=== PATIENT | male | born 1965 | race Two or more races ===

== ENCOUNTER 2019-05-16 11:43 | Inpatient (IN) | payer BC ==
[~2019-05-16] VITALS: Ht 170.2 cm; Wt 81.2 kg
[2019-05-16 11:58] VITALS: BP 146/90
[2019-05-16] MEDS ORDERED: ZOFRAN ODT8 MG ORAL (12:04)
[2019-05-16] MEDS ORDERED: CIPROFLOXACIN750 MG ORAL (12:04)
[2019-05-16] MEDS ORDERED: METRONIDAZOLE500 MG ORAL (12:04)
[2019-05-16] MEDS ORDERED: FAMOTIDINE20 MG ORAL (12:04)
--- NOTE | 2019-05-16 12:05 | NUR ---
ED Nurse Note: Patient walked into ED from home c/o abdominal pain since 05/08/19, patient reports he is currently taking flagyl 500mg cipro 500mg BID. patient's PMD was concerned about bowel obstruction, and sent patient here for further evaluation. patient is on a hospital gown,a/o x4 ambulatory steady gait, breathing unlabored and even.
[2019-05-16] MEDS ORDERED: Omnipaque-300 100ml vial INJ PRN (12:15)
[2019-05-16] MEDS: Morphine Sulfate 4mg/ml Inj (IV USE ONLY) IVP ONE ×2 (12:30→13:02)
--- NOTE | 2019-05-16 12:50 | NUR ---
ED Nurse Note: patient started to drink oral contrast. tolerated.
--- NOTE | 2019-05-16 12:50 | Emergency Room Report ---
History of Present Illness General Chief Complaint: Abdominal Pain Source: Patient Present Illness HPI 54 YO male presents to the ED c/o 01/17 in severity x 9 days. Seen by his PMD 3 days ago and placed onto Flagyl and Cipro. Pt. reports no improvement in his symptoms. He states he is also taking an antiacid which was rx'd to him by another ED which also evaluated him for his symptoms. He denies having any other medical history or medications. He reports US was done at previous ED and was unremarkable. Just began having vomiting today. Denies blood or feces in the vomit. Describes yellow/white bile appearance of vomitus. reports Last loose stool was 5 minutes ago. Pt. reports he is able to pass gas. Denies blood in the stool. He denies recent travel or ill contacts with similar symptoms. Allergies: Coded Allergies: No Known Allergies (Unverified , 05/16/19) Patient History Past Medical History: see triage record Past Surgical History: none Pertinent Family History: none Reviewed Nursing Documentation: PMH: Agreed; PSxH: Agreed Nursing Documentation-PMH Past Medical History: No Stated History Review of Systems All Other Systems: negative except mentioned in HPI Physical Exam Vital Signs Date Time Temp Pulse Resp B/P (MAP) Pulse Ox O2 Delivery O2 Flow Rate FiO2 05/16/19 11:58 99.0 87 19 146/90 (108) 96 Room Air Sp02 EP Interpretation: reviewed, normal General Appearance: alert, GCS 15, non-toxic, mild distress Head: normocephalic, atraumatic Eyes: bilateral eye normal inspection, bilateral eye PERRL ENT: hearing grossly normal, normal voice Neck: full range of motion Respiratory: lungs clear, normal breath sounds, no respiratory distress, no wheezing, speaking full sentences Cardiovascular #1: regular rate, rhythm, no edema Gastrointestinal: normal bowel sounds, soft, distended, tenderness - diffuse. lower quadrants> upper. no specific localization of tenderness to any particular spot. Rectal: deferred Genitourinary: normal inspection, no CVA tenderness Musculoskeletal: normal range of motion, gait/station normal, non-tender Neurologic: alert, motor strength/tone normal, oriented x3, sensory intact, responsive, speech normal Psychiatric: judgement/insight normal Skin: normal color Medical Decision Making PA Attestation Dr. Damon is my supervising physician whom pt. management has been discussed with. Diagnostic Impression: Primary Impression: Acute pancreatitis Qualified Codes: K85.90 - Acute pancreatitis without necrosis or infection, unspecified Additional Impressions: Abdominal pain Qualified Codes: R10.84 - Generalized abdominal pain Elevated bilirubin ER Course 54 YO male presents to the ED c/o 01/17 in severity x 9 days. Seen by his PMD 3 days ago and placed onto Flagyl and Cipro. Pt. reports no improvement in his symptoms. He states he is also taking an antiacid which was rx'd to him by another ED which also evaluated him for his symptoms. He denies having any other medical history or medications. He reports US was done at previous ED and was unremarkable. Just began having vomiting today. Denies blood or feces in the vomit. Describes yellow/white bile appearance of vomitus. reports Last loose stool was 5 minutes ago. Pt. reports he is able to pass gas. Denies blood in the stool. He denies recent travel or ill contacts with similar symptoms. Ddx considered but are not limited to Diverticulitis, acute appy, diarrhea,UC, PUD, GE, pancreatitis, gallstone Vital signs: are WNL, pt. is afebrile H&PE are most consistent with ORDERS: -CBC: WBC 11.9 - CMP: elevated bilirubin of 1.8 -Lipase:WNL -UA: Most indicative of contamination: presence of equal amounts of bacteria and squamous cells, no elevation in inflammatory markers, nitrite negative. ED INTERVENTIONS: -- 4mg morphine ( pt. declined) - Toradol 15mg IV -500cc NS IV Bolus -1 Liter NS IV bolus -PT. NPO DISPOSITION: at this time pt. will be admitted to the [facility] by Dr. Underwood for acute pancreatitis. Dr. Underwood agreed to admit the pt. under the [facility] and to continue pt. care management. Labs Test 05/16/19 12:18 White Blood Count 11.9 K/UL (4.8-10.8) Red Blood Count 5.04 M/UL (4.70-6.10) Hemoglobin 15.5 G/DL (14.2-18.0) Hematocrit 45.8 % (42.0-52.0) Mean Corpuscular Volume 91 FL (80-99) Mean Corpuscular Hemoglobin 30.7 PG (27.0-31.0) Mean Corpuscular Hemoglobin Concent 33.8 G/DL (32.0-36.0) Red Cell Distribution Width 12.7 % (11.6-14.8) Platelet Count 136 K/UL (150-450) Mean Platelet Volume 6.1 FL (6.5-10.1) Neutrophils (%) (Auto) 82.8 % (45.0-75.0) Lymphocytes (%) (Auto) 8.1 % (20.0-45.0) Monocytes (%) (Auto) 7.6 % (1.0-10.0) Eosinophils (%) (Auto) 0.1 % (0.0-3.0) Basophils (%) (Auto) 1.4 % (0.0-2.0) Urine Color Yellow Urine Appearance Clear Urine pH 6 (4.5-8.0) Urine Specific [place] 1.020 (1.005-1.035) Urine Protein 2+ (NEGATIVE) Urine Glucose (UA) Negative (NEGATIVE) Urine Ketones 4+ (NEGATIVE) Urine Blood 1+ (NEGATIVE) Urine Nitrite Negative (NEGATIVE) Urine Bilirubin Negative (NEGATIVE) Urine Urobilinogen Normal MG/DL (0.0-1.0) Urine Leukocyte Esterase 1+ (NEGATIVE) Urine RBC 2-4 /HPF (0 - 0) Urine WBC 0-2 /HPF (0 - 0) Urine Squamous Epithelial Cells Occasional /LPF Urine Bacteria Occasional /HPF (NONE) Urine Mucus Few /LPF (NONE/OCC) Sodium Level 139 MMOL/L (136-145) Potassium Level 4.0 MMOL/L (3.5-5.1) Chloride Level 101 MMOL/L (98-107) Carbon Dioxide Level 30 MMOL/L (21-32) Anion Gap 8 mmol/L (5-15) Blood Urea Nitrogen 10 mg/dL (7-18) Creatinine 1.0 MG/DL (0.55-1.30) Estimat Glomerular Filtration Rate > 60 mL/min (>60) Glucose Level 114 MG/DL (74-106) Calcium Level 8.8 MG/DL (8.5-10.1) Total Bilirubin 1.8 MG/DL (0.2-1.0) Direct Bilirubin 0.4 MG/DL (0.0-0.3) Aspartate Amino Transf (AST/SGOT) 27 U/L (15-37) Alanine Aminotransferase (ALT/SGPT) 41 U/L (12-78) Alkaline Phosphatase 81 U/L (46-116) Total Protein 8.0 G/DL (6.4-8.2) Albumin 3.8 G/DL (3.4-5.0) Globulin 4.2 g/dL Albumin/Globulin Ratio 0.9 (1.0-2.7) Amylase Level 44 U/L (25-115) Lipase 143 U/L (73-393) CT/MRI/US Diagnostic Results CT/MRI/US Diagnostic Results : Imaging Test Ordered: CT Abdomen and Pelvis W. Contrast Impression " Impression: Findings compatible with uncomplicated acute pancreatitis Unusual intermediate attenuation of the portal splenic veins and superior mesenteric vein. Attenuation is lower than expected normal enhancement but somewhat higher than would be expected in thrombosis. Possibly representing flow artifact, although the presence of periportal collaterals does suggest thrombosis. Recommend duplex sonography to confirm Degenerative lumbosacral spondylosis Prostatomegaly ".---- Per official radiology report- Please see report for specific details. Last Vital Signs Date Time Temp Pulse Resp B/P (MAP) Pulse Ox O2 Delivery O2 Flow Rate FiO2 05/16/19 11:58 99.0 87 19 146/90 (108) 96 Room Air Disposition: ADMITTED INPATIENT Condition: Serious Larissa Pena May 16, 2019 12:50
[2019-05-16 12:58] LABS: BASOPHILS % (AUTO) 1.4 % (0.0-2.0); EOSINOPHILS % (AUTO) 0.1 % (0.0-3.0); HEMATOCRIT 45.8 % (42.0-52.0); HEMOGLOBIN 15.5 G/DL (14.2-18.0); LYMPHOCYTES % (AUTO) 8.1 % (20.0-45.0); MEAN CORPUSCULAR VOLUME 91 FL (80-99); MONOCYTES % (AUTO) 7.6 % (1.0-10.0); NEUTROPHILS % (AUTO) 82.8 % (45.0-75.0); PLATELET COUNT 136 K/UL (150-450); RED BLOOD COUNT 5.04 M/UL (4.70-6.10); RED CELL DISTRIBUTION WIDTH 12.7 % (11.6-14.8); WHITE BLOOD COUNT 11.9 K/UL (4.8-10.8)
[2019-05-16 12:59] LABS: APPEARANCE,URINE CLEAR; BILIRUBIN, URINE NEGATIVE (NEGATIVE); GLUCOSE, URINE (UA) NEGATIVE (NEGATIVE); KETONES,URINE 4+ (NEGATIVE); LEUKOCYTE ESTERASE ,URINE 1+ (NEGATIVE); NITRITE,URINE NEGATIVE (NEGATIVE); PH,URINE 6 (4.5-8.0); PROTEIN,URINE 2+ (NEGATIVE); UROBILINOGEN,URINE NORMAL MG/DL (0.0-1.0)
[2019-05-16 13:03] LABS: ANION GAP 8 mmol/L (5-15); BLOOD UREA NITROGEN 10 mg/dL (7-18); CALCIUM 8.8 MG/DL (8.5-10.1); CARBON DIOXIDE 30 MMOL/L (21-32); CHLORIDE 101 MMOL/L (98-107); SODIUM 139 MMOL/L (136-145)
[2019-05-16 13:05] LABS: COLOR,URINE YELLOW
--- NOTE | 2019-05-16 13:07 | Emergency Room Report ---
History of Present Illness General Chief Complaint: Abdominal Pain Source: Patient Present Illness Allergies: Coded Allergies: No Known Allergies (Unverified , 05/16/19) Patient History Past Medical History: see triage record Past Surgical History: none Pertinent Family History: none Reviewed Nursing Documentation: PMH: Agreed; PSxH: Agreed Nursing Documentation-PMH Past Medical History: No Stated History Physical Exam Vital Signs Date Time Temp Pulse Resp B/P (MAP) Pulse Ox O2 Delivery O2 Flow Rate FiO2 05/16/19 11:58 99.0 87 19 146/90 (108) 96 Room Air Medical Decision Making Last Vital Signs Date Time Temp Pulse Resp B/P (MAP) Pulse Ox O2 Delivery O2 Flow Rate FiO2 05/16/19 11:58 99.0 87 19 146/90 (108) 96 Room Air Larissa Pena May 16, 2019 13:07
[2019-05-16 13:18] LABS: ALANINE AMINOTRANSFERASE 41 U/L (12-78); ALBUMIN 3.8 G/DL (3.4-5.0); ALBUMIN/GLOBULIN RATIO 0.9 (1.0-2.7); ALKALINE PHOSPHATASE 81 U/L (46-116); ASPARTATE AMINO TRANSFERASE 27 U/L (15-37); BILIRUBIN,TOTAL 1.8 MG/DL (0.2-1.0)
[2019-05-16] MEDS ORDERED: Ketorolac 30mg Inj IV ONE (13:30)
[2019-05-16 13:58] LABS: BILIRUBIN,DIRECT 0.4 MG/DL (0.0-0.3)
--- NOTE | 2019-05-16 14:44 | NUR ---
ED Nurse Note: patient taken to CT scan.
--- NOTE | 2019-05-16 16:18 | Diagnostic Imaging Report ---
Clinical Indication: Abdominal pain Technique: No oral contrast utilized, per emergency room physician request IV administration nonionic contrast. Venous phase spiral acquisition obtained through the abdomen and pelvis. Multiplanar reconstructions were generated. Total dose length product 1075 mGycm. CTDIvol(s) 19 mGy. Dose reduction achieved using automated exposure control Comparison: none Findings: There is infiltration of the peripancreatic fat and slight indistinctness of the pancreatic margins, particularly in the region of the head and uncinate process. No discrete fluid collections are demonstrated. The pancreas enhances normally. Intrahepatic portal vein radicals and the hepatic veins enhance normally. However, the main portal vein, splenic vein, superior mesenteric vein demonstrate low-attenuation than would be expected with normal enhancement, although a higher in attenuation than would be expected if thrombosed. Also, collateral veins are seen surrounding the main portal vein suggestive of cavernous transformation The liver demonstrates diffuse mild hypoattenuation, consistent with fatty change. No focal abnormalities. The gallbladder is unremarkable. The spleen, adrenals, kidneys are unremarkable. No pelvic mass or adenopathy. The prostate is enlarged. The GI tract is well opacified. The distal esophagus, stomach, duodenum are unremarkable. There is no evidence of diverticulosis or diverticulitis. The appendix is normal. No small bowel distention or small bowel wall thickening. No free or loculated intraperitoneal gas or fluid. The included lung bases are clear. The bones are unremarkable except for degenerative changes of the lumbosacral junction.. Impression: Findings compatible with uncomplicated acute pancreatitis Unusual intermediate attenuation of the portal splenic veins and superior mesenteric vein. Attenuation is lower than expected normal enhancement but somewhat higher than would be expected in thrombosis. Possibly representing flow artifact, although the presence of periportal collaterals does suggest thrombosis. Recommend duplex sonography to confirm Degenerative lumbosacral spondylosis Prostatomegaly The CT scanner at [facility] is accredited by the [employer] and the scans are performed using protocols designed to limit radiation exposure to as low as reasonably achievable to attain images of sufficient resolution adequate for diagnostic evaluation.
--- NOTE | 2019-05-16 16:57 | NUR ---
ED Nurse Note: patient is resting comfortably in bed, in no acute distress
[2019-05-16 17:20] VITALS: BP 128/72
--- NOTE | 2019-05-16 18:15 | NUR ---
NURSE NOTES: Report received from Lois ED RN. Patient [place] [facility] [place] to recommendation from PCP due to abdominal pain. Ruled out bowel obstruction, but found to have pancreatitis. Admitted inpatient due to new found pancreatitis. Patient brought to via wheel chair. Belongings received. Reviewed with patient and ED patient director of healthcare systems. All belongings on bedside night stand with patient. Patient declined locking up anything with security. Patient able to ambulate to bed. No complaints of chest pain or shortness of breath. Patient awake and alert x 4. No complaints of pain at this time, patient states that pain medication given in ED relieved him from his abdominal pain. Skin in tact, no open areas, no skin issues to be noted. 20 ulices IV noted in left ac. IV patent, flushes, and intact. Oriented patient to unit. Educated patient to call for any needs or concerns. Patient was able to verbalize that he will make his needs known. Currently NPO. Patient has no needs to be met at this time. Will pass along to next shift to finish patient admission. will continue to follow plan of care in the meantime.
--- NOTE | 2019-05-16 18:15 | NUR ---
ED Nurse Note: patient is transferred to with [employer] [employer] with all of his belongings.
[2019-05-16 18:31] VITALS: BP 147/79
--- NOTE | 2019-05-16 19:16 | NUR ---
HAND-OFF: Report given to Cherrie SAHU.Patienta wake and alert x 4. Patient in stable condition. Communicated to Cherrie SAHU that admission still needs to be completed.
[2019-05-16] MEDS ORDERED: Mylanta II UD 30ml ORAL PRN (20:15)
[2019-05-16] MEDS: Heparin 5000 units/ml inj SUBQ SCH (21:00)
[2019-05-16] MEDS: LR 1000ml 1,000 ML IV SCH (21:45)
[2019-05-16] MEDS: Piperacillin/Tazobactam 3.375 GM in NS 110 ML IVPB SCH (21:45)
--- NOTE | 2019-05-16 23:05 | NUR ---
NURSE NOTES: Received pt from Jerome SAHU. pt is awake, alert and verbally able to needs known. Breathing on room air no acute distress noted. no c/o pain, n/v at this time. Administered medication as ordered and pt tolerated well. Instructed pt about NPO status and pt verbalized understanding. Bed in low and locked position. Call light within reach. will continue to monitor the pt.
[2019-05-17] VITALS: BP 137/80
[2019-05-17] MEDS: Hydromorphone 0.5mg/0.5ml inj IVP PRN ×2 (01:35→05:29)
[2019-05-17 04:42] VITALS: BP 134/63
[2019-05-17] MEDS: LR 1000ml 1,000 ML IV SCH ×4 (05:32→22:30)
[2019-05-17] MEDS: Piperacillin/Tazobactam 3.375 GM in NS 110 ML IVPB SCH (05:33)
[2019-05-17 06:33] LABS: HEMATOCRIT 43.9 % (42.0-52.0); LYMPHOCYTES % (AUTO) 20.3 % (20.0-45.0); MEAN CORPUSCULAR VOLUME 93 FL (80-99); MONOCYTES % (AUTO) 10.8 % (1.0-10.0); NEUTROPHILS % (AUTO) 66.9 % (45.0-75.0); PLATELET COUNT 137 K/UL (150-450); RED BLOOD COUNT 4.74 M/UL (4.70-6.10)
[2019-05-17 06:56] LABS: ALANINE AMINOTRANSFERASE 34 U/L (12-78); ALBUMIN 3.3 G/DL (3.4-5.0); ALBUMIN/GLOBULIN RATIO 0.8 (1.0-2.7); ALKALINE PHOSPHATASE 76 U/L (46-116); ANION GAP 10 mmol/L (5-15); ASPARTATE AMINO TRANSFERASE 25 U/L (15-37); BILIRUBIN,TOTAL 1.8 MG/DL (0.2-1.0); BLOOD UREA NITROGEN 13 mg/dL (7-18); CALCIUM 8.4 MG/DL (8.5-10.1); CARBON DIOXIDE 28 MMOL/L (21-32); CHLORIDE 104 MMOL/L (98-107); CREATININE 1.2 MG/DL (0.55-1.30); POTASSIUM 3.5 MMOL/L (3.5-5.1); SODIUM 142 MMOL/L (136-145)
[2019-05-17] MEDS ORDERED: Morphine Sulfate 4mg/ml Inj (IV USE ONLY) IVP SCH (07:00)
[2019-05-17 07:02] LABS: BILIRUBIN,DIRECT 0.4 MG/DL (0.0-0.3)
--- NOTE | 2019-05-17 07:30 | NUR ---
HAND-OFF: Report given to LUIS ALBERTO Abreu.
--- NOTE | 2019-05-17 07:50 | NUR ---
NURSE NOTES: received report from LUIS ALBERTO Will. patient in bed. alert. oriented. verbally responsive. no respiratory distress noted. c/o pain on ABD. given morphine by LUIS ALBERTO Will. will monitor pain level. IV on LAC 20g running LR@125/hr and zosyn. the bed in the lowest position and locked. call light within reach. will continue to provide plan of care.
[2019-05-17 08:00] VITALS: BP 155/102
--- NOTE | 2019-05-17 08:20 | History and Physical ---
History of Present Illness General Date patient seen: May 17, 2019 Reason for Hospitalization: Abdominal Pain Present Illness HPI This is a 54-year-old male, very pleasant, with no known medical problems who presented to the emergency department with 10 out of 10 abdominal pain that initially started on May 08 and progressively got worse pain is mainly in the epigastric region radiating to the back and has progressively gotten worse and is diffuse. Patient complains of some loose stools and few episodes of nonbloody emesis. He had an extensive work-up by his primary care doctor which was unrevealing for the most part, including stool studies, but was notable for mild leukocytosis with WBC count of 10, hepatitis B core IgG antibodies positive , hepatitis B surface antibody >1000, hepatitis A antibody reactive, CRP, 38, CK level in the 237 (mildly elevated), ALT 45, platelet count 125. Pain persisted and got worse and patient was sent to the emergency room by his primary care physician. He denies any chest pain, palpitations, dizziness, lightheadedness, shortness of breath, lower extremity edema, fever, chills. Patient denies excessive alcohol use however he tells me he was drinking more than usual during the holiday season. He denies any ctxd-pxy-safhmra medications, recent travel or any known insect bites. ED course: On arrival vitals: BP 146/90, pulse 87, temperature 99 Fahrenheit, oxygen saturation 97% on room air Lipase within normal limits CT abdomen pelvis was suggestive of acute pancreatitis and he was admitted for further management. 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 Family history: History of pancreatic cancer grandfather Allergies: Coded Allergies: No Known Allergies (Unverified , 05/16/19) Medication History Scheduled Ciprofloxacin Hcl (Ciprofloxacin Hcl*), 500 MG ORAL DAILY, (Reported) Famotidine* (Pepcid 20mg tablet*), 20 MG ORAL TWICE A DAY, (Reported) Metronidazole* (Flagyl*), 500 MG ORAL THREE TIMES A DAY, (Reported) Scheduled PRN Ondansetron Odt* (Zofran Odt*), 4 MG ORAL Q6H PRN for Nausea & Vomiting, ( Reported) Patient History Healthcare decision maker Resuscitation status Full Code Advanced Directive on File Review of Systems Constitutional: Denies: no symptoms, see HPI, chills, sweats, fever, malaise, weakness, other Eye: Denies: no symptoms, see HPI, eye pain, blurred vision, tearing, double vision, nose pain, nose congestion, acuity changes, discharge, other ENT: Denies: no symptoms, see HPI, ear pain, ear discharge, nose pain, nose congestion, throat pain, throat swelling, mouth pain, hearing loss, nasal discharge, other Respiratory: Denies: no symptoms, see HPI, cough, orthopnea, shortness of breath, stridor, wheezing, REYNOLDS, sputum, other Cardiovascular: Denies: no symptoms, see HPI, chest pain, edema, palpitations, syncope, PND, other Gastrointestinal: Reports: abdominal pain, diarrhea, nausea, vomiting Genitourinary: Denies: no symptoms, see HPI, discharge, dysuria, frequency, hematuria, pain, retention, incontinence, urgency, vag bleed/dc, other Musculoskeletal: Denies: no symptoms, see HPI, back pain, gout, joint pain, joint swelling, muscle pain, muscle stiffness, other Skin: Denies: no symptoms, see HPI, rash, change in color, change in hair/nails , dryness, lesions, other Psychiatric: Denies: no symptoms, see HPI, prior hx, anxiety, depressed feelings, emotional problems, SI, HI, hallucinations, other Neurological: Denies: no symptoms, see HPI, headache, numbness, paresthesia, seizure, tingling, tremors, focal weakness, syncope, dizziness, other Endocrine: Denies: no symptoms, see HPI, excessive sweating, flushing, intolerance to temperature, increased thirst, increased urine, unexplained weight loss, other Hematologic/Lymphatic: Denies: no symptoms, see HPI, anemia, blood clots, easy bleeding, easy bruising, swollen glands, diathesis, other Physical Exam General Appearance: alert, severe distress - due to pain Lines, tubes and drains: peripheral HEENT: normocephalic, atraumatic, anicteric, mucous membranes moist, PERRL, EOMI Neck: non-tender, supple Respiratory/Chest: chest wall non-tender, lungs clear, normal breath sounds, no respiratory distress, no accessory muscle use Cardiovascular/Chest: normal peripheral pulses, normal rate, regular rhythm, no gallop/murmur, no JVD Abdomen: soft, tender - epigastric mainly, also diffuse. No guarding, no rebound Extremities: normal range of motion, no edema, no cyanosis Skin Exam: normal pigmentation, warm/dry Neurologic: no motor/sensory deficits, alert, oriented x 3, responsive Musculoskeletal: normal muscle bulk Last 24 Hour Vital Signs Date Time Temp Pulse Resp B/P (MAP) Pulse Ox O2 Delivery O2 Flow Rate FiO2 05/17/19 08:00 100.0 83 17 155/102 (119) 99 05/17/19 04:42 98.1 60 18 134/63 (86) 97 05/17/19 00:00 98.0 63 18 137/80 (99) 97 05/16/19 21:00 Room Air 05/16/19 20:48 Room Air 05/16/19 18:31 99.1 79 18 147/79 (101) 98 05/16/19 18:15 99.0 82 19 128/72 96 Room Air 05/16/19 17:20 99.0 82 19 128/72 96 Room Air 05/16/19 14:07 99.0 05/16/19 13:08 87 19 Room Air 05/16/19 11:58 99.0 87 19 146/90 (108) 96 Room Air 05/16/19 11:58 99.0 87 19 146/90 96 Room Air Intake and Output 05/16/19 05/17/19 19:00 07:00 Intake Total 985.0 ml Balance 985.0 ml Intake IV Total 985.0 ml # Voids 1 Laboratory Tests Test 05/16/19 12:18 05/17/19 05:21 White Blood Count 11.9 K/UL (4.8-10.8) H 11.0 K/UL (4.8-10.8) H Red Blood Count 5.04 M/UL (4.70-6.10) 4.74 M/UL (4.70-6.10) Hemoglobin 15.5 G/DL (14.2-18.0) 15.0 G/DL (14.2-18.0) Hematocrit 45.8 % (42.0-52.0) 43.9 % (42.0-52.0) Mean Corpuscular Volume 91 FL (80-99) 93 FL (80-99) Mean Corpuscular Hemoglobin 30.7 PG (27.0-31.0) 31.6 PG (27.0-31.0) H Mean Corpuscular Hemoglobin Concent 33.8 G/DL (32.0-36.0) 34.1 G/DL (32.0-36.0) Red Cell Distribution Width 12.7 % (11.6-14.8) 13.0 % (11.6-14.8) Platelet Count 136 K/UL (150-450) L 137 K/UL (150-450) L Mean Platelet Volume 6.1 FL (6.5-10.1) L 6.4 FL (6.5-10.1) L Neutrophils (%) (Auto) 82.8 % (45.0-75.0) H 66.9 % (45.0-75.0) Lymphocytes (%) (Auto) 8.1 % (20.0-45.0) L 20.3 % (20.0-45.0) Monocytes (%) (Auto) 7.6 % (1.0-10.0) 10.8 % (1.0-10.0) H Eosinophils (%) (Auto) 0.1 % (0.0-3.0) 1.0 % (0.0-3.0) Basophils (%) (Auto) 1.4 % (0.0-2.0) 1.0 % (0.0-2.0) Urine Color Yellow Urine Appearance Clear Urine pH 6 (4.5-8.0) Urine Specific [place] 1.020 (1.005-1.035) Urine Protein 2+ (NEGATIVE) H Urine Glucose (UA) Negative (NEGATIVE) Urine Ketones 4+ (NEGATIVE) H Urine Blood 1+ (NEGATIVE) H Urine Nitrite Negative (NEGATIVE) Urine Bilirubin Negative (NEGATIVE) Urine Urobilinogen Normal MG/DL (0.0-1.0) Urine Leukocyte Esterase 1+ (NEGATIVE) H Urine RBC 2-4 /HPF (0 - 0) H Urine WBC 0-2 /HPF (0 - 0) Urine Squamous Epithelial Cells Occasional /LPF Urine Bacteria Occasional /HPF (NONE) Urine Mucus Few /LPF (NONE/OCC) H Sodium Level 139 MMOL/L (136-145) 142 MMOL/L (136-145) Potassium Level 4.0 MMOL/L (3.5-5.1) 3.5 MMOL/L (3.5-5.1) Chloride Level 101 MMOL/L (98-107) 104 MMOL/L (98-107) Carbon Dioxide Level 30 MMOL/L (21-32) 28 MMOL/L (21-32) Anion Gap 8 mmol/L (5-15) 10 mmol/L (5-15) Blood Urea Nitrogen 10 mg/dL (7-18) 13 mg/dL (7-18) Creatinine 1.0 MG/DL (0.55-1.30) 1.2 MG/DL (0.55-1.30) Estimat Glomerular Filtration Rate > 60 mL/min (>60) > 60 mL/min (>60) Glucose Level 114 MG/DL (74-106) H 94 MG/DL (74-106) Calcium Level 8.8 MG/DL (8.5-10.1) 8.4 MG/DL (8.5-10.1) L Total Bilirubin 1.8 MG/DL (0.2-1.0) H 1.8 MG/DL (0.2-1.0) H Direct Bilirubin 0.4 MG/DL (0.0-0.3) H 0.4 MG/DL (0.0-0.3) H Aspartate Amino Transf (AST/SGOT) 27 U/L (15-37) 25 U/L (15-37) Alanine Aminotransferase (ALT/SGPT) 41 U/L (12-78) 34 U/L (12-78) Alkaline Phosphatase 81 U/L (46-116) 76 U/L (46-116) Total Protein 8.0 G/DL (6.4-8.2) 7.4 G/DL (6.4-8.2) Albumin 3.8 G/DL (3.4-5.0) 3.3 G/DL (3.4-5.0) L Globulin 4.2 g/dL 4.1 g/dL Albumin/Globulin Ratio 0.9 (1.0-2.7) L 0.8 (1.0-2.7) L Amylase Level 44 U/L (25-115) Lipase 143 U/L (73-393) Height (Feet): 5 Height (Inches): 7.00 Weight (Pounds): 170 Medications Current Medications Medications (Trade) Dose Ordered Sig/Tonie Route PRN Reason Start Time Stop Time Status Last Admin Dose Admin Acetaminophen (Tylenol) 650 mg Q4H PRN ORAL fever 05/16/19 20:19 06/15/19 20:18 Al Hydroxide/Mg Hydroxide (Mylanta II) 30 ml Q6H PRN ORAL dyspepsia 05/16/19 20:15 06/15/19 20:14 Barium Sulfate (Readi-Cat 2) 450 ml NOW PRN ORAL Radiology Procedure 05/16/19 12:15 05/18/19 12:07 Dextrose (Dextrose 50%) 25 ml Q30M PRN IV Hypoglycemia 05/16/19 20:15 06/15/19 20:14 Dextrose (Dextrose 50%) 50 ml Q30M PRN IV Hypoglycemia 05/16/19 20:15 06/15/19 20:14 Diphenhydramine HCl (Benadryl) 25 mg Q6H PRN ORAL Itching/Pruritis 05/16/19 20:15 06/15/19 20:14 Heparin Sodium (Porcine) (Heparin 5000 units/ml) 5,000 units EVERY 12 HOURS SUBQ 05/16/19 21:00 06/15/19 20:59 Hydromorphone HCl (Dilaudid) 0.5 mg Q4H PRN IVP For Pain 05/16/19 20:19 05/23/19 20:18 05/17/19 05:29 Iohexol (OMNIPAQUE-300 100ml) 100 ml NOW PRN INJ Radiology Procedure 05/16/19 12:15 05/18/19 12:07 Lactated Ringer's 1,000 ml @ 125 mls/hr Q8H IV 05/16/19 22:00 06/15/19 21:59 05/17/19 05:32 Ondansetron HCl (Zofran) 4 mg Q6H PRN IVP Nausea & Vomiting 05/16/19 20:15 06/15/19 20:14 Piperacillin Sod/ Tazobactam Sod 3.375 gm/Sodium Chloride 110 ml @ 27.5 mls/hr EVERY 8 HOURS IVPB 05/16/19 22:00 05/21/19 21:59 05/17/19 05:[address] abdomen pelvis with IV contrast: There is infiltration of the peripancreatic fat and slight indistinctness of the pancreatic margins, particularly in the region of the head and uncinate process. No discrete fluid collections are demonstrated. The pancreas enhances normally. Intrahepatic portal vein radicals and the hepatic veins enhance normally. However, the main portal vein, splenic vein, superior mesenteric vein demonstrate low-attenuation than would be expected with normal enhancement, although a higher in attenuation than would be expected if thrombosed. Also, collateral veins are seen surrounding the main portal vein suggestive of cavernous transformation The liver demonstrates diffuse mild hypoattenuation, consistent with fatty change. No focal abnormalities. The gallbladder is unremarkable. The spleen, adrenals, kidneys are unremarkable. No pelvic mass or adenopathy. The prostate is enlarged. The GI tract is well opacified. The distal esophagus, stomach, duodenum are unremarkable. There is no evidence of diverticulosis or diverticulitis. The appendix is normal. No small bowel distention or small bowel wall thickening. No free or loculated intraperitoneal gas or fluid. The included lung bases are clear. The bones are unremarkable except for degenerative changes of the lumbosacral junction.. Impression: Findings compatible with uncomplicated acute pancreatitis Abdominal ultrasound: The liver is heterogeneous showing a coarsened echotexture and is overall increase in echogenicity consistent with fatty infiltration.. Doppler interrogation of the main portal vein shows patency with hepatopedal, monophasic flow. There is no biliary ductal dilatation identified. Gallbladder is unremarkable. CBD is 3.8 mm in diameter. There demonstrated part of the pancreas, aorta and IVC show no definite abnormalities. Both kidneys appear unremarkable. There is no hydronephrosis. IMPRESSION: Fatty liver. No evidence of biliary ductal dilatation. Assessment/Plan Problem List: (1) Acute pancreatitis ICD Codes: K85.90 - Acute pancreatitis without necrosis or infection, unspecified SNOMED: 204176372 Qualifiers: Qualified Codes: K85.90 - Acute pancreatitis without necrosis or infection, unspecified (2) Fatty liver ICD Codes: K76.0 - Fatty (change of) liver, not elsewhere classified SNOMED: 316943159 (3) Elevated bilirubin ICD Codes: R17 - Unspecified jaundice SNOMED: 07565805 Status: stable Assessment/Plan: This is a 54-year-old male who presented with severe abdominal pain. His amylase and lipase are within normal limits however his CT abdomen pelvis demonstrated acute uncomplicated pancreatitis. He denies heavy alcohol use however admits that he was drinking more than usual during the holiday season. His LFTs are only remarkable for an elevated bilirubin of 1.8 with normal transaminases. His lactic acid is within normal limits at 1.7 which would go against bowel ischemia. His abdominal ultrasound shows fatty liver. Unremarkable gallbladder and there is no biliary ductal dilatation. Doppler interrogation of the main portal vein shows patency with hepatopetal monophasic flow. 1. Acute pancreatitis. Possibly alcohol induced 2. Fatty infiltration of the liver 3. Elevated bilirubin 1.8 4. Mild leukocytosis, likely reactive 5. Previous exposure to hepatitis B Plan Admit to [facility] N.p.o. IV hydration with IV NS at continuous 150 mL/h Pain control with IV morphine 2mg every 4 hours for mild pain, IV Dilaudid 1 mg every 4 hours for moderate pain and 2 mg every 4 hours for severe pain GI consult Dr. Gonzalez, Surgical consult Dr. Lyon Rule out acute coronary syndrome, troponin, CPK, EKG Check lipid panel, hemoglobin A1c Monitor LFTs Monitor white count GI and DVT prophylaxis: Heparin subcutaneous I spent 70 minutes on this encounter. Greater than 50% spent on counseling and care coordination. I spent an additional 35 minutes in reviewing the outside records, labs, imaging and discussing with primary care provider and consultants. Case discussed at length with all consultants and patient's primary care provider . Time of note may not reflect time of encounter. Amor Hopper M.D. May 17, 2019 08:20
[2019-05-17] MEDS: Heparin 5000 units/ml inj SUBQ SCH ×2 (09:00→21:00)
[2019-05-17] MEDS ORDERED: HYDROmorphone 2 MG in NS 55 ML IVPB PRN (09:00)
[2019-05-17] MEDS ORDERED: HYDROmorphone 1mg/ml Carpuject IVP SCH (09:00)
--- NOTE | 2019-05-17 10:45 | NUR ---
CASE MANAGEMENT:REVIEW 54 YR OLD MALE PRESENTED TO ER FROM HOME CC;ABDOMINAL PAIN SI;ACUTE PANCREATITIS. ELEVATED BILIRUBIN. 99.0 82 19 128/72 96% ON RA WBC 11.9 T [address]I 1.[address] = ACUTE PANCREATITIS IS;IV MORPHINE X1 IV TORADOL X1 IV PEPCID X1 IV ZOFRAN X1 IVF NS BOLUS X1 ADMITTED TO MED SURG MED SURG STATUS DCP;TO HOME
--- NOTE | 2019-05-17 10:51 | NUR ---
*-* INSURANCE *-* ALL AVAILABLE CLINICALS HAVE BEEN FAXED TO: [facility] REF#[id number] NO [facility]#[phone] FAX#[phone] REVIEWS/CLINICALS
--- NOTE | 2019-05-17 11:56 | General Progress Note ---
Assessment/Plan Problem List: (1) Abdominal pain ICD Codes: R10.9 - Unspecified abdominal pain SNOMED: 53992925 Qualifiers: Qualified Codes: R10.84 - Generalized abdominal pain (2) Acute pancreatitis ICD Codes: K85.90 - Acute pancreatitis without necrosis or infection, unspecified SNOMED: 317229718 Qualifiers: Qualified Codes: K85.90 - Acute pancreatitis without necrosis or infection, unspecified (3) Elevated bilirubin ICD Codes: R17 - Unspecified jaundice SNOMED: 10700689 Assessment/Plan: IVF NPO H/O ETOH usage abd us CT reviewed thiamine/folate/MVI Subjective ROS Limited/Unobtainable: Yes Allergies: Coded Allergies: No Known Allergies (Unverified , 05/16/19) Objective Last 24 Hour Vital Signs Date Time Temp Pulse Resp B/P (MAP) Pulse Ox O2 Delivery O2 Flow Rate FiO2 05/17/19 09:00 Room Air 05/17/19 08:00 100.0 83 17 155/102 (119) 99 05/17/19 04:42 98.1 60 18 134/63 (86) 97 05/17/19 00:00 98.0 63 18 137/80 (99) 97 05/16/19 21:00 Room Air 05/16/19 20:48 Room Air 05/16/19 18:31 99.1 79 18 147/79 (101) 98 05/16/19 18:15 99.0 82 19 128/72 96 Room Air 05/16/19 17:20 99.0 82 19 128/72 96 Room Air 05/16/19 14:07 99.0 05/16/19 13:08 87 19 Room Air 05/16/19 11:58 99.0 87 19 146/90 (108) 96 Room Air 05/16/19 11:58 99.0 87 19 146/90 96 Room Air Intake and Output 05/16/19 05/17/19 19:00 07:00 Intake Total 985.0 ml Balance 985.0 ml Intake IV Total 985.0 ml # Voids 1 Laboratory Tests 05/16/19 12:18: White Blood Count 11.9H, Red Blood Count 5.04, Hemoglobin 15.5, Hematocrit 45.8 , Mean Corpuscular Volume 91, Mean Corpuscular Hemoglobin 30.7, Mean Corpuscular Hemoglobin Concent 33.8, Red Cell Distribution Width 12.7, Platelet Count 136L, Mean Platelet Volume 6.1L, Neutrophils (%) (Auto) 82.8H, Lymphocytes (%) (Auto) 8.1L, Monocytes (%) (Auto) 7.6, Eosinophils (%) (Auto) 0.1, Basophils (%) (Auto) 1.4, Urine Color Yellow, Urine Appearance Clear, Urine pH 6, Urine Specific [place] 1.020, Urine Protein 2+H, Urine Glucose (UA) Negative, Urine Ketones 4+H, Urine Blood 1+H, Urine Nitrite Negative, Urine Bilirubin Negative, Urine Urobilinogen Normal, Urine Leukocyte Esterase 1+H, Urine RBC 2-4H, Urine WBC 0-2, Urine Squamous Epithelial Cells Occasional, Urine Bacteria Occasional, Urine Mucus FewH, Sodium Level 139, Potassium Level 4.0, Chloride Level 101, Carbon Dioxide Level 30, Anion Gap 8, Blood Urea Nitrogen 10, Creatinine 1.0, Estimat Glomerular Filtration Rate > 60, Glucose Level 114H, Calcium Level 8.8, Total Bilirubin 1.8H, Direct Bilirubin 0.4H, Aspartate Amino Transf (AST/SGOT) 27, Alanine Aminotransferase (ALT/SGPT) 41, Alkaline Phosphatase 81, Total Protein 8.0, Albumin 3.8, Globulin 4.2, Albumin/ Globulin Ratio 0.9L, Amylase Level 44, Lipase 143 05/17/19 05:21: White Blood Count 11.0H, Red Blood Count 4.74, Hemoglobin 15.0, Hematocrit 43.9 , Mean Corpuscular Volume 93, Mean Corpuscular Hemoglobin 31.6H, Mean Corpuscular Hemoglobin Concent 34.1, Red Cell Distribution Width 13.0, Platelet Count 137L, Mean Platelet Volume 6.4L, Neutrophils (%) (Auto) 66.9, Lymphocytes (%) (Auto) 20.3, Monocytes (%) (Auto) 10.8H, Eosinophils (%) (Auto) 1.0, Basophils (%) (Auto) 1.0, Sodium Level 142, Potassium Level 3.5, Chloride Level 104, Carbon Dioxide Level 28, Anion Gap 10, Blood Urea Nitrogen 13, Creatinine 1.2, Estimat Glomerular Filtration Rate > 60, Glucose Level 94, Calcium Level 8.4L, Total Bilirubin 1.8H, Direct Bilirubin 0.4H, Aspartate Amino Transf (AST/ SGOT) 25, Alanine Aminotransferase (ALT/SGPT) 34, Alkaline Phosphatase 76, Total Protein 7.4, Albumin 3.3L, Globulin 4.1, Albumin/Globulin Ratio 0.8L, Hepatitis A IgM Antibody [Pending], Hepatitis B Surface Antigen [Pending], Hepatitis B Core IgM Antibody [Pending], Hepatitis C Antibody [Pending] 05/17/19 09:45: Lactic Acid Level 1.70 Height (Feet): 5 Height (Inches): 7.00 Weight (Pounds): 170 General Appearance: alert EENT: normal ENT inspection Neck: supple Cardiovascular: normal rate Respiratory/Chest: lungs clear Abdomen: hypoactive bowel sounds, tender Extremities: non-tender Christopher Gonzalez MD May 17, 2019 11:56
[2019-05-17 12:00] VITALS: BP 134/72
--- NOTE | 2019-05-17 12:45 | NUR ---
NURSE NOTES: ordered Duplex Art Abd/PEl. US tech Kinsey said that US doesn't do Duplex Art procedure anymore. notified Dr. dalton and cancelled procedure.
[2019-05-17] MEDS ORDERED: Morphine Sulfate 2mg/ml Inj(IV/IM USE ONLY) IVP PRN (13:00)
[2019-05-17] MEDS ORDERED: HYDROmorphone 1mg/ml Carpuject IVP PRN (13:00)
--- NOTE | 2019-05-17 15:17 | Consultation ---
History of Present Illness General Date patient seen: May 17, 2019 Reason for Hospitalization: Abdominal Pain Present Illness HPI This is a 54-year-old very pleasant male with no significant past medical history who presents to the emergency department at [facility] complaining of worsening abdominal pain. Patient states that pain began initially around May 08, 2019 and has persisted since intermittently getting worse. Has been followed by his primary care physician on outpatient setting with extensive work-up but no definitive etiology found yet. Patient states pain was recently worsening came to emergency room for evaluation. Intermittent nausea and emesis nonbloody. Passing flatus and normal bowel movements. States had been drinking prior but has not been currently. On admission noted to have slight leukocytosis and elevated T bili. CT scan as below. Surgery called to evaluate and assist with care. Patient seen, patient evaluated, chart reviewed. States pain cramping generalized abdominal pain. Currently 6 out of 10 since given pain medication but 10 out of 10 without. radiation to the back Allergies: Coded Allergies: No Known Allergies (Unverified , 05/16/19) Medication History Scheduled Ciprofloxacin Hcl (Ciprofloxacin Hcl*), 500 MG ORAL DAILY, (Reported) Famotidine* (Pepcid 20mg tablet*), 20 MG ORAL TWICE A DAY, (Reported) Metronidazole* (Flagyl*), 500 MG ORAL THREE TIMES A DAY, (Reported) Scheduled PRN Ondansetron Odt* (Zofran Odt*), 4 MG ORAL Q6H PRN for Nausea & Vomiting, ( Reported) Patient History History Provided By: Patient Healthcare decision maker Resuscitation status Full Code Advanced Directive on File Past Medical/Surgical History Past Medical/Surgical History: (1) Elevated bilirubin (2) Abdominal pain (3) Acute pancreatitis Review of Systems Review of Symptoms General ROS: no weight loss or fever Psychological ROS: no depression or mood changes, no memory loss Ophthalmic ROS: no visual changes or eye irritation ENT ROS: no nasal congestion, hearing loss, dizziness Allergy and Immunology ROS: no allergic symptoms or urticaria Hematological and Lymphatic ROS: no swollen glands, unusual bleeding or bruising Endocrine ROS: no polyuria, polydipsia, weight changes, temperature intolerance Respiratory ROS: no cough, shortness of breath, or wheezing Cardiovascular ROS: no chest pain or dyspnea on exertion Gastrointestinal ROS: abdominal pain, bright red blood in stool. Musculoskeletal ROS: no myalgias or arthralgias Neurological ROS: no TIA or stroke symptoms Dermatological ROS: no new or changing skin lesions, rashes or pruritis Physical Exam Physical Exam General appearance: alert, cooperative, no distress, appears stated age Head: Normocephalic, without obvious abnormality, atraumatic Eyes: conjunctivae/corneas clear. PERRL, EOM's intact. Fundi benign Throat: Lips, mucosa, and tongue normal. Teeth and gums normal Neck: supple, symmetrical, trachea midline, no adenopathy, thyroid: not enlarged, symmetric, no tenderness/mass/nodules, no carotid bruit and no JVD Lungs: clear to auscultation bilaterally Heart: regular rate and rhythm, S1, S2 normal, no murmur, click, rub or gallop Abdomen: soft, mild discomfort/tender. Bowel sounds normal. No masses, no organomegaly Extremities: extremities normal, atraumatic, no cyanosis or edema Pulses: 2+ and symmetric Skin: Skin color, texture, turgor normal. No rashes or lesions Neurologic: Grossly normal Last 24 Hour Vital Signs Date Time Temp Pulse Resp B/P (MAP) Pulse Ox O2 Delivery O2 Flow Rate FiO2 05/17/19 12:00 98.1 82 16 134/72 (92) 99 05/17/19 09:00 Room Air 05/17/19 08:00 100.0 83 17 155/102 (119) 99 05/17/19 04:42 98.1 60 18 134/63 (86) 97 05/17/19 00:00 98.0 63 18 137/80 (99) 97 05/16/19 21:00 Room Air 05/16/19 20:48 Room Air 05/16/19 18:31 99.1 79 18 147/79 (101) 98 05/16/19 18:15 99.0 82 19 128/72 96 Room Air 05/16/19 17:20 99.0 82 19 128/72 96 Room Air Intake and Output 05/16/19 05/17/19 19:00 07:00 Intake Total 985.0 ml Balance 985.0 ml Intake IV Total 985.0 ml # Voids 1 Laboratory Tests Test 05/17/19 05:21 05/17/19 09:45 White Blood Count 11.0 K/UL (4.8-10.8) H Red Blood Count 4.74 M/UL (4.70-6.10) Hemoglobin 15.0 G/DL (14.2-18.0) Hematocrit 43.9 % (42.0-52.0) Mean Corpuscular Volume 93 FL (80-99) Mean Corpuscular Hemoglobin 31.6 PG (27.0-31.0) H Mean Corpuscular Hemoglobin Concent 34.1 G/DL (32.0-36.0) Red Cell Distribution Width 13.0 % (11.6-14.8) Platelet Count 137 K/UL (150-450) L Mean Platelet Volume 6.4 FL (6.5-10.1) L Neutrophils (%) (Auto) 66.9 % (45.0-75.0) Lymphocytes (%) (Auto) 20.3 % (20.0-45.0) Monocytes (%) (Auto) 10.8 % (1.0-10.0) H Eosinophils (%) (Auto) 1.0 % (0.0-3.0) Basophils (%) (Auto) 1.0 % (0.0-2.0) Sodium Level 142 MMOL/L (136-145) Potassium Level 3.5 MMOL/L (3.5-5.1) Chloride Level 104 MMOL/L (98-107) Carbon Dioxide Level 28 MMOL/L (21-32) Anion Gap 10 mmol/L (5-15) Blood Urea Nitrogen 13 mg/dL (7-18) Creatinine 1.2 MG/DL (0.55-1.30) Estimat Glomerular Filtration Rate > 60 mL/min (>60) Glucose Level 94 MG/DL (74-106) Calcium Level 8.4 MG/DL (8.5-10.1) L Total Bilirubin 1.8 MG/DL (0.2-1.0) H Direct Bilirubin 0.4 MG/DL (0.0-0.3) H Aspartate Amino Transf (AST/SGOT) 25 U/L (15-37) Alanine Aminotransferase (ALT/SGPT) 34 U/L (12-78) Alkaline Phosphatase 76 U/L (46-116) Total Protein 7.4 G/DL (6.4-8.2) Albumin 3.3 G/DL (3.4-5.0) L Globulin 4.1 g/dL Albumin/Globulin Ratio 0.8 (1.0-2.7) L Hepatitis A IgM Antibody Pending Hepatitis B Surface Antigen Pending Hepatitis B Core IgM Antibody Pending Hepatitis C Antibody Pending Lactic Acid Level 1.70 mmol/L (0.4-2.0) Height (Feet): 5 Height (Inches): 7.00 Weight (Pounds): 170 Medications Current Medications Medications (Trade) Dose Ordered Sig/Tonie Route PRN Reason Start Time Stop Time Status Last Admin Dose Admin Acetaminophen (Tylenol) 650 mg Q4H PRN ORAL fever 05/16/19 20:19 06/15/19 20:18 Al Hydroxide/Mg Hydroxide (Mylanta II) 30 ml Q6H PRN ORAL dyspepsia 05/16/19 20:15 06/15/19 20:14 Barium Sulfate (Readi-Cat 2) 450 ml NOW PRN ORAL Radiology Procedure 05/16/19 12:15 05/18/19 12:07 Dextrose (Dextrose 50%) 25 ml Q30M PRN IV Hypoglycemia 05/16/19 20:15 06/15/19 20:14 Dextrose (Dextrose 50%) 50 ml Q30M PRN IV Hypoglycemia 05/16/19 20:15 06/15/19 20:14 Diphenhydramine HCl (Benadryl) 25 mg Q6H PRN ORAL Itching/Pruritis 05/16/19 20:15 06/15/19 20:14 Folic Acid (Folate) 1 mg DAILY ORAL 05/18/19 09:00 06/17/19 08:59 Heparin Sodium (Porcine) (Heparin 5000 units/ml) 5,000 units EVERY 12 HOURS SUBQ 05/16/19 21:00 06/15/19 20:59 Hydromorphone HCl (Dilaudid) 1 mg Q4H PRN IVP For Pain 4-6 05/17/19 13:00 05/24/19 12:59 Hydromorphone HCl (Dilaudid) 2 mg Q4H PRN IVP Severe Pain (Pain Scale 7-10) 05/17/19 13:00 05/24/19 12:59 05/17/19 14:13 Iohexol (OMNIPAQUE-300 100ml) 100 ml NOW PRN INJ Radiology Procedure 05/16/19 12:15 05/18/19 12:07 Lactated Ringer's 1,000 ml @ 150 mls/hr Q6H40M IV 05/17/19 10:00 06/15/19 09:59 05/17/19 10:00 Morphine Sulfate (Morphine Sulfate) 1 mg Q4H PRN IVP pain 1-3 05/17/19 13:00 05/24/19 12:59 Ondansetron HCl (Zofran) 4 mg Q6H PRN IVP Nausea & Vomiting 05/16/19 20:15 06/15/19 20:14 Thiamine HCl (Vitamin B1) 100 mg DAILY ORAL 05/18/19 09:00 06/17/19 08:59 Assessment/Plan Problem List: (1) Elevated bilirubin Assessment & Plan: Elevated T bili normal direct bili unlikely obstructive in nature No bleeding Pending hepatitis panel Trend labs ICD Codes: R17 - Unspecified jaundice SNOMED: 84678448 (2) Abdominal pain Assessment & Plan: Generalized abdominal pain 10 out of 10 Clinically mildly distended nontender may be some discomfort on palpation Afebrile hemodynamic stable CT scan reviewed as below No acute surgical intervention indicated N.p.o. IV fluids IV antibiotics Trend labs Pending labs/hepatic panel We will follow with recommendations Thank you for let me participate in patient's care ICD Codes: R10.9 - Unspecified abdominal pain SNOMED: 67745306 Qualifiers: Qualified Codes: R10.84 - Generalized abdominal pain (3) Acute pancreatitis Assessment & Plan: There is infiltration of the peripancreatic fat and slight indistinctness of the pancreatic margins, particularly in the region of the head and uncinate process. No discrete fluid collections are demonstrated. The pancreas enhances normally. Intrahepatic portal vein radicals and the hepatic veins enhance normally. However, the main portal vein, splenic vein, superior mesenteric vein demonstrate low-attenuation than would be expected with normal enhancement, although a higher in attenuation than would be expected if thrombosed. Also, collateral veins are seen surrounding the main portal vein suggestive of cavernous transformation The liver demonstrates diffuse mild hypoattenuation, consistent with fatty change. No focal abnormalities. The gallbladder is unremarkable. The spleen, adrenals, kidneys are unremarkable. No pelvic mass or adenopathy. The prostate is enlarged. The GI tract is well opacified. The distal esophagus, stomach, duodenum are unremarkable. There is no evidence of diverticulosis or diverticulitis. The appendix is normal. No small bowel distention or small bowel wall thickening. No free or loculated intraperitoneal gas or fluid. The included lung bases are clear. The bones are unremarkable except for degenerative changes of the lumbosacral junction.. Impression: Findings compatible with uncomplicated acute pancreatitis Unusual intermediate attenuation of the portal splenic veins and superior mesenteric vein. Attenuation is lower than expected normal enhancement but somewhat higher than would be expected in thrombosis. Possibly representing flow artifact, although the presence of periportal collaterals does suggest thrombosis. Recommend duplex sonography to confirm ICD Codes: K85.90 - Acute pancreatitis without necrosis or infection, unspecified SNOMED: 194687380 Qualifiers: Qualified Codes: K85.90 - Acute pancreatitis without necrosis or infection, unspecified Gómez Lyon May 17, 2019 15:17
--- NOTE | 2019-05-17 15:30 | Diagnostic Imaging Report ---
Indication: Abdominal pain. Pancreatitis Technique: Grayscale and duplex Doppler imaging of the abdomen performed. Comparison: None Findings: The liver is heterogeneous showing a coarsened echotexture and is overall increase in echogenicity consistent with fatty infiltration.. Doppler interrogation of the main portal vein shows patency with hepatopedal, monophasic flow. There is no biliary ductal dilatation identified. Gallbladder is unremarkable. CBD is 3.8 mm in diameter. There demonstrated part of the pancreas, aorta and IVC show no definite abnormalities. Both kidneys appear unremarkable. There is no hydronephrosis. IMPRESSION: Fatty liver. No evidence of biliary ductal dilatation.
--- NOTE | 2019-05-17 16:33 | NUR ---
NURSE NOTES: received call from Dr. Hopper and received order of Troponin stat, CPK stat, EKG stat. order read back and confirmed. order noted and carried out.
[2019-05-17 19:03] LABS: CREATINE KINASE 277 U/L (26-308)
--- NOTE | 2019-05-17 19:40 | NUR ---
HAND-OFF: Report given to LUIS ALBERTO Coley.
[2019-05-17 20:00] VITALS: BP 158/86
--- NOTE | 2019-05-17 20:07 | NUR ---
NURSE NOTES: Pt is in bed, awake and alert. No acute distress noted. Pt denies pain now; Dilaudid was given last shift as ordered PRN. Pt is NPO. Pt has family members by beside. Bed locked low in position,side rails up and kota light within reach. Pt will be monitored.
--- NOTE | 2019-05-17 22:00 | NUR ---
NURSE NOTES: Dr. Genao's exchange called left message with Oral regarding pt's EKG result.
[2019-05-18] VITALS (16 sets, daily range): BP systolic 105–159; BP diastolic 75–102
--- NOTE | 2019-05-18 02:45 | NUR ---
NURSE NOTES: Pt is complaining of increased abdominal pain, Dilaudid 2mg IVP given as ordered PRN, however is not relieving pain to a tolerable level. Abdomen is tender to touch. Pt also states that he is unable to have BM. Dr. Genao's exchange is called and message left with Oral to have doctor call back. Awaiting call back.
[2019-05-18 06:00] LABS: HEMATOCRIT 56.2 % (42.0-52.0); MEAN CORPUSCULAR VOLUME 94 FL (80-99); PLATELET COUNT 181 K/UL (150-450); RED BLOOD COUNT 6.01 M/UL (4.70-6.10); RED CELL DISTRIBUTION WIDTH 13.6 % (11.6-14.8)
[2019-05-18 06:09] LABS: HEMOGLOBIN 18.8 G/DL (14.2-18.0); WHITE BLOOD COUNT 23.2 K/UL (4.8-10.8)
[2019-05-18] MEDS: LR 1000ml 1,000 ML IV SCH ×4 (06:17→18:00)
[2019-05-18 06:27] LABS: INR 1.1 (0.9-1.1)
--- NOTE | 2019-05-18 06:45 | NUR ---
NURSE NOTES: Pt is complaining of increased abdominal pain. Abdomen is tender to touch. Pt had a bloody diarrhea. Lab called and informed that WBC is critically high 23.2 and HGB 18.8. Vitlas; Temp 99.4; BP 134/91; HR 121; O2 sat 98%; pain 10/10. Dr. Gonzalez, Dr. Lyon and Dr. Genao's office called. Dr. Gonzalez ordered STAT ABD CT scan. DR. Lyon ordered STAT lactic acid and NS 100L bolus.
[2019-05-18 06:50] LABS: ALANINE AMINOTRANSFERASE 27 U/L (12-78); ALBUMIN 2.8 G/DL (3.4-5.0); ALBUMIN/GLOBULIN RATIO 0.6 (1.0-2.7); ALKALINE PHOSPHATASE 76 U/L (46-116); AMYLASE 27 U/L (25-115); ANION GAP 9 mmol/L (5-15); ASPARTATE AMINO TRANSFERASE 23 U/L (15-37); BILIRUBIN,TOTAL 1.2 MG/DL (0.2-1.0); BLOOD UREA NITROGEN 11 mg/dL (7-18); CALCIUM 8.2 MG/DL (8.5-10.1); CARBON DIOXIDE 30 MMOL/L (21-32); CHLORIDE 104 MMOL/L (98-107); CHOLESTEROL 160 MG/DL (< 200); CREATININE 1.2 MG/DL (0.55-1.30); HDL CHOLESTEROL 76 MG/DL (40-60); POTASSIUM 3.7 MMOL/L (3.5-5.1); SODIUM 143 MMOL/L (136-145); TRIGLYCERIDES 62 MG/DL (30-150)
--- NOTE | 2019-05-18 06:50 | NUR ---
NURSE NOTES: [facility] called to do Stat CT and Lab called to Draw blood for lactic acid. Pt is now calm and responsive in bed.
[2019-05-18 06:52] LABS: BILIRUBIN,DIRECT 0.2 MG/DL (0.0-0.3)
--- NOTE | 2019-05-18 07:00 | NUR ---
NURSE NOTES: NS 1L bolus hanged. Pt is awake and calm.
--- NOTE | 2019-05-18 07:05 | NUR ---
HAND-OFF: Report given to LUIS ALBERTO Abreu. Updated Brady on pt's condition. Informed to monitor patient closely and call doctors if needed for further orders.
--- NOTE | 2019-05-18 07:42 | NUR ---
NURSE NOTES: received report from LUIS ALBERTO Coley. patient in bed. alert. oriented. verbally responsive. no respiratory distress on room air. pain on abd area. CT scan will be get done at 9am. oral contrast was delivered. getting volus IV. showed rectal bleeding. bed in the lowest position and locked. call light within reach. alarm on. will continue to provide plan of care.
--- NOTE | 2019-05-18 08:09 | General Progress Note ---
Assessment/Plan Problem List: (1) Acute pancreatitis ICD Codes: K85.90 - Acute pancreatitis without necrosis or infection, unspecified SNOMED: [id number] Qualifiers: Qualified Codes: K85.90 - Acute pancreatitis without necrosis or infection, unspecified (2) Fatty liver ICD Codes: K76.0 - Fatty (change of) liver, not elsewhere classified SNOMED: 329990368 (3) Elevated bilirubin ICD Codes: R17 - Unspecified jaundice SNOMED: 19390790 Status: stable Assessment/Plan: This is a 54-year-old male who presented with severe abdominal pain. His amylase and lipase are within normal limits however his CT abdomen pelvis demonstrated acute uncomplicated pancreatitis. He denies heavy alcohol use however admits that he was drinking more than usual during the holiday season. His LFTs are only remarkable for an elevated bilirubin of 1.8 with normal transaminases. On admission lactic acid is within normal limits at 1.7 which would go against bowel ischemia, however this morning this has increased to 3.8 and he has rectal bleeding. His abdominal ultrasound shows fatty liver. Unremarkable gallbladder and there is no biliary ductal dilatation. Doppler interrogation of the main portal vein shows patency with hepatopetal monophasic flow. 1. Acute pancreatitis. Possibly alcohol induced. This seems unlikely, given normal lipase, and transaminases. worried about bowel ischemia, elevated lactate , abdominal pain out of proportion to the exam, bloody diarrhea. 2. Fatty infiltration of the liver 3. Elevated bilirubin 1.8 4. Mild leukocytosis, likely reactive 5. Previous exposure to hepatitis B Plan MedSurg N.p.o. increase IVF rate to 200 ml/hr change pain medication regimen. Pain control with IV morphine 2mg every 3 hours for mild pain, IV Dilaudid 1 mg every 3 hours for moderate pain and 2 mg every 3 hours for severe pain GI consult Dr. Gonzalez, Surgical consult Dr. Lyon. d/w both this morning. Need to discuss anticoagulation Ruled out acute coronary syndrome, negative troponin, CPK, and EKG: NSR with sinus arrhythmia, no acute st-t changes lipid panel, hemoglobin A1c Monitor LFTs Monitor white count GI and DVT prophylaxis: Heparin subcutaneous I spent 40 minutes on this encounter. Greater than 50% spent on counseling and care coordination. I spent an additional 35 minutes in reviewing the outside records, labs, imaging and discussing with primary care provider and consultants. Case discussed at length with all consultants and patient's primary care provider . Time of note may not reflect time of encounter. Subjective Date patient seen: May 18, 2019 ROS Limited/Unobtainable: No Constitutional: Denies: no symptoms, chills, diaphoresis, fever, malaise, weakness, other HEENT: Denies: no symptoms, eye pain, blurred vision, tearing, double vision, ear pain, ear discharge, nose pain, nose congestion, throat pain, throat swelling, mouth pain, mouth swelling, other Cardiovascular: Denies: no symptoms, chest pain, edema, irregular heart rate, lightheadedness, palpitations, syncope, other Respiratory: Denies: no symptoms, cough, orthopnea, shortness of breath, SOB with excertion, SOB at rest, sputum, stridor, wheezing, other Gastrointestinal/Abdominal: Reports: abdomen distended, abdominal pain - 10/10 diffuse , blood in stool, diarrhea Genitourinary: Denies: no symptoms, burning, discharge, frequency, flank pain, hematuria, incontinence, pain, urgency, other Neurologic/Psychiatric: Denies: no symptoms, anxiety, depressed, emotional problems, headache, numbness, paresthesia, pre-existing deficit, seizure, tingling, tremors, weakness, other Endocrine: Denies: no symptoms, excessive sweating, flushing, intolerance to cold, intolerance to heat, increased hunger, increased thirst, increased urine, unexplained weight gain, unexplained weight loss, other Hematologic/Lymphatic: Denies: no symptoms, anemia, easy bleeding, easy bruising, other Allergies: Coded Allergies: No Known Allergies (Unverified , 05/16/19) Subjective seen and examined, continues to have 10/10 abdominal pain. Dilaudid only lasts for 2 hours. had blood in his stools last night, tmax 100.0, tachycardic to 120 , wbc up to 22, hemoglobin 18. D dimer very high at 32 mg/L FEU. lactic acid 3.8 (lab reports this to be hemolyzed). Very concerning for mesenteric ischemia. Repeat CT abdomen pelvis with iv/oral contrast is ordered. Objective Last 24 Hour Vital Signs Date Time Temp Pulse Resp B/P (MAP) Pulse Ox O2 Delivery O2 Flow Rate FiO2 05/18/19 05:00 99.4 120 18 134/91 (105) 98 05/18/19 00:00 98.8 98 18 159/94 (115) 99 05/17/19 21:00 Room Air 05/17/19 20:00 98.9 68 18 158/86 (110) 99 05/17/19 12:00 98.1 82 16 134/72 (92) 99 05/17/19 09:00 Room Air Intake and Output 05/17/19 05/18/19 19:00 07:00 Intake Total 1200 ml 1650 ml Output Total 1000 ml Balance 1200 ml 650 ml Intake IV Total 1200 ml 1650 ml Output Urine Total 600 ml Other 400 ml # Voids 3 # Bowel Movements 2 Laboratory Tests 05/17/19 09:45: Lactic Acid Level 1.70 05/17/19 17:40: Total Creatine Kinase 277, Troponin I 0.000 05/18/19 05:02: Troponin I 0.000, White Blood Count 23.2#*H, Red Blood Count 6.01, Hemoglobin 18.8*H, Hematocrit 56.2H, Mean Corpuscular Volume 94, Mean Corpuscular Hemoglobin 31.3H, Mean Corpuscular Hemoglobin Concent 33.5, Red Cell Distribution Width 13.6, Platelet Count 181, Mean Platelet Volume 5.4L, Neutrophils (%) (Auto) , Lymphocytes (%) (Auto) , Monocytes (%) (Auto) , Eosinophils (%) (Auto) , Basophils (%) (Auto) , Neutrophils % (Manual) [Pending] , Lymphocytes % (Manual) [Pending], Platelet Estimate [Pending], Platelet Morphology [Pending], Erythrocyte Sedimentation Rate 8, Prothrombin Time 11.8H, Prothromb Time International Ratio 1.1, Activated Partial Thromboplast Time 27, D-Dimer > 35.20H, Sodium Level 143, Potassium Level 3.7, Chloride Level 104, Carbon Dioxide Level 30, Anion Gap 9, Blood Urea Nitrogen 11, Creatinine 1.2, Estimat Glomerular Filtration Rate > 60, Glucose Level 161H, Hemoglobin A1c 5.6 , Calcium Level 8.2L, Total Bilirubin 1.2H, Direct Bilirubin 0.2, Aspartate Amino Transf (AST/SGOT) 23, Alanine Aminotransferase (ALT/SGPT) 27, Alkaline Phosphatase 76, C-Reactive Protein, Quantitative 32.2H, Total Protein 7.2, Albumin 2.8L, Globulin 4.4, Albumin/Globulin Ratio 0.6L, Triglycerides Level 62 , Cholesterol Level 160, LDL Cholesterol 61, HDL Cholesterol 76H, Cholesterol/ HDL Ratio 2.1L, Amylase Level 27, Lipase 81 05/18/19 07:30: Lactic Acid Level [Pending] Height (Feet): 5 Height (Inches): 7.00 Weight (Pounds): 170 Objective General Appearance: alert, severe distress - due to pain, able to ambulate to the bathroom Lines, tubes and drains: peripheral HEENT: normocephalic, atraumatic, anicteric, mucous membranes moist, PERRL, EOMI Neck: non-tender, supple Respiratory/Chest: chest wall non-tender, lungs clear, normal breath sounds, no respiratory distress, no accessory muscle use Cardiovascular/Chest: normal peripheral pulses, tachycardia, regular rhythm, no gallop/murmur, no JVD Abdomen: soft, tender - epigastric mainly, also diffuse. No guarding, no rebound Extremities: normal range of motion, no edema, no cyanosis Skin Exam: normal pigmentation, warm/dry Neurologic: no motor/sensory deficits, alert, oriented x 3, responsive Musculoskeletal: normal muscle bulk Amor Hopper M.D. May 18, 2019 08:09
[2019-05-18] MEDS ORDERED: Morphine Sulfate 2mg/ml Inj(IV/IM USE ONLY) IVP PRN ×2 (08:45→11:49)
[2019-05-18] MEDS ORDERED: HYDROmorphone 1mg/ml Carpuject IVP PRN (08:45)
[2019-05-18] MEDS: Heparin 5000 units/ml inj SUBQ SCH (08:56)
--- NOTE | 2019-05-18 08:57 | NUR ---
RADIOLOGY: PCXR COMPLETED 0840HRS. NF
--- NOTE | 2019-05-18 08:58 | NUR ---
RADIOLOGY: KUB PERFORMED, NOT CXR. NF
[2019-05-18] MEDS ORDERED: Thiamine 100mg tab ORAL SCH (09:00)
[2019-05-18] MEDS ORDERED: Nulytely 4L ORAL ONE (09:30)
--- NOTE | 2019-05-18 09:43 | NUR ---
NURSE NOTES: patient left for CT scan. IV intact. taken oral contrast. signed consent.
[2019-05-18] MEDS ORDERED: LR 1000ml 1,000 ML IV SCH (10:00)
--- NOTE | 2019-05-18 10:10 | NUR ---
NURSE NOTES: patient came back to unit after CT scan.
--- NOTE | 2019-05-18 10:35 | NUR ---
TRANSFER TO FLOOR: Patient transferred to Med Surg room 408-2, per Dr. Tirado. Report given to Brady To RN. Belongings given to Brady To RN. Patient remains room air. Addendum: 05/18/19 at 1106 by KENTON NAVA RN RN Incorrect documentation. Wrong Patient.
--- NOTE | 2019-05-18 10:47 | Diagnostic Imaging Report ---
Clinical Indication: Abdominal pain, acute pancreatitis Technique: Patient ingested oral contrast IV administration nonionic contrast. Venous phase spiral acquisition obtained through the abdomen and pelvis. Multiplanar reconstructions were generated. Total dose length product 1340 mGycm. CTDIvol(s) 20 mGy. Dose reduction achieved using automated exposure control Comparison: 05/16/2019 Findings: Again demonstrated is low attenuation of the main portal vein, the splenic vein, and the superior mesenteric vein, more striking currently than previously, with a fairly definite filling defect in the main superior mesenteric vein. Numerous venous collaterals are seen in the retroperitoneum as well as evidence of cavernous periportal collaterals . The celiac axis, superior mesenteric artery, and inferior mesenteric artery are all patent. There is interim development of severe wall edema involving the proximal jejunum. Benign pneumatosis. More distally, the jejunum is dilated but the wall is not thickened. There is gradual transition to normal caliber small bowel even farther distally. The appendix is normal. The colon is upper limits of normal in caliber proximally, filled with liquid contrast, no definite wall thickening. No evidence of diverticulosis or diverticulitis. Interim development of free intraperitoneal fluid, seen within the pelvis, the mesenteric root, bilateral paracolic gutters, and surrounding the liver. Previously demonstrated pancreatic edema and peripancreatic inflammatory changes are somewhat less striking than evident previously. There is normal enhancement of the pancreas. Normal caliber pancreatic duct. The gallbladder is filled with dense contents, probably excreted contrast The liver demonstrates diffuse and patchy hypoattenuation, consistent with fatty change. The spleen, adrenals, kidneys are unremarkable. No retroperitoneal or mesenteric mass or adenopathy. The prostate is enlarged. The bladder is unremarkable. No pelvic mass or adenopathy. Incompletely descended left testicle is noted. The bones are unremarkable. The included lung bases demonstrate atelectatic changes. 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 Presence of periportal and retroperitoneal collaterals suggests that this may be an acute on chronic process Severe wall edema of the proximal jejunum. Distal jejunal and ileal dilatation without wall thickening. Findings most likely represent enteritis secondary bowel ischemia secondary to the above Interim development of free intraperitoneal fluid, likely secondary to the above Pancreatitis changes are somewhat less striking than evident on the prior exam. No evidence of pancreatic necrosis Fatty liver Prostatomegaly Pulmonary critical dependent atelectatic changes Critical value findings phoned to Dr. Gonzalez at the time of interpretation The CT scanner at [facility] is accredited by the [employer] and the scans are performed using protocols designed to limit radiation exposure to as low as reasonably achievable to attain images of sufficient resolution adequate for diagnostic evaluation.
[2019-05-18] MEDS ORDERED: Heparin 25,000u/D5W 500ml 500 ML IV SCH ×4 (10:54→13:45)
[2019-05-18] MEDS ORDERED: Heparin 5000 units/ml inj IV SCH ×2 (11:00→11:47)
--- NOTE | 2019-05-18 11:14 | NUR ---
CASE MANAGEMENT:REVIEW SI;ACUTE PANCREATITIS, ELEVATED BILIRUBIN. RECTAL BLEEDING. 99.4 120 19 159/94 98% ON RA WBC 23.2 HGB 18.8 HCT 56.2 CA 8.2 T BILI 1.2 ALB 2.8 LACT ACID 5.10 IS;IV ZOFRAN Q6HRS PRN IV MORPHINE Q3HRS PRN IV DILAUDID Q3HRS PRN LACTATED RINGERS @ 200ML/HR IV HEPARIN Q24HRS MED SURG STATUS PLAN OF CARE; IVF NPO GI CONSULT DCP;TO HOME
--- NOTE | 2019-05-18 11:18 | NUR ---
RADIOLOGY DEPT., ABDOMEN X-RAY COMPLETED BY MAHESH
--- NOTE | 2019-05-18 11:28 | NUR ---
HAND-OFF: Report given to LUIS ALBERTO Queen,ICU.
--- NOTE | 2019-05-18 11:34 | GI Progress Note ---
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 - Acute infarction of intestine, part and extent unspecified SNOMED: 69252547 (2) Elevated bilirubin ICD Codes: R17 - Unspecified jaundice SNOMED: 81627646 (3) Abdominal pain ICD Codes: R10.9 - Unspecified abdominal pain SNOMED: 71783196 Qualifiers: Qualified Codes: R10.84 - Generalized abdominal pain (4) Acute pancreatitis ICD Codes: K85.90 - Acute pancreatitis without necrosis or infection, unspecified SNOMED: 038102351 Qualifiers: Qualified Codes: K85.90 - Acute pancreatitis without necrosis or infection, unspecified (5) Fatty liver ICD Codes: K76.0 - Fatty (change of) liver, not elsewhere classified SNOMED: 025613438 Status: not improved Status Narrative Discussed with Dr. Gnozalez. 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 - Severe wall edema of the proximal jejunum. Distal jejunal and ileal dilatation without wall thickening. Findings most likely represent enteritis secondary bowel ischemia secondary to the above - Pancreatitis changes are somewhat less striking than evident on the prior exam. No evidence of pancreatic necrosis Hx of ETOH usage fatty liver transfer to ICU start heparin gtt given findings will need EGD at some point to evaluate possible bowel ischemia maintain NPO + IVF pain mgmt ppi BID thiamine/folate/MVI will follow The patient was seen and examined at bedside and all new and available data was reviewed in the patients chart. I agree with the above findings, impression and plan. (Patient seen earlier today. Signature stamp does not reflect patient encounter time.). - Christopher Gonzalez MD Subjective Gastrointestinal/Abdominal: Reports: abdominal pain Objective Last 24 Hour Vital Signs Date Time Temp Pulse Resp B/P (MAP) Pulse Ox O2 Delivery O2 Flow Rate FiO2 05/18/19 09:00 Room Air 05/18/19 08:00 98.9 109 19 131/89 (103) 98 05/18/19 05:00 99.4 120 18 134/91 (105) 98 05/18/19 00:00 98.8 98 18 159/94 (115) 99 05/17/19 21:00 Room Air 05/17/19 20:00 98.9 68 18 158/86 (110) 99 05/17/19 12:00 98.1 82 16 134/72 (92) 99 Intake and Output 05/17/19 05/18/19 19:00 07:00 Intake Total 1200 ml 1650 ml Output Total 1000 ml Balance 1200 ml 650 ml Intake IV Total 1200 ml 1650 ml Output Urine Total 600 ml Other 400 ml # Voids 3 # Bowel Movements 2 Laboratory Tests Test 05/17/19 17:40 05/18/19 05:02 05/18/19 10:20 Total Creatine Kinase 277 U/L (26-308) Troponin I 0.000 ng/mL (0.000-0.056) 0.000 ng/mL (0.000-0.056) White Blood Count 23.2 K/UL (4.8-10.8) #*H Red Blood Count 6.01 M/UL (4.70-6.10) Hemoglobin 18.8 G/DL (14.2-18.0) *H Hematocrit 56.2 % (42.0-52.0) H Mean Corpuscular Volume 94 FL (80-99) Mean Corpuscular Hemoglobin 31.3 PG (27.0-31.0) H Mean Corpuscular Hemoglobin Concent 33.5 G/DL (32.0-36.0) Red Cell Distribution Width 13.6 % (11.6-14.8) Platelet Count 181 K/UL (150-450) Mean Platelet Volume 5.4 FL (6.5-10.1) L Neutrophils (%) (Auto) % (45.0-75.0) Lymphocytes (%) (Auto) % (20.0-45.0) Monocytes (%) (Auto) % (1.0-10.0) Eosinophils (%) (Auto) % (0.0-3.0) Basophils (%) (Auto) % (0.0-2.0) Differential Total Cells Counted 100 Neutrophils % (Manual) 87 % (45-75) H Lymphocytes % (Manual) 3 % (20-45) L Monocytes % (Manual) 10 % (1-10) Eosinophils % (Manual) 0 % (0-3) Basophils % (Manual) 0 % (0-2) Band Neutrophils 0 % (0-8) Platelet Estimate Adequate Platelet Morphology Normal Red Blood Cell Morphology Normal Polychromasia 1+ Erythrocyte Sedimentation Rate 8 MM/HR (0-20) Prothrombin Time 11.8 SEC (9.30-11.50) H Prothromb Time International Ratio 1.1 (0.9-1.1) Activated Partial Thromboplast Time 27 SEC (23-33) D-Dimer > 35.20 mg/L FEU Sodium Level 143 MMOL/L (136-145) Potassium Level 3.7 MMOL/L (3.5-5.1) Chloride Level 104 MMOL/L (98-107) Carbon Dioxide Level 30 MMOL/L (21-32) Anion Gap 9 mmol/L (5-15) Blood Urea Nitrogen 11 mg/dL (7-18) Creatinine 1.2 MG/DL (0.55-1.30) Estimat Glomerular Filtration Rate > 60 mL/min (>60) Glucose Level 161 MG/DL (74-106) H Hemoglobin A1c 5.6 % (4.3-6.0) Calcium Level 8.2 MG/DL (8.5-10.1) L Total Bilirubin 1.2 MG/DL (0.2-1.0) H Direct Bilirubin 0.2 MG/DL (0.0-0.3) Aspartate Amino Transf (AST/SGOT) 23 U/L (15-37) Alanine Aminotransferase (ALT/SGPT) 27 U/L (12-78) Alkaline Phosphatase 76 U/L (46-116) C-Reactive Protein, Quantitative 32.2 mg/dL (0.00-0.90) H Total Protein 7.2 G/DL (6.4-8.2) Albumin 2.8 G/DL (3.4-5.0) L Globulin 4.4 g/dL Albumin/Globulin Ratio 0.6 (1.0-2.7) L Triglycerides Level 62 MG/DL (30-150) Cholesterol Level 160 MG/DL (< 200) LDL Cholesterol 61 mg/dL (<100) HDL Cholesterol 76 MG/DL (40-60) H Cholesterol/HDL Ratio 2.1 (3.3-4.4) L Amylase Level 27 U/L (25-115) Lipase 81 U/L (73-393) Lactic Acid Level 5.10 mmol/L (0.4-2.0) H Height (Feet): 5 Height (Inches): 7.00 Weight (Pounds): 170 General Appearance: no apparent distress, alert Cardiovascular: normal rate Respiratory/Chest: normal breath sounds, no respiratory distress Abdominal Exam: normal bowel sounds, non tender, soft Extremities: normal range of motion, non-tender Destin Escobar NP May 18, 2019 11:34
[2019-05-18] MEDS ORDERED: Mylanta II UD 30ml ORAL PRN (11:49)
[2019-05-18] MEDS ORDERED: Heparin 1000 units/ml 1ml Vial IV ONE (12:00)
--- NOTE | 2019-05-18 12:02 | Diagnostic Imaging Report ---
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 No unusual calcifications or masses. Small amount of ingested bowel contrast is again demonstrated Impression: No acute process
--- NOTE | 2019-05-18 13:00 | NUR ---
NURSE NOTES: RECEIVED PT FROM MARLEN Moncada RN. TRANSFFERED TO 246-C PER DR. RODRÍGUEZ FOR MVT. A/OX4; AMBULATORY. RA. ABDOMEN DISTENDED, TENDER, ROUND. PAIN LUQ 10/10. ST ON CARE SPECIALIST; HR 125, T 98.2, BP 135/89, SPO2 100%. CONTINENT; USES URINAL. IV ON LFA 22G. PATENT AND ASYMPTOMATIC. CONNECTED TO MONITOR. WILL CONTINUE PLAN OF CARE.
--- NOTE | 2019-05-18 13:34 | Infectious Diseases Prog Note ---
Assessment/Plan Assessment/Plan Full consult dictated: A) 1) possible pancreatitis, portal/SMV/splenic vein thrombosis 2) leukocytosis 3) pmh noted 4) allergies P) 1) meropenem 2) supportive care 3) check cultures 4) d/w Dr. Hopper, d/w surgery - general and vascular 5) monitor labs Subjective Allergies: Coded Allergies: No Known Allergies (Unverified , 05/16/19) Objective Vital Signs Last 24 Hour Vital Signs Date Time Temp Pulse Resp B/P (MAP) Pulse Ox O2 Delivery O2 Flow Rate FiO2 05/18/19 12:23 129 05/18/19 12:20 98.9 05/18/19 12:00 98.9 135 28 125/84 (98) 98 05/18/19 11:30 126 26 145/102 (116) 98 05/18/19 09:00 Room Air 05/18/19 08:00 98.9 109 19 131/89 (103) 98 05/18/19 05:00 99.4 120 18 134/91 (105) 98 05/18/19 00:00 98.8 98 18 159/94 (115) 99 05/17/19 21:00 Room Air 05/17/19 20:00 98.9 68 18 158/86 (110) 99 Height (Feet): 5 Height (Inches): 7.00 Weight (Pounds): 170 Laboratory Tests Test 05/17/19 17:40 05/18/19 05:02 05/18/19 10:20 Total Creatine Kinase 277 U/L (26-308) Troponin I 0.000 ng/mL (0.000-0.056) 0.000 ng/mL (0.000-0.056) White Blood Count 23.2 K/UL (4.8-10.8) #*H Red Blood Count 6.01 M/UL (4.70-6.10) Hemoglobin 18.8 G/DL (14.2-18.0) *H Hematocrit 56.2 % (42.0-52.0) H Mean Corpuscular Volume 94 FL (80-99) Mean Corpuscular Hemoglobin 31.3 PG (27.0-31.0) H Mean Corpuscular Hemoglobin Concent 33.5 G/DL (32.0-36.0) Red Cell Distribution Width 13.6 % (11.6-14.8) Platelet Count 181 K/UL (150-450) Mean Platelet Volume 5.4 FL (6.5-10.1) L Neutrophils (%) (Auto) % (45.0-75.0) Lymphocytes (%) (Auto) % (20.0-45.0) Monocytes (%) (Auto) % (1.0-10.0) Eosinophils (%) (Auto) % (0.0-3.0) Basophils (%) (Auto) % (0.0-2.0) Differential Total Cells Counted 100 Neutrophils % (Manual) 87 % (45-75) H Lymphocytes % (Manual) 3 % (20-45) L Monocytes % (Manual) 10 % (1-10) Eosinophils % (Manual) 0 % (0-3) Basophils % (Manual) 0 % (0-2) Band Neutrophils 0 % (0-8) Platelet Estimate Adequate Platelet Morphology Normal Red Blood Cell Morphology Normal Polychromasia 1+ Erythrocyte Sedimentation Rate 8 MM/HR (0-20) Prothrombin Time 11.8 SEC (9.30-11.50) H Prothromb Time International Ratio 1.1 (0.9-1.1) Activated Partial Thromboplast Time 27 SEC (23-33) D-Dimer > 35.20 mg/L FEU Sodium Level 143 MMOL/L (136-145) Potassium Level 3.7 MMOL/L (3.5-5.1) Chloride Level 104 MMOL/L (98-107) Carbon Dioxide Level 30 MMOL/L (21-32) Anion Gap 9 mmol/L (5-15) Blood Urea Nitrogen 11 mg/dL (7-18) Creatinine 1.2 MG/DL (0.55-1.30) Estimat Glomerular Filtration Rate > 60 mL/min (>60) Glucose Level 161 MG/DL (74-106) H Hemoglobin A1c 5.6 % (4.3-6.0) Calcium Level 8.2 MG/DL (8.5-10.1) L Total Bilirubin 1.2 MG/DL (0.2-1.0) H Direct Bilirubin 0.2 MG/DL (0.0-0.3) Aspartate Amino Transf (AST/SGOT) 23 U/L (15-37) Alanine Aminotransferase (ALT/SGPT) 27 U/L (12-78) Alkaline Phosphatase 76 U/L (46-116) C-Reactive Protein, Quantitative 32.2 mg/dL (0.00-0.90) H Total Protein 7.2 G/DL (6.4-8.2) Albumin 2.8 G/DL (3.4-5.0) L Globulin 4.4 g/dL Albumin/Globulin Ratio 0.6 (1.0-2.7) L Triglycerides Level 62 MG/DL (30-150) Cholesterol Level 160 MG/DL (< 200) LDL Cholesterol 61 mg/dL (<100) HDL Cholesterol 76 MG/DL (40-60) H Cholesterol/HDL Ratio 2.1 (3.3-4.4) L Amylase Level 27 U/L (25-115) Lipase 81 U/L (73-393) Lactic Acid Level 5.10 mmol/L (0.4-2.0) H Current Medications Medications (Trade) Dose Ordered Sig/Tonie Route PRN Reason Start Time Stop Time Status Last Admin Dose Admin Acetaminophen (Tylenol) 650 mg Q4H PRN ORAL fever 05/18/19 11:49 06/17/19 11:48 Al Hydroxide/Mg Hydroxide (Mylanta II) 30 ml Q6H PRN ORAL dyspepsia 05/18/19 11:49 06/17/19 11:48 Dextrose (Dextrose 50%) 25 ml Q30M PRN IV Hypoglycemia 05/18/19 11:45 06/15/19 20:14 Dextrose (Dextrose 50%) 50 ml Q30M PRN IV Hypoglycemia 05/18/19 11:45 06/15/19 20:14 Diphenhydramine HCl (Benadryl) 25 mg Q6H PRN ORAL Itching/Pruritis 05/18/19 11:49 06/17/19 11:48 Folic Acid (Folate) 1 mg DAILY ORAL 05/19/19 09:00 06/17/19 08:59 Heparin Sodium (Porcine) (Heparin 5000 units/ml) 6,500 units ONCE IV 05/18/19 11:47 05/18/19 14:00 05/18/19 12:26 Heparin Sodium/ Dextrose 500 ml @ 28.8 mls/hr Q24H IV 05/18/19 11:47 06/17/19 11:46 05/18/19 12:25 Hydromorphone HCl (Dilaudid) 1 mg Q3H PRN IVP For Pain 4-6 05/18/19 11:44 05/25/19 11:43 Hydromorphone HCl (Dilaudid) 2 mg Q3H PRN IVP Severe Pain (Pain Scale 7-10) 05/18/19 11:44 05/25/19 11:43 05/18/19 11:50 Lactated Ringer's 1,000 ml @ 200 mls/hr Q5H IV 05/18/19 11:48 06/17/19 11:47 05/18/19 12:30 Morphine Sulfate (Morphine Sulfate) 1 mg Q3H PRN IVP pain 1-3 05/18/19 11:49 05/25/19 11:48 Ondansetron HCl (Zofran) 4 mg Q6H PRN IVP Nausea & Vomiting 05/18/19 11:49 06/17/19 11:48 Pantoprazole (Protonix) 40 mg EVERY 12 HOURS IVP 05/18/19 21:00 06/17/19 20:59 Thiamine HCl (Vitamin B1) 100 mg DAILY ORAL 05/19/19 09:00 06/17/19 08:59 Keith Hines MD May 18, 2019 13:34
--- NOTE | 2019-05-18 14:16 | General Progress Note ---
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 extensive venous clots - Severe wall edema of the proximal jejunum. Distal jejunal and ileal dilatation without wall thickening. Findings most likely represent enteritis secondary bowel ischemia secondary to the above - Pancreatitis changes are somewhat less striking than evident on the prior exam. No evidence of pancreatic necrosis GI follow up Patient transferred to ICU, started on heparin drip, continued IVF. Dr. Messer from vascular surgery consulted. ID consulted for broad spectrum antibiotics. Hematology for hypercoagulable work up patient reports today that he has been using testosterone injections for 3-4 years now. Repeat lactate, cbc and cmp continue heparin drip ptt goal 60-90 plan of care discussed with patient, sister, friend at bedside. ICU nursing staff and consultants. discussed findings with patient's pcp . Code status: full code I spent 75 minutes on this patient's case, and 40 mins was dedicated to critical care Critical Care Services performed include: Telemetry Review Hemodynamic measurement interpretation Laboratory data review and interpretation Radiology image review and interpretation Interpretation of ABG's Discussion of patient's care with ICU team, ICU Nursing staff and/or consulting services Amor Hopper M.D. May 18, 2019 14:16
--- NOTE | 2019-05-18 14:43 | Diagnostic Imaging Report ---
Indication: Pain Technique: Grayscale and duplex images of the bilateral lower extremity veins Comparison: none Findings: Bilaterally, grayscale and duplex images demonstrate no evidence of intraluminal thrombus. Normal phasic Doppler waveforms, demonstrating normal augmentation response and no evidence of valvular insufficiency. Normal compressibility Impression: Negative for lower extremity deep venous thrombosis
--- NOTE | 2019-05-18 14:43 | General Progress Note ---
Progress Note Progress Note Parient seen and examined Abdominal pain for 9 days Hx of alcohol use and hormone testosterone injections No prior clots or fhx of clots Hemodynamic stable Abdominal epigastric tenderness Feet warm with intact pulses and no edema CT with pancreatitis & SMV portal vein clots with intact arterial flow, patent SMA YANNI celiac artery wcb 11K and normal renal functions Likely hypercoagulable vs infectious etiology Rec Therapeutic anticoagulation Abx per ID Abdominal u/s IV fluid hydration General surgery & hematology eval d/w pt/sister & icu staff d/w pmd & consultants Milton Messer MD May 18, 2019 14:43
--- NOTE | 2019-05-18 15:19 | NUR ---
NURSE NOTES: NAUSEA AND VOMITING NOTED. ORANGE, UNDIGESTED FOOD NOTED IN EMESIS. HIGH KINGSLEY'S POSITION. ZOFRAN GIVEN PER ORDER.
--- NOTE | 2019-05-18 16:24 | NUR ---
TRANSFER INQUIRY CALL MADE TO [facility] AT [phone] - AUTOMATED VOICE INQUIRY COMPLETED FACE SHEET FAXED TO [phone] @ 1610 PM WILL FOLLOW UP. CALL MADE TO [facility] AT [phone] JARRED YANES, CURRENTLY NOT ACCEPTING PATIENTS AT THIS TIME DUE TO FACILITY BEING AT MAXIMUM CAPACITY
--- NOTE | 2019-05-18 16:43 | Diagnostic Imaging Report ---
Indication: Shortness of breath Technique: One view of the chest Comparison: none Findings: Inspiration is suboptimal. Lungs and pleural spaces are clear. The heart size is normal Impression: No acute process
--- NOTE | 2019-05-18 17:40 | NUR ---
CASE MANAGEMENT:CALL RECEIVED CALL RECEIVED FROM ASHU AT [facility] TO REQUEST CLINICALS CLINICALS FAXED TO [phone] WILL FOLLOW UP
[2019-05-18 17:43] LABS: HEMATOCRIT 49.7 % (42.0-52.0); MEAN CORPUSCULAR VOLUME 91 FL (80-99); PLATELET COUNT 155 K/UL (150-450); RED BLOOD COUNT 5.45 M/UL (4.70-6.10); RED CELL DISTRIBUTION WIDTH 11.7 % (11.6-14.8)
[2019-05-18 17:46] LABS: WHITE BLOOD COUNT 30.2 K/UL (4.8-10.8)
--- NOTE | 2019-05-18 17:51 | Surgery Progress Note ---
Surgery Progress Note Subjective Additional Comments Patient seen examined bedside. Acute deterioration last night. Began to have bloody bowel movements with the first time. States pain increasing since last night as well again. Was doing well during the day yesterday but acute deterioration last night without any significant recent changes. Repeat CT scan ordered and identified as below. Patient now in the ICU on heparin drip. Vascular input appreciated. Discussed with family and multidisciplinary team. Currently states pain is controlled but still there. No nausea or vomiting. Has been having loose bloody mucus bowel movements. Complaining of epigastric discomfort. Objective Last 24 Hour Vital Signs Date Time Temp Pulse Resp B/P (MAP) Pulse Ox O2 Delivery O2 Flow Rate FiO2 05/18/19 17:30 98.9 05/18/19 15:00 125 26 123/99 (107) 97 05/18/19 14:00 128 26 125/98 (107) 97 05/18/19 13:00 136 26 127/92 (104) 98 05/18/19 12:23 129 05/18/19 12:00 98.9 135 28 125/84 (98) 98 05/18/19 11:30 126 26 145/102 (116) 98 05/18/19 09:00 Room Air 05/18/19 08:00 98.9 109 19 131/89 (103) 98 05/18/19 05:00 99.4 120 18 134/91 (105) 98 05/18/19 00:00 98.8 98 18 159/94 (115) 99 05/17/19 21:00 Room Air 05/17/19 20:00 98.9 68 18 158/86 (110) 99 I&O Intake and Output 05/17/19 05/18/19 19:00 07:00 Intake Total 1200 ml 1650 ml Output Total 1000 ml Balance 1200 ml 650 ml Intake IV Total 1200 ml 1650 ml Output Urine Total 600 ml Other 400 ml # Voids 3 # Bowel Movements 2 Cardiovascular: RSR Respiratory: clear Abdomen: soft, distended, tenderness, decreased bowel sounds Extremities: no edema, no tenderness, no cyanosis Laboratory Tests Test 05/18/19 05:02 05/18/19 10:20 05/18/19 17:30 White Blood Count 23.2 K/UL (4.8-10.8) #*H 30.2 K/UL (4.8-10.8) *H Red Blood Count 6.01 M/UL (4.70-6.10) 5.45 M/UL (4.70-6.10) Hemoglobin 18.8 G/DL (14.2-18.0) *H 17.0 G/DL (14.2-18.0) Hematocrit 56.2 % (42.0-52.0) H 49.7 % (42.0-52.0) Mean Corpuscular Volume 94 FL (80-99) 91 FL (80-99) Mean Corpuscular Hemoglobin 31.3 PG (27.0-31.0) H 31.2 PG (27.0-31.0) H Mean Corpuscular Hemoglobin Concent 33.5 G/DL (32.0-36.0) 34.3 G/DL (32.0-36.0) Red Cell Distribution Width 13.6 % (11.6-14.8) 11.7 % (11.6-14.8) Platelet Count 181 K/UL (150-450) 155 K/UL (150-450) Mean Platelet Volume 5.4 FL (6.5-10.1) L 7.3 FL (6.5-10.1) Neutrophils (%) (Auto) % (45.0-75.0) % (45.0-75.0) Lymphocytes (%) (Auto) % (20.0-45.0) % (20.0-45.0) Monocytes (%) (Auto) % (1.0-10.0) % (1.0-10.0) Eosinophils (%) (Auto) % (0.0-3.0) % (0.0-3.0) Basophils (%) (Auto) % (0.0-2.0) % (0.0-2.0) Differential Total Cells Counted 100 Neutrophils % (Manual) 87 % (45-75) H Pending Lymphocytes % (Manual) 3 % (20-45) L Pending Monocytes % (Manual) 10 % (1-10) Eosinophils % (Manual) 0 % (0-3) Basophils % (Manual) 0 % (0-2) Band Neutrophils 0 % (0-8) Platelet Estimate Adequate Pending Platelet Morphology Normal Pending Red Blood Cell Morphology Normal Polychromasia 1+ Erythrocyte Sedimentation Rate 8 MM/HR (0-20) Prothrombin Time 11.8 SEC (9.30-11.50) H Prothromb Time International Ratio 1.1 (0.9-1.1) Activated Partial Thromboplast Time 27 SEC (23-33) Pending D-Dimer > 35.20 mg/L FEU Sodium Level 143 MMOL/L (136-145) Pending Potassium Level 3.7 MMOL/L (3.5-5.1) Pending Chloride Level 104 MMOL/L (98-107) Pending Carbon Dioxide Level 30 MMOL/L (21-32) Pending Anion Gap 9 mmol/L (5-15) Blood Urea Nitrogen 11 mg/dL (7-18) Pending Creatinine 1.2 MG/DL (0.55-1.30) Pending Estimat Glomerular Filtration Rate > 60 mL/min (>60) Pending Glucose Level 161 MG/DL (74-106) H Pending Hemoglobin A1c 5.6 % (4.3-6.0) Calcium Level 8.2 MG/DL (8.5-10.1) L Pending Total Bilirubin 1.2 MG/DL (0.2-1.0) H Pending Direct Bilirubin 0.2 MG/DL (0.0-0.3) Aspartate Amino Transf (AST/SGOT) 23 U/L (15-37) Pending Alanine Aminotransferase (ALT/SGPT) 27 U/L (12-78) Pending Alkaline Phosphatase 76 U/L (46-116) Pending Troponin I 0.000 ng/mL (0.000-0.056) C-Reactive Protein, Quantitative 32.2 mg/dL (0.00-0.90) H Total Protein 7.2 G/DL (6.4-8.2) Pending Albumin 2.8 G/DL (3.4-5.0) L Pending Globulin 4.4 g/dL Pending Albumin/Globulin Ratio 0.6 (1.0-2.7) L Triglycerides Level 62 MG/DL (30-150) Cholesterol Level 160 MG/DL (< 200) LDL Cholesterol 61 mg/dL (<100) HDL Cholesterol 76 MG/DL (40-60) H Cholesterol/HDL Ratio 2.1 (3.3-4.4) L Amylase Level 27 U/L (25-115) Lipase 81 U/L (73-393) Lactic Acid Level 5.10 mmol/L (0.4-2.0) H Pending Prostate Specific Antigen Pending Plan Problems: (1) Elevated bilirubin Assessment & Plan: Elevated T bili normal direct bili unlikely obstructive in nature No bleeding -initially but now noted to have bleeding last night and a stool. Likely etiology Pending hepatitis panel -reviewed prior from outpatient setting discussed with PCP and primary Trend labs (2) Abdominal pain Assessment & Plan: Generalized abdominal pain 10 out of 10 Clinically mildly distended nontender may be some discomfort on palpation Afebrile hemodynamic stable CT scan reviewed as below No acute surgical intervention indicated N.p.o. IV fluids IV antibiotics Trend labs Acute deterioration last night. 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 Arteries not obstructed with good inflow. Bowel edema noted distended tender bloody bowel movements Continue heparin drip Will follow with serial abdominal exams Discussed with PCP family patient and medical teams We will follow with recommendations Thank you for let me participate in patient's care (3) Acute pancreatitis Assessment & Plan: There is infiltration of the peripancreatic fat and slight indistinctness of the pancreatic margins, particularly in the region of the head and uncinate process. No discrete fluid collections are demonstrated. The pancreas enhances normally. Intrahepatic portal vein radicals and the hepatic veins enhance normally. However, the main portal vein, splenic vein, superior mesenteric vein demonstrate low-attenuation than would be expected with normal enhancement, although a higher in attenuation than would be expected if thrombosed. Also, collateral veins are seen surrounding the main portal vein suggestive of cavernous transformation The liver demonstrates diffuse mild hypoattenuation, consistent with fatty change. No focal abnormalities. The gallbladder is unremarkable. The spleen, adrenals, kidneys are unremarkable. No pelvic mass or adenopathy. The prostate is enlarged. The GI tract is well opacified. The distal esophagus, stomach, duodenum are unremarkable. There is no evidence of diverticulosis or diverticulitis. The appendix is normal. No small bowel distention or small bowel wall thickening. No free or loculated intraperitoneal gas or fluid. The included lung bases are clear. The bones are unremarkable except for degenerative changes of the lumbosacral junction.. Impression: Findings compatible with uncomplicated acute pancreatitis Unusual intermediate attenuation of the portal splenic veins and superior mesenteric vein. Attenuation is lower than expected normal enhancement but somewhat higher than would be expected in thrombosis. Possibly representing flow artifact, although the presence of periportal collaterals does suggest thrombosis. Recommend duplex sonography to confirm Again demonstrated is low attenuation of the main portal vein, the splenic vein, and the superior mesenteric vein, more striking currently than previously , with a fairly definite filling defect in the main superior mesenteric vein. Numerous venous collaterals are seen in the retroperitoneum as well as evidence of cavernous periportal collaterals . The celiac axis, superior mesenteric artery, and inferior mesenteric artery are all patent. There is interim development of severe wall edema involving the proximal jejunum. Benign pneumatosis. More distally, the jejunum is dilated but the wall is not thickened. There is gradual transition to normal caliber small bowel even farther distally. The appendix is normal. The colon is upper limits of normal in caliber proximally, filled with liquid contrast, no definite wall thickening. No evidence of diverticulosis or diverticulitis. Interim development of free intraperitoneal fluid, seen within the pelvis, the mesenteric root, bilateral paracolic gutters, and surrounding the liver. Previously demonstrated pancreatic edema and peripancreatic inflammatory changes are somewhat less striking than evident previously. There is normal enhancement of the pancreas. Normal caliber pancreatic duct. The gallbladder is filled with dense contents, probably excreted contrast The liver demonstrates diffuse and patchy hypoattenuation, consistent with fatty change. The spleen, adrenals, kidneys are unremarkable. No retroperitoneal or mesenteric mass or adenopathy. The prostate is enlarged. The bladder is unremarkable. No pelvic mass or adenopathy. Incompletely descended left testicle is noted. The bones are unremarkable. The included lung bases demonstrate atelectatic changes. 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 Presence of periportal and retroperitoneal collaterals suggests that this may be an acute on chronic process Severe wall edema of the proximal jejunum. Distal jejunal and ileal dilatation without wall thickening. Findings most likely represent enteritis secondary bowel ischemia secondary to the above Interim development of free intraperitoneal fluid, likely secondary to the above Pancreatitis changes are somewhat less striking than evident on the prior exam. No evidence of pancreatic necrosis Fatty liver Prostatomegaly Pulmonary critical dependent atelectatic changes Gómez Lyon May 18, 2019 17:51
--- NOTE | 2019-05-18 18:00 | NUR ---
NURSE NOTES: HEPARIN DRIP STOPPED FOR 30 MINS PER PROTOCOL. PAIN REASSESSMENT LEVEL 2/10, DILAUDID GIVEN. PATIENT'S HR REMAINS TACHYCARDIC, MD AWARE. HR 146. RESTING IN BED WITH EYES CLOSED. FAMILY AT BEDSIDE.
[2019-05-18 18:10] LABS: ALANINE AMINOTRANSFERASE 21 U/L (12-78); ALBUMIN 2.2 G/DL (3.4-5.0); ALBUMIN/GLOBULIN RATIO 0.6 (1.0-2.7); ALKALINE PHOSPHATASE 67 U/L (46-116); ANION GAP 11 mmol/L (5-15); ASPARTATE AMINO TRANSFERASE 19 U/L (15-37); BLOOD UREA NITROGEN 17 mg/dL (7-18); CALCIUM 7.8 MG/DL (8.5-10.1); CARBON DIOXIDE 24 MMOL/L (21-32); CHLORIDE 108 MMOL/L (98-107); CREATININE 1.5 MG/DL (0.55-1.30); POTASSIUM 4.8 MMOL/L (3.5-5.1); SODIUM 143 MMOL/L (136-145)
[2019-05-18] MEDS: Heparin 25,000u/D5W 500ml 500 ML IV SCH (18:37)
--- NOTE | 2019-05-18 19:15 | NUR ---
HAND-OFF: Report given to LUIS ALBERTO Cohen.
--- NOTE | 2019-05-18 19:20 | NUR ---
NURSE NOTES: Received patient from Damon Islas RN. patient is observed resting in bed, eyes open, AO X4. no s/sx of pain noted at this time. patient is on 2 L O2 via NC, tolerating well, saturating at 97%, no s/sx of respiratory distress noted. 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 pt is currently NPO. RH 22 g IV site is patent and intact, running LR at 200 cc/hr. LAC 20 g IV site is patent and intact, running Heparin drip at 15 units/kg/hr. bed in lowest position and locked, siderails up X2, call light within reach. family at bedside. will continue to monitor. Addendum: 05/18/19 at 2313 by MARIA VICTORIA PARSON RN RN heart rate of 135. no acute cardiac distress noted at this time.
--- NOTE | 2019-05-18 20:30 | NUR ---
NURSE NOTES: clear lung sounds upon auscultation. peripheral pulses present and bounding upon palpation. abdomen distended and tender to touch. hypoactive bowel sounds heard upon auscultation in X4 quadrants. pt c/o nausea. basin at bedside. will continue to monitor.
[2019-05-18] MEDS ORDERED: Pantoprazole Inj IVP SCH (21:00)
[2019-05-18] MEDS: Pantoprazole Inj IVP SCH (21:09)
--- NOTE | 2019-05-18 22:30 | NUR ---
NURSE NOTES: all due meds given. pt c/o pain, dilaudid given as per physician order. pt assisted to restroom. collected and sent to lab OB stool and urine for UA. noted rectal bleeding and hematuria. pt assisted back to bed. bed in lowest position and locked, siderails up X2, call light within reach. will continue to monitor.
[2019-05-18 23:43] LABS: APPEARANCE,URINE CLEAR; BILIRUBIN, URINE NEGATIVE (NEGATIVE); GLUCOSE, URINE (UA) NEGATIVE (NEGATIVE); KETONES,URINE 3+ (NEGATIVE); LEUKOCYTE ESTERASE ,URINE 1+ (NEGATIVE); NITRITE,URINE NEGATIVE (NEGATIVE); PH,URINE 5 (4.5-8.0); PROTEIN,URINE 2+ (NEGATIVE); UROBILINOGEN,URINE 1 MG/DL (0.0-1.0)
[2019-05-19] VITALS (24 sets, daily range): BP systolic 99–160; BP diastolic 52–101
[2019-05-19 00:14] LABS: COLOR,URINE YELLOW
--- NOTE | 2019-05-19 00:20 | NUR ---
NURSE NOTES: patient is sleeping in bed. no s/sx of pain/discomfort at this time. family at bedside. heparin drip and LR continue to run at prescribed rates. will continue to monitor.
--- NOTE | 2019-05-19 02:15 | NUR ---
NURSE NOTES: heparin drip remains at current rate of 15 units/kg/hr as per protocol. patient c/o pain in abdomen. will administer pain med as prescribed. will continue to monitor.
[2019-05-19] MEDS: LR 1000ml 1,000 ML IV SCH ×5 (02:16→23:29)
--- NOTE | 2019-05-19 04:00 | NUR ---
NURSE NOTES: ice packs applied to patient d/t temp of 99.6. family remains at bedside. will continue to monitor.
--- NOTE | 2019-05-19 05:55 | Consultation ---
History of Present Illness General Chief Complaint: Abdominal Pain Present Illness Allergies: Coded Allergies: No Known Allergies (Unverified , 05/16/19) Medication History Scheduled Ciprofloxacin Hcl (Ciprofloxacin Hcl*), 500 MG ORAL DAILY, (Reported) Famotidine* (Pepcid 20mg tablet*), 20 MG ORAL TWICE A DAY, (Reported) Metronidazole* (Flagyl*), 500 MG ORAL THREE TIMES A DAY, (Reported) Scheduled PRN Ondansetron Odt* (Zofran Odt*), 4 MG ORAL Q6H PRN for Nausea & Vomiting, ( Reported) Patient History Healthcare decision maker Resuscitation status Full Code Advanced Directive on File Physical Exam Last 24 Hour Vital Signs Date Time Temp Pulse Resp B/P (MAP) Pulse Ox O2 Delivery O2 Flow Rate FiO2 05/19/19 00:00 123 05/18/19 23:00 127 17 105/75 (85) 97 05/18/19 22:00 138 20 116/83 (94) 97 05/18/19 21:00 Nasal Cannula 2.0 05/18/19 21:00 133 21 109/83 (92) 97 05/18/19 20:00 98.9 138 21 112/84 (93) 97 05/18/19 20:00 138 05/18/19 19:00 138 19 112/93 (99) 97 05/18/19 18:00 146 26 133/85 (101) 97 05/18/19 17:30 98.9 05/18/19 17:00 144 26 132/86 (101) 97 05/18/19 16:00 98.2 137 24 130/85 (100) 94 05/18/19 15:00 125 26 123/99 (107) 97 05/18/19 14:00 128 26 125/98 (107) 97 05/18/19 13:00 136 26 127/92 (104) 98 05/18/19 12:23 129 05/18/19 12:00 98.9 135 28 125/84 (98) 98 05/18/19 11:30 126 26 145/102 (116) 98 05/18/19 09:00 Room Air 05/18/19 08:00 98.9 109 19 131/89 (103) 98 Intake and Output 05/18/19 05/19/19 19:00 07:00 Intake Total 1397.68 ml 1040.597 ml Balance 1397.68 ml 1040.597 ml Intake IV Total 1397.68 ml 1040.597 ml Laboratory Tests Test 05/18/19 10:20 05/18/19 17:30 05/18/19 20:10 05/18/19 21:30 Lactic Acid Level 5.10 mmol/L (0.4-2.0) H 3.90 mmol/L (0.4-2.0) H 3.70 mmol/L (0.66-2.22) H White Blood Count 30.2 K/UL (4.8-10.8) *H Red Blood Count 5.45 M/UL (4.70-6.10) Hemoglobin 17.0 G/DL (14.2-18.0) Hematocrit 49.7 % (42.0-52.0) Mean Corpuscular Volume 91 FL (80-99) Mean Corpuscular Hemoglobin 31.2 PG (27.0-31.0) H Mean Corpuscular Hemoglobin Concent 34.3 G/DL (32.0-36.0) Red Cell Distribution Width 11.7 % (11.6-14.8) Platelet Count 155 K/UL (150-450) Mean Platelet Volume 7.3 FL (6.5-10.1) Neutrophils (%) (Auto) % (45.0-75.0) Lymphocytes (%) (Auto) % (20.0-45.0) Monocytes (%) (Auto) % (1.0-10.0) Eosinophils (%) (Auto) % (0.0-3.0) Basophils (%) (Auto) % (0.0-2.0) Differential Total Cells Counted 100 Neutrophils % (Manual) 93 % (45-75) H Lymphocytes % (Manual) 1 % (20-45) L Monocytes % (Manual) 4 % (1-10) Eosinophils % (Manual) 0 % (0-3) Basophils % (Manual) 0 % (0-2) Band Neutrophils 2 % (0-8) Platelet Estimate Adequate Platelet Morphology Normal Red Blood Cell Morphology Normal Activated Partial Thromboplast Time 111 SEC (23-33) H Sodium Level 143 MMOL/L (136-145) Potassium Level 4.8 MMOL/L (3.5-5.1) Chloride Level 108 MMOL/L (98-107) H Carbon Dioxide Level 24 MMOL/L (21-32) Anion Gap 11 mmol/L (5-15) Blood Urea Nitrogen 17 mg/dL (7-18) Creatinine 1.5 MG/DL (0.55-1.30) H Estimat Glomerular Filtration Rate 49.0 mL/min (>60) Glucose Level 185 MG/DL (74-106) H Calcium Level 7.8 MG/DL (8.5-10.1) L Total Bilirubin 1.0 MG/DL (0.2-1.0) Aspartate Amino Transf (AST/SGOT) 19 U/L (15-37) Alanine Aminotransferase (ALT/SGPT) 21 U/L (12-78) Alkaline Phosphatase 67 U/L (46-116) Total Protein 6.2 G/DL (6.4-8.2) L Albumin 2.2 G/DL (3.4-5.0) L Globulin 4.0 g/dL Albumin/Globulin Ratio 0.6 (1.0-2.7) L Prostate Specific Antigen 1.84 ng/mL (0.13-4.0) Urine Color Yellow Urine Appearance Clear Urine pH 5 (4.5-8.0) Urine Specific [place] 1.015 (1.005-1.035) Urine Protein 2+ (NEGATIVE) H Urine Glucose (UA) Negative (NEGATIVE) Urine Ketones 3+ (NEGATIVE) H Urine Blood 2+ (NEGATIVE) H Urine Nitrite Negative (NEGATIVE) Urine Bilirubin Negative (NEGATIVE) Urine Urobilinogen 1 MG/DL (0.0-1.0) H Urine Leukocyte Esterase 1+ (NEGATIVE) H Urine RBC 0-2 /HPF (0 - 0) H Urine WBC 0-2 /HPF (0 - 0) Urine Squamous Epithelial Cells None /LPF (NONE/OCC) Urine Bacteria Few /HPF (NONE) Stool Occult Blood Pending Test 05/19/19 00:30 Activated Partial Thromboplast Time 72 SEC (23-33) H Height (Feet): 5 Height (Inches): 7.00 Weight (Pounds): 170 Medications Current Medications Medications (Trade) Dose Ordered Sig/Tonie Route PRN Reason Start Time Stop Time Status Last Admin Dose Admin Acetaminophen (Tylenol) 650 mg Q4H PRN ORAL fever 05/18/19 11:49 06/17/19 11:48 Dextrose (Dextrose 50%) 25 ml Q30M PRN IV Hypoglycemia 05/18/19 11:45 06/15/19 20:14 Dextrose (Dextrose 50%) 50 ml Q30M PRN IV Hypoglycemia 05/18/19 11:45 06/15/19 20:14 Diphenhydramine HCl (Benadryl) 25 mg Q6H PRN ORAL Itching/Pruritis 05/18/19 11:49 06/17/19 11:48 Heparin Sodium/ Dextrose 500 ml @ 23.133 mls/ hr ADJUST PER PROTOCOL IV 05/18/19 18:40 06/17/19 18:39 05/18/19 18:37 Hydromorphone HCl (Dilaudid) 1 mg Q3H PRN IVP For Pain 4-6 05/18/19 11:44 05/25/19 11:43 Hydromorphone HCl (Dilaudid) 2 mg Q3H PRN IVP Severe Pain (Pain Scale 7-10) 05/18/19 11:44 05/25/19 11:43 05/19/19 02:15 Lactated Ringer's 1,000 ml @ 200 mls/hr Q5H IV 05/18/19 11:48 06/17/19 11:47 05/19/19 02:16 Meropenem 1 gm/ Sodium Chloride 100 ml @ 200 mls/hr Q8HR IVPB 05/18/19 15:00 05/23/19 14:59 05/18/19 21:47 Morphine Sulfate (Morphine Sulfate) 1 mg Q3H PRN IVP pain 1-3 05/18/19 11:49 05/25/19 11:48 Ondansetron HCl (Zofran) 4 mg Q6H PRN IVP Nausea & Vomiting 05/18/19 11:49 06/17/19 11:48 05/19/19 02:14 Pantoprazole (Protonix) 40 mg EVERY 12 HOURS IVP 05/18/19 21:00 06/17/19 20:59 05/18/19 21:09 Assessment/Plan Assessment/Plan: Hematology Consultation REQ : Ward Chinchilla RFC: Portal vein, splenic vein, superior mesenteric vein, more striking than on prior exam of 05/16/2019 and 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 DOS: 05/19/2019 ID 54-year-old very pleasant male with no significant past medical history who presents to the emergency department at [facility] complaining of worsening abdominal pain. Patient states that pain began initially around May 08, 2019 and has persisted since intermittently getting worse. Has been followed by his primary care physician on outpatient setting with extensive work-up but no definitive etiology found yet. Patient states pain was recently worsening came to emergency room for evaluation. Intermittent nausea and emesis nonbloody. Passing flatus and normal bowel movements. States had been drinking prior but has not been currently. On admission noted to have slight leukocytosis and elevated T bili. CT scan as below.Patient seen , patient evaluated, chart reviewed. States pain cramping generalized abdominal pain. Currently 6 out of 10 since given pain medication but 10 out of 10 without. radiation to the back Now is in the icu, has been started on heparin gtt due to SMV, splenic vein and portal vein thrombosis, have reviewed ct scan as well, nay Cohen the rn, and have ordered a hypercoag panel. 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 [employer] Medications: Scheduled Ciprofloxacin Hcl (Ciprofloxacin Hcl*), 500 MG ORAL DAILY, (Reported) Famotidine* (Pepcid 20mg tablet*), 20 MG ORAL TWICE A DAY, (Reported) Metronidazole* (Flagyl*), 500 MG ORAL THREE TIMES A DAY, (Reported) Scheduled PRN Ondansetron Odt* (Zofran Odt*), 4 MG ORAL Q6H PRN for Nausea & Vomiting, ( Reported) Review of Symptoms General ROS: no weight loss or fever Psychological ROS: no depression or mood changes Ophthalmic ROS: no visual changes or eye irritation ENT ROS: no nasal congestion, hearing loss, dizziness Allergy and Immunology ROS: no allergic symptoms or urticaria Hematological and Lymphatic ROS: no swollen glands Endocrine ROS: no polyuria, polydipsia, weight changes Respiratory ROS: no cough, shortness of breath, or wheezing Cardiovascular ROS: no chest pain or dyspnea on exertion Gastrointestinal ROS: ++ abd pain and nausea/vomiting over last few days Musculoskeletal ROS: no myalgias or arthralgias Neurological ROS: no TIA or stroke symptoms Dermatological ROS: no new or changing skin lesions, rashes or pruritis Physical Exam General appearance: alert, cooperative, no distresd Head: Normocephalic, without obvious abnormality, atraumatic Eyes: conjunctivae/corneas clear. PERRL Throat: Lips, mucosa, and tongue normal. Neck: supple, symmetrical, trachea midline, no adenopathy, thyroid: not enlarged, symmetric Lungs: clear to auscultation bilaterally Heart: regular rate and rhythm, S1, S2 normal, no murmur Abdomen: soft, mild discomfort/tender. 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, patent SMA YANNI celiac artery -- in this particular patient, given young age, likely related testosterone injection, and/or other hypercoag disorder --> have sent off hypercoag panel: protein c/s, antithrombin iii, prothrombin gene mutation, lupus anticoag, consider Jak2 as outpatient, may be a early manifestation of a MPD --> in addition, agree with vascular, surgery, requires anticoagulation x 3-6 months minimum --> stop steriod injections at this time --> okay for now to continue heparin gtt, is in the icu, transition to eliquis or xarelto --> Also consider thrombectomy as per vascular/IR --> Goals of anticoagulation therapy are for PV recanalization or prevention of thrombus occlusion, andthus preventing or delaying portal hypertension complications. --> I gave him my office address, absolutely has to f/u to review hypercoag w/u and further recs in re to any further malignancy w/u as needed # Leukocytosis wcb 11K and normal renal functions --> wbc trend 11-->>30k --> trend for improvement as needed --> id evaluation r/o infection # Elevated bilirubin --> Elevated T bili normal direct bili unlikely obstructive in nature --> likely related to pancreatitis v smv/portal thrombosis # Abdominal pain Generalized abdominal pain 10 out of 10 --> afebrile, scan reviewed, no acute surgical intervention indicated --> reviewed by Camron # Dehydration --> continue on ivf # hx of alcohol use and hormone testosterone injections --> discontinue both # Dvt ppx heparin gtt Appreciate consultation and dw Wayne Rizo MD May 19, 2019 05:55
--- NOTE | 2019-05-19 06:00 | NUR ---
NURSE NOTES: temperature noted to be 98.9. patient c/o abdominal pain at this time. Dr. Smith is in pt's room at this time discussing plan of care. family remains at bedside. Heparin drip continues to run at 15 units/kg/hr; lactated ringer's continues to run at 200 cc/hr. will continue to monitor.
[2019-05-19] MEDS: Heparin 25,000u/D5W 500ml 500 ML IV SCH ×2 (06:57→08:58)
[2019-05-19 07:17] LABS: INR 1.2 (0.9-1.1)
[2019-05-19 07:29] LABS: HEMATOCRIT 47.1 % (42.0-52.0); HEMOGLOBIN 15.6 G/DL (14.2-18.0); MEAN CORPUSCULAR VOLUME 93 FL (80-99); PLATELET COUNT 156 K/UL (150-450); RED BLOOD COUNT 5.05 M/UL (4.70-6.10); RED CELL DISTRIBUTION WIDTH 13.4 % (11.6-14.8)
[2019-05-19 07:31] LABS: ALANINE AMINOTRANSFERASE 25 U/L (12-78); ALBUMIN 2.2 G/DL (3.4-5.0); ALBUMIN/GLOBULIN RATIO 0.6 (1.0-2.7); ALKALINE PHOSPHATASE 70 U/L (46-116); ANION GAP 10 mmol/L (5-15); ASPARTATE AMINO TRANSFERASE 29 U/L (15-37); BILIRUBIN,TOTAL 0.8 MG/DL (0.2-1.0); BLOOD UREA NITROGEN 23 mg/dL (7-18); CARBON DIOXIDE 28 MMOL/L (21-32); CHLORIDE 106 MMOL/L (98-107); CREATININE 1.6 MG/DL (0.55-1.30); POTASSIUM 4.7 MMOL/L (3.5-5.1); SODIUM 144 MMOL/L (136-145)
[2019-05-19 07:38] LABS: WHITE BLOOD COUNT 31.2 K/UL (4.8-10.8)
[2019-05-19 07:46] LABS: PHOSPHORUS 2.2 MG/DL (2.5-4.9)
[2019-05-19] MEDS ORDERED: Heparin 5000 units/ml inj IV SCH (08:00)
--- NOTE | 2019-05-19 08:01 | NUR ---
HAND-OFF: Report given to LUIS ALBERTO Casey. endorsed plan of care.
--- NOTE | 2019-05-19 08:05 | NUR ---
NURSE NOTES: Received change of shift report from Vicki SAHU. Pt is asleep, next of kin is visiting at bedside. Pt awakes to name/voice, oriented x4, currently on 2L of oxygen via nasal cannula at 96% O2Sat with slightly diminished lung sounds. 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 Temp 98.8F axillary. Pt is currently on Heparin drip at 15units/kg/hour, infusing via right hand #22G peripheral IV access. IV fluid lactated ringer's is also infusing at 200ml/hour via left FA #20G peripheral IV access. Pt is currently NPO, allowed ice chips. Abdomen is distended, soft, tender to touch with hyperactive bowel sounds. Pt voids using bedside commode, had BM with output of maroon soft stool. Skin is intact. Bed is locked, three side rails up, and call light is placed within easy reach. Will continue to monitor pt and follow plan of care per MD orders and protocol.
[2019-05-19] MEDS ORDERED: Thiamine 100mg tab ORAL SCH (09:00)
--- NOTE | 2019-05-19 09:00 | NUR ---
NURSE NOTES: Heparin drip was titrated up to 17units/kg/hour in addition to bolus IVP per protocol/pharmacy dosage per last PTT. Pt was seen by Dr Hopper. updated on pt status and aware of all lab results. Family remains at bedside. VS remain stable with the exception of slight tachycardia with heart rate in the 110's. Pt had BM x1, soft/liquid maroon. Pt used bedside commode and was assisted back to bed. Pt is currently afebrile.
[2019-05-19] MEDS: Pantoprazole Inj IVP SCH ×2 (09:01→20:39)
--- NOTE | 2019-05-19 09:50 | General Progress Note ---
Assessment/Plan Problem List: (1) Acute mesenteric ischemia ICD Codes: K55.059 - Acute (reversible) ischemia of intestine, part and extent unspecified SNOMED: 80413220 (2) Mesenteric vein thrombosis ICD Codes: K55.069 - Acute infarction of intestine, part and extent unspecified SNOMED: 53450825 (3) Acute pancreatitis ICD Codes: K85.90 - Acute pancreatitis without necrosis or infection, unspecified SNOMED: 754331156 Qualifiers: Qualified Codes: K85.90 - Acute pancreatitis without necrosis or infection, unspecified (4) ANDRE (acute kidney injury) ICD Codes: N17.9 - Acute kidney failure, unspecified SNOMED: 1838413, 88103866 (5) Fatty liver ICD Codes: K76.0 - Fatty (change of) liver, not elsewhere classified SNOMED: 498380190 (6) Elevated bilirubin ICD Codes: R17 - Unspecified jaundice SNOMED: 25581739 (7) Thrombocytopenia ICD Codes: D69.6 - Thrombocytopenia, unspecified SNOMED: 391221203 Status: progressing Assessment/Plan: This is a 54-year-old male who presented with severe abdominal pain and diarrhea first stating 8 days prior to presentation to the ED. He denies heavy alcohol use however admits that he was drinking more than usual during the holiday season. He also later admits to rn long term care 3-4 years of testosterone injection use. His LFTs only remarkable for an elevated bilirubin of 1.8 with normal transaminases.His amylase and lipase are within normal limits, and lactic acid 1.7. His initial CT abdomen pelvis w contrast demonstrated acute uncomplicated pancreatitis and questionable SMV, portal and splenic vein thrombosis vs. flow artifact. abdominal US showed fatty liver and no gallstones or cbd dilatation. Initially admitted for acute pancreatitis. However later developed fever 100, bloody diarrhea, increased lactic acidosis to 3.8, leukocytosis 11-->22. repeat CT abdomen pelvis w contrast showed portal , splenic, and superior mesenteric vein thrombosis. Severe wall edema of the proximal jejunum. Distal jejunal and ileal dilatation without wall thickening. He was transferred to the ICU, started on heparin drip, broad spectrum antibiotics, IV fluids, IV PPI. He is hemodynamically stable. 1. 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 SMV portal vein clots with intact arterial flow, patent SMA YANNI celiac artery. Hypercoagulable vs. infectious 2. Acute pancreatitis. Possibly alcohol induced vs secondary to above. 3. ANDRE 4.Leukocytosis 11->30K, CXR negative 5. Fatty infiltration of the liver 6. Elevated bilirubin 1.8 7.Previous exposure to hepatitis B 8. History of testosterone injection 9. Thrombocytopenia- resolved Plan: Keep in ICU Continue on heparin drip, ptt goal 60-90 continue IVF fluids continue IV PPI BID NPO Broad spectrum antibiotics with meropenem per ID recs, blood cultures Vascular surgery, general surgery, GI, ID and hematology oncology follow up. Hypercoagulable work up per hematology/oncology: protein c/s, antithrombin iii, prothrombin gene mutation, lupus anticoag, consider Jak2 as outpatient requires anticoagulation x 3-6 months minimum stop steroid injections On transfer list at [facility] and [facility] for possible thrombectomy as per IR/ vascular Elevated T bili normal direct bili unlikely obstructive in nature, likely related to pancreatitis/ smv/portal thrombosis or fatty liver Trend renal function, avoid nephrotoxic medications. If worse, renal consult GI and DVT prophylaxis: Heparin drip, IV PPI I spent 75 minutes on this patient's case, and 40 mins was dedicated to critical care Critical Care Services performed include: Telemetry Review Hemodynamic measurement interpretation Laboratory data review and interpretation Radiology image review and interpretation Interpretation of ABG's Discussion of patient's care with ICU team, ICU Nursing staff and/or consulting services Subjective Date patient seen: May 19, 2019 ROS Limited/Unobtainable: No Constitutional: Denies: no symptoms, chills, diaphoresis, fever, malaise, weakness, other Cardiovascular: Denies: no symptoms, chest pain, edema, irregular heart rate, lightheadedness, palpitations, syncope, other Respiratory: Denies: no symptoms, cough, orthopnea, shortness of breath, SOB with excertion, SOB at rest, sputum, stridor, wheezing, other Gastrointestinal/Abdominal: Reports: abdominal pain, blood in stool, diarrhea, nausea, vomiting - coffee ground Genitourinary: Denies: no symptoms, burning, discharge, frequency, flank pain, hematuria, incontinence, pain, urgency, other Neurologic/Psychiatric: Denies: no symptoms, anxiety, depressed, emotional problems, headache, numbness, paresthesia, pre-existing deficit, seizure, tingling, tremors, weakness, other Allergies: Coded Allergies: No Known Allergies (Unverified , 05/16/19) Subjective following up in icu for acute on chronic mesenteric thrombosis and ischemia. Patient transferred to ICU on 05/18. BP stable and wnl, tachycardic now better 120 's. tmax 99.6. Currently alert, awake, and oriented x3, has some abdominal discomfort 5/10. continues to have bloody stools and coffee ground emesis and nausea. No other acute vents overnight. Sister at bedside. They prefer transferring to [facility] over [facility] however want to keep both options open at this point. Objective Last 24 Hour Vital Signs Date Time Temp Pulse Resp B/P (MAP) Pulse Ox O2 Delivery O2 Flow Rate FiO2 05/19/19 07:00 128 14 121/66 (84) 97 05/19/19 06:00 128 20 133/93 (106) 98 05/19/19 05:00 127 19 116/94 (101) 97 05/19/19 04:00 123 05/19/19 04:00 98.4 124 15 99/52 (68) 96 05/19/19 03:00 127 14 111/92 (98) 96 05/19/19 02:00 129 23 121/82 (95) 97 05/19/19 01:00 135 22 112/91 (98) 94 05/19/19 00:00 99.6 125 20 110/85 (93) 97 05/19/19 00:00 123 05/18/19 23:00 127 17 105/75 (85) 97 05/18/19 22:00 138 20 116/83 (94) 97 05/18/19 21:00 Nasal Cannula 2.0 05/18/19 21:00 133 21 109/83 (92) 97 05/18/19 20:00 98.9 138 21 112/84 (93) 97 05/18/19 20:00 138 05/18/19 19:00 138 19 112/93 (99) 97 05/18/19 18:00 146 26 133/85 (101) 97 05/18/19 17:30 98.9 05/18/19 17:00 144 26 132/86 (101) 97 05/18/19 16:00 98.2 137 24 130/85 (100) 94 05/18/19 15:00 125 26 123/99 (107) 97 05/18/19 14:00 128 26 125/98 (107) 97 05/18/19 13:00 136 26 127/92 (104) 98 05/18/19 12:23 129 05/18/19 12:00 98.9 135 28 125/84 (98) 98 05/18/19 11:30 126 26 145/102 (116) 98 05/18/19 09:00 Room Air Intake and Output 05/18/19 05/19/19 19:00 07:00 Intake Total 1397.68 ml 2109.996 ml Balance 1397.68 ml 2109.996 ml Intake IV Total 1397.68 ml 2109.996 ml Laboratory Tests 05/18/19 10:20: Lactic Acid Level 5.10H 05/18/19 17:30: Lactic Acid Level 3.90H, White Blood Count 30.2*H, Red Blood Count 5.45, Hemoglobin 17.0, Hematocrit 49.7, Mean Corpuscular Volume 91, Mean Corpuscular Hemoglobin 31.2H, Mean Corpuscular Hemoglobin Concent 34.3, Red Cell Distribution Width 11.7, Platelet Count 155, Mean Platelet Volume 7.3, Neutrophils (%) (Auto) , Lymphocytes (%) (Auto) , Monocytes (%) (Auto) , Eosinophils (%) (Auto) , Basophils (%) (Auto) , Differential Total Cells Counted 100, Neutrophils % (Manual) 93H, Lymphocytes % (Manual) 1L, Monocytes % (Manual) 4, Eosinophils % (Manual) 0, Basophils % (Manual) 0, Band Neutrophils 2 , Platelet Estimate Adequate, Platelet Morphology Normal, Red Blood Cell Morphology Normal, Activated Partial Thromboplast Time 111H, Sodium Level 143, Potassium Level 4.8, Chloride Level 108H, Carbon Dioxide Level 24, Anion Gap 11 , Blood Urea Nitrogen 17, Creatinine 1.5H, Estimat Glomerular Filtration Rate 49.0, Glucose Level 185H, Calcium Level 7.8L, Total Bilirubin 1.0, Aspartate Amino Transf (AST/SGOT) 19, Alanine Aminotransferase (ALT/SGPT) 21, Alkaline Phosphatase 67, Total Protein 6.2L, Albumin 2.2L, Globulin 4.0, Albumin/ Globulin Ratio 0.6L, Prostate Specific Antigen 1.84 05/18/19 20:10: Lactic Acid Level 3.70H 05/18/19 21:30: Urine Color Yellow, Urine Appearance Clear, Urine pH 5, Urine Specific [place] 1.015, Urine Protein 2+H, Urine Glucose (UA) Negative, Urine Ketones 3+H, Urine Blood 2+H, Urine Nitrite Negative, Urine Bilirubin Negative, Urine Urobilinogen 1H, Urine Leukocyte Esterase 1+H, Urine RBC 0-2H, Urine WBC 0-2, Urine Squamous Epithelial Cells None, Urine Bacteria Few, Stool Occult Blood [Pending] 05/19/19 00:30: Activated Partial Thromboplast Time 72H 05/19/19 06:40: Activated Partial Thromboplast Time 57H, White Blood Count 31.2*H, Red Blood Count 5.05, Hemoglobin 15.6, Hematocrit 47.1, Mean Corpuscular Volume 93, Mean Corpuscular Hemoglobin 30.9, Mean Corpuscular Hemoglobin Concent 33.2, Red Cell Distribution Width 13.4, Platelet Count 156, Mean Platelet Volume 6.0L, Neutrophils (%) (Auto) , Lymphocytes (%) (Auto) , Monocytes (%) (Auto) , Eosinophils (%) (Auto) , Basophils (%) (Auto) , Neutrophils % (Manual) [Pending] , Lymphocytes % (Manual) [Pending], Platelet Estimate [Pending], Platelet Morphology [Pending], Prothrombin Time 12.6H, Prothromb Time International Ratio 1.2H, Lupus Anticoagulant [Pending], Lupus Anticoagulant PTT Baseline [ Pending], Lupus Anticoag DRVVT Screen Ratio [Pending], DRVVT Confirmation Interpretation [Pending], Hexagonal Phase Comment [Pending], Protein C Activity [Pending], Protein S Antigen [Pending], Free Protein S [Pending], Anti-Thrombin III Activity [Pending], Prothrombin Gene Mutation [Pending], Prothrombin Gene Shared Component [Pending], Sodium Level 144, Potassium Level 4.7, Chloride Level 106, Carbon Dioxide Level 28, Anion Gap 10, Blood Urea Nitrogen 23H, Creatinine 1.6H, Estimat Glomerular Filtration Rate 45.4, Glucose Level 135H, Lactic Acid Level 3.10H, Calcium Level 8.0L, Phosphorus Level 2.2L, Magnesium Level 2.1, Total Bilirubin 0.8, Aspartate Amino Transf (AST/SGOT) 29, Alanine Aminotransferase (ALT/SGPT) 25, Alkaline Phosphatase 70, Total Protein 6.2L, Albumin 2.2L, Globulin 4.0, Albumin/Globulin Ratio 0.6L, Carcinoembryonic Antigen [Pending], CA 19-9 Antigen [Pending], Homocystine [Pending] CT abdomen pelvis: Impression: Low-attenuation within the main portal vein, splenic vein, superior mesenteric vein, more striking than on prior exam of 05/16/2019 and 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 Presence of periportal and retroperitoneal collaterals suggests that this may be an acute on chronic process Severe wall edema of the proximal jejunum. Distal jejunal and ileal dilatation without wall thickening. Findings most likely represent enteritis secondary bowel ischemia secondary to the above Interim development of free intraperitoneal fluid, likely secondary to the above Pancreatitis changes are somewhat less striking than evident on the prior exam. No evidence of pancreatic necrosis Fatty liver Prostatomegaly Pulmonary critical dependent atelectatic changes Doppler LE negative for DVT Height (Feet): 5 Height (Inches): 7.00 Weight (Pounds): 170 Objective General Appearance: alert, no distress Lines, tubes and drains: peripheral HEENT: normocephalic, atraumatic, anicteric, mucous membranes moist, PERRL, EOMI Neck: non-tender, supple Respiratory/Chest: chest wall non-tender, lungs clear, normal breath sounds, no respiratory distress, no accessory muscle use Cardiovascular/Chest: normal peripheral pulses, tachycardia, regular rhythm, no gallop/murmur, no JVD Abdomen: soft, tender - epigastric mainly, also diffuse. distended, No guarding , no rebound Extremities: normal range of motion, no edema, no cyanosis Skin Exam: normal pigmentation, warm/dry Neurologic: no motor/sensory deficits, alert, oriented x 3, responsive Musculoskeletal: normal muscle bulk Amor Hopper M.D. May 19, 2019 09:50
--- NOTE | 2019-05-19 09:56 | General Progress Note ---
Assessment/Plan Problem List: (1) Abdominal pain ICD Codes: R10.9 - Unspecified abdominal pain SNOMED: 88006313 Qualifiers: Qualified Codes: R10.84 - Generalized abdominal pain (2) Acute pancreatitis ICD Codes: K85.90 - Acute pancreatitis without necrosis or infection, unspecified SNOMED: 297068735 Qualifiers: Qualified Codes: K85.90 - Acute pancreatitis without necrosis or infection, unspecified (3) Elevated bilirubin ICD Codes: R17 - Unspecified jaundice SNOMED: 99132116 Status: progressing Assessment/Plan: IVF NPO CT reviewed on heparin drip still has rectal bleed vascular surg and hematology in put appreciated will fu Subjective ROS Limited/Unobtainable: Yes Allergies: Coded Allergies: No Known Allergies (Unverified , 05/16/19) Objective Last 24 Hour Vital Signs Date Time Temp Pulse Resp B/P (MAP) Pulse Ox O2 Delivery O2 Flow Rate FiO2 05/19/19 07:00 128 14 121/66 (84) 97 05/19/19 06:00 128 20 133/93 (106) 98 05/19/19 05:00 127 19 116/94 (101) 97 05/19/19 04:00 123 05/19/19 04:00 98.4 124 15 99/52 (68) 96 05/19/19 03:00 127 14 111/92 (98) 96 05/19/19 02:00 129 23 121/82 (95) 97 05/19/19 01:00 135 22 112/91 (98) 94 05/19/19 00:00 99.6 125 20 110/85 (93) 97 05/19/19 00:00 123 05/18/19 23:00 127 17 105/75 (85) 97 05/18/19 22:00 138 20 116/83 (94) 97 05/18/19 21:00 Nasal Cannula 2.0 05/18/19 21:00 133 21 109/83 (92) 97 05/18/19 20:00 98.9 138 21 112/84 (93) 97 05/18/19 20:00 138 05/18/19 19:00 138 19 112/93 (99) 97 05/18/19 18:00 146 26 133/85 (101) 97 05/18/19 17:30 98.9 05/18/19 17:00 144 26 132/86 (101) 97 05/18/19 16:00 98.2 137 24 130/85 (100) 94 05/18/19 15:00 125 26 123/99 (107) 97 05/18/19 14:00 128 26 125/98 (107) 97 05/18/19 13:00 136 26 127/92 (104) 98 05/18/19 12:23 129 05/18/19 12:00 98.9 135 28 125/84 (98) 98 05/18/19 11:30 126 26 145/102 (116) 98 Intake and Output 05/18/19 05/19/19 19:00 07:00 Intake Total 1397.68 ml 2109.996 ml Balance 1397.68 ml 2109.996 ml Intake IV Total 1397.68 ml 2109.996 ml Laboratory Tests 05/18/19 10:20: Lactic Acid Level 5.10H 05/18/19 17:30: Lactic Acid Level 3.90H, White Blood Count 30.2*H, Red Blood Count 5.45, Hemoglobin 17.0, Hematocrit 49.7, Mean Corpuscular Volume 91, Mean Corpuscular Hemoglobin 31.2H, Mean Corpuscular Hemoglobin Concent 34.3, Red Cell Distribution Width 11.7, Platelet Count 155, Mean Platelet Volume 7.3, Neutrophils (%) (Auto) , Lymphocytes (%) (Auto) , Monocytes (%) (Auto) , Eosinophils (%) (Auto) , Basophils (%) (Auto) , Differential Total Cells Counted 100, Neutrophils % (Manual) 93H, Lymphocytes % (Manual) 1L, Monocytes % (Manual) 4, Eosinophils % (Manual) 0, Basophils % (Manual) 0, Band Neutrophils 2 , Platelet Estimate Adequate, Platelet Morphology Normal, Red Blood Cell Morphology Normal, Activated Partial Thromboplast Time 111H, Sodium Level 143, Potassium Level 4.8, Chloride Level 108H, Carbon Dioxide Level 24, Anion Gap 11 , Blood Urea Nitrogen 17, Creatinine 1.5H, Estimat Glomerular Filtration Rate 49.0, Glucose Level 185H, Calcium Level 7.8L, Total Bilirubin 1.0, Aspartate Amino Transf (AST/SGOT) 19, Alanine Aminotransferase (ALT/SGPT) 21, Alkaline Phosphatase 67, Total Protein 6.2L, Albumin 2.2L, Globulin 4.0, Albumin/ Globulin Ratio 0.6L, Prostate Specific Antigen 1.84 05/18/19 20:10: Lactic Acid Level 3.70H 05/18/19 21:30: Urine Color Yellow, Urine Appearance Clear, Urine pH 5, Urine Specific [place] 1.015, Urine Protein 2+H, Urine Glucose (UA) Negative, Urine Ketones 3+H, Urine Blood 2+H, Urine Nitrite Negative, Urine Bilirubin Negative, Urine Urobilinogen 1H, Urine Leukocyte Esterase 1+H, Urine RBC 0-2H, Urine WBC 0-2, Urine Squamous Epithelial Cells None, Urine Bacteria Few, Stool Occult Blood [Pending] 05/19/19 00:30: Activated Partial Thromboplast Time 72H 05/19/19 06:40: Activated Partial Thromboplast Time 57H, White Blood Count 31.2*H, Red Blood Count 5.05, Hemoglobin 15.6, Hematocrit 47.1, Mean Corpuscular Volume 93, Mean Corpuscular Hemoglobin 30.9, Mean Corpuscular Hemoglobin Concent 33.2, Red Cell Distribution Width 13.4, Platelet Count 156, Mean Platelet Volume 6.0L, Neutrophils (%) (Auto) , Lymphocytes (%) (Auto) , Monocytes (%) (Auto) , Eosinophils (%) (Auto) , Basophils (%) (Auto) , Neutrophils % (Manual) [Pending] , Lymphocytes % (Manual) [Pending], Platelet Estimate [Pending], Platelet Morphology [Pending], Prothrombin Time 12.6H, Prothromb Time International Ratio 1.2H, Lupus Anticoagulant [Pending], Lupus Anticoagulant PTT Baseline [ Pending], Lupus Anticoag DRVVT Screen Ratio [Pending], DRVVT Confirmation Interpretation [Pending], Hexagonal Phase Comment [Pending], Protein C Activity [Pending], Protein S Antigen [Pending], Free Protein S [Pending], Anti-Thrombin III Activity [Pending], Prothrombin Gene Mutation [Pending], Prothrombin Gene Shared Component [Pending], Sodium Level 144, Potassium Level 4.7, Chloride Level 106, Carbon Dioxide Level 28, Anion Gap 10, Blood Urea Nitrogen 23H, Creatinine 1.6H, Estimat Glomerular Filtration Rate 45.4, Glucose Level 135H, Lactic Acid Level 3.10H, Calcium Level 8.0L, Phosphorus Level 2.2L, Magnesium Level 2.1, Total Bilirubin 0.8, Aspartate Amino Transf (AST/SGOT) 29, Alanine Aminotransferase (ALT/SGPT) 25, Alkaline Phosphatase 70, Total Protein 6.2L, Albumin 2.2L, Globulin 4.0, Albumin/Globulin Ratio 0.6L, Carcinoembryonic Antigen [Pending], CA 19-9 Antigen [Pending], Homocystine [Pending] Height (Feet): 5 Height (Inches): 7.00 Weight (Pounds): 170 General Appearance: alert EENT: normal ENT inspection Neck: supple Cardiovascular: normal rate Respiratory/Chest: lungs clear Abdomen: soft, hypoactive bowel sounds, tender Extremities: non-tender Christopher Gonzalez MD May 19, 2019 09:56
[2019-05-19] MEDS ORDERED: Sodium Phosphate 15 MM in NS 275 ML IVPB ONE (10:00)
--- NOTE | 2019-05-19 10:00 | NUR ---
NURSE NOTES: Pt had vomiting episode with greenish/brown liquid output and was administered Zofran 4mg IVP per PRN order at 0900. Pt reports relief.
--- NOTE | 2019-05-19 10:49 | Surgery Progress Note ---
Surgery Progress Note Subjective Symptoms: improved, voiding well, passing flatus, BM, pain decreased Objective Last 24 Hour Vital Signs Date Time Temp Pulse Resp B/P (MAP) Pulse Ox O2 Delivery O2 Flow Rate FiO2 05/19/19 07:00 128 14 121/66 (84) 97 05/19/19 06:00 128 20 133/93 (106) 98 05/19/19 05:00 127 19 116/94 (101) 97 05/19/19 04:00 123 05/19/19 04:00 98.4 124 15 99/52 (68) 96 05/19/19 03:00 127 14 111/92 (98) 96 05/19/19 02:00 129 23 121/82 (95) 97 05/19/19 01:00 135 22 112/91 (98) 94 05/19/19 00:00 99.6 125 20 110/85 (93) 97 05/19/19 00:00 123 05/18/19 23:00 127 17 105/75 (85) 97 05/18/19 22:00 138 20 116/83 (94) 97 05/18/19 21:00 Nasal Cannula 2.0 05/18/19 21:00 133 21 109/83 (92) 97 05/18/19 20:00 98.9 138 21 112/84 (93) 97 05/18/19 20:00 138 05/18/19 19:00 138 19 112/93 (99) 97 05/18/19 18:00 146 26 133/85 (101) 97 05/18/19 17:30 98.9 05/18/19 17:00 144 26 132/86 (101) 97 05/18/19 16:00 98.2 137 24 130/85 (100) 94 05/18/19 15:00 125 26 123/99 (107) 97 05/18/19 14:00 128 26 125/98 (107) 97 05/18/19 13:00 136 26 127/92 (104) 98 05/18/19 12:23 129 05/18/19 12:00 98.9 135 28 125/84 (98) 98 05/18/19 11:30 126 26 145/102 (116) 98 I&O Intake and Output 05/18/19 05/19/19 19:00 07:00 Intake Total 1397.68 ml 2109.996 ml Balance 1397.68 ml 2109.996 ml Intake IV Total 1397.68 ml 2109.996 ml Cardiovascular: RSR Respiratory: clear Abdomen: soft, tenderness - improved, decreased bowel sounds Extremities: no tenderness, no cyanosis Laboratory Tests Test 05/18/19 17:30 05/18/19 20:10 05/18/19 21:30 05/19/19 00:30 White Blood Count 30.2 K/UL (4.8-10.8) *H Red Blood Count 5.45 M/UL (4.70-6.10) Hemoglobin 17.0 G/DL (14.2-18.0) Hematocrit 49.7 % (42.0-52.0) Mean Corpuscular Volume 91 FL (80-99) Mean Corpuscular Hemoglobin 31.2 PG (27.0-31.0) H Mean Corpuscular Hemoglobin Concent 34.3 G/DL (32.0-36.0) Red Cell Distribution Width 11.7 % (11.6-14.8) Platelet Count 155 K/UL (150-450) Mean Platelet Volume 7.3 FL (6.5-10.1) Neutrophils (%) (Auto) % (45.0-75.0) Lymphocytes (%) (Auto) % (20.0-45.0) Monocytes (%) (Auto) % (1.0-10.0) Eosinophils (%) (Auto) % (0.0-3.0) Basophils (%) (Auto) % (0.0-2.0) Differential Total Cells Counted 100 Neutrophils % (Manual) 93 % (45-75) H Lymphocytes % (Manual) 1 % (20-45) L Monocytes % (Manual) 4 % (1-10) Eosinophils % (Manual) 0 % (0-3) Basophils % (Manual) 0 % (0-2) Band Neutrophils 2 % (0-8) Platelet Estimate Adequate Platelet Morphology Normal Red Blood Cell Morphology Normal Activated Partial Thromboplast Time 111 SEC (23-33) H 72 SEC (23-33) H Sodium Level 143 MMOL/L (136-145) Potassium Level 4.8 MMOL/L (3.5-5.1) Chloride Level 108 MMOL/L (98-107) H Carbon Dioxide Level 24 MMOL/L (21-32) Anion Gap 11 mmol/L (5-15) Blood Urea Nitrogen 17 mg/dL (7-18) Creatinine 1.5 MG/DL (0.55-1.30) H Estimat Glomerular Filtration Rate 49.0 mL/min (>60) Glucose Level 185 MG/DL (74-106) H Lactic Acid Level 3.90 mmol/L (0.4-2.0) H 3.70 mmol/L (0.66-2.22) H Calcium Level 7.8 MG/DL (8.5-10.1) L Total Bilirubin 1.0 MG/DL (0.2-1.0) Aspartate Amino Transf (AST/SGOT) 19 U/L (15-37) Alanine Aminotransferase (ALT/SGPT) 21 U/L (12-78) Alkaline Phosphatase 67 U/L (46-116) Total Protein 6.2 G/DL (6.4-8.2) L Albumin 2.2 G/DL (3.4-5.0) L Globulin 4.0 g/dL Albumin/Globulin Ratio 0.6 (1.0-2.7) L Prostate Specific Antigen 1.84 ng/mL (0.13-4.0) Urine Color Yellow Urine Appearance Clear Urine pH 5 (4.5-8.0) Urine Specific [place] 1.015 (1.005-1.035) Urine Protein 2+ (NEGATIVE) H Urine Glucose (UA) Negative (NEGATIVE) Urine Ketones 3+ (NEGATIVE) H Urine Blood 2+ (NEGATIVE) H Urine Nitrite Negative (NEGATIVE) Urine Bilirubin Negative (NEGATIVE) Urine Urobilinogen 1 MG/DL (0.0-1.0) H Urine Leukocyte Esterase 1+ (NEGATIVE) H Urine RBC 0-2 /HPF (0 - 0) H Urine WBC 0-2 /HPF (0 - 0) Urine Squamous Epithelial Cells None /LPF (NONE/OCC) Urine Bacteria Few /HPF (NONE) Stool Occult Blood Pending Test 05/19/19 06:40 White Blood Count 31.2 K/UL (4.8-10.8) *H Red Blood Count 5.05 M/UL (4.70-6.10) Hemoglobin 15.6 G/DL (14.2-18.0) Hematocrit 47.1 % (42.0-52.0) Mean Corpuscular Volume 93 FL (80-99) Mean Corpuscular Hemoglobin 30.9 PG (27.0-31.0) Mean Corpuscular Hemoglobin Concent 33.2 G/DL (32.0-36.0) Red Cell Distribution Width 13.4 % (11.6-14.8) Platelet Count 156 K/UL (150-450) Mean Platelet Volume 6.0 FL (6.5-10.1) L Neutrophils (%) (Auto) % (45.0-75.0) Lymphocytes (%) (Auto) % (20.0-45.0) Monocytes (%) (Auto) % (1.0-10.0) Eosinophils (%) (Auto) % (0.0-3.0) Basophils (%) (Auto) % (0.0-2.0) Differential Total Cells Counted 100 Neutrophils % (Manual) 79 % (45-75) H Lymphocytes % (Manual) 6 % (20-45) L Monocytes % (Manual) 13 % (1-10) H Eosinophils % (Manual) 0 % (0-3) Basophils % (Manual) 0 % (0-2) Band Neutrophils 2 % (0-8) Platelet Estimate Adequate Platelet Morphology Normal Red Blood Cell Morphology Normal Prothrombin Time 12.6 SEC (9.30-11.50) H Prothromb Time International Ratio 1.2 (0.9-1.1) H Activated Partial Thromboplast Time 57 SEC (23-33) H Lupus Anticoagulant Pending Lupus Anticoagulant PTT Baseline Pending Lupus Anticoag DRVVT Screen Ratio Pending DRVVT Confirmation Interpretation Pending Hexagonal Phase Comment Pending Protein C Activity Pending Protein S Antigen Pending Free Protein S Pending Anti-Thrombin III Activity Pending Prothrombin Gene Mutation Pending Prothrombin Gene Shared Component Pending Sodium Level 144 MMOL/L (136-145) Potassium Level 4.7 MMOL/L (3.5-5.1) Chloride Level 106 MMOL/L (98-107) Carbon Dioxide Level 28 MMOL/L (21-32) Anion Gap 10 mmol/L (5-15) Blood Urea Nitrogen 23 mg/dL (7-18) H Creatinine 1.6 MG/DL (0.55-1.30) H Estimat Glomerular Filtration Rate 45.4 mL/min (>60) Glucose Level 135 MG/DL (74-106) H Lactic Acid Level 3.10 mmol/L (0.4-2.0) H Calcium Level 8.0 MG/DL (8.5-10.1) L Phosphorus Level 2.2 MG/DL (2.5-4.9) L Magnesium Level 2.1 MG/DL (1.8-2.4) Total Bilirubin 0.8 MG/DL (0.2-1.0) Aspartate Amino Transf (AST/SGOT) 29 U/L (15-37) Alanine Aminotransferase (ALT/SGPT) 25 U/L (12-78) Alkaline Phosphatase 70 U/L (46-116) Total Protein 6.2 G/DL (6.4-8.2) L Albumin 2.2 G/DL (3.4-5.0) L Globulin 4.0 g/dL Albumin/Globulin Ratio 0.6 (1.0-2.7) L Carcinoembryonic Antigen Pending CA 19-9 Antigen Pending Homocystine Pending Plan Problems: (1) Elevated bilirubin Assessment & Plan: Elevated T bili normal direct bili unlikely obstructive in nature No bleeding -initially but now noted to have bleeding last night and a stool. Likely etiology Pending hepatitis panel -reviewed prior from outpatient setting discussed with PCP and primary Trend labs (2) Abdominal pain Assessment & Plan: Generalized abdominal pain 10 out of 10 Clinically mildly distended nontender may be some discomfort on palpation Afebrile hemodynamic stable CT scan reviewed as below No acute surgical intervention indicated N.p.o. IV fluids IV antibiotics Trend labs Acute deterioration last night. 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 Arteries not obstructed with good inflow. Bowel edema noted distended tender bloody bowel movements Continue heparin drip Will follow with serial abdominal exams Discussed with PCP family patient and medical teams improved today on heparin gtt discussed case with family, patient, pcp, medical team leukocytosis lactic acidosis improving overall improved today We will follow with recommendations Thank you for let me participate in patient's care (3) Acute pancreatitis Assessment & Plan: There is infiltration of the peripancreatic fat and slight indistinctness of the pancreatic margins, particularly in the region of the head and uncinate process. No discrete fluid collections are demonstrated. The pancreas enhances normally. Intrahepatic portal vein radicals and the hepatic veins enhance normally. However, the main portal vein, splenic vein, superior mesenteric vein demonstrate low-attenuation than would be expected with normal enhancement, although a higher in attenuation than would be expected if thrombosed. Also, collateral veins are seen surrounding the main portal vein suggestive of cavernous transformation The liver demonstrates diffuse mild hypoattenuation, consistent with fatty change. No focal abnormalities. The gallbladder is unremarkable. The spleen, adrenals, kidneys are unremarkable. No pelvic mass or adenopathy. The prostate is enlarged. The GI tract is well opacified. The distal esophagus, stomach, duodenum are unremarkable. There is no evidence of diverticulosis or diverticulitis. The appendix is normal. No small bowel distention or small bowel wall thickening. No free or loculated intraperitoneal gas or fluid. The included lung bases are clear. The bones are unremarkable except for degenerative changes of the lumbosacral junction.. Impression: Findings compatible with uncomplicated acute pancreatitis Unusual intermediate attenuation of the portal splenic veins and superior mesenteric vein. Attenuation is lower than expected normal enhancement but somewhat higher than would be expected in thrombosis. Possibly representing flow artifact, although the presence of periportal collaterals does suggest thrombosis. Recommend duplex sonography to confirm Again demonstrated is low attenuation of the main portal vein, the splenic vein, and the superior mesenteric vein, more striking currently than previously , with a fairly definite filling defect in the main superior mesenteric vein. Numerous venous collaterals are seen in the retroperitoneum as well as evidence of cavernous periportal collaterals . The celiac axis, superior mesenteric artery, and inferior mesenteric artery are all patent. There is interim development of severe wall edema involving the proximal jejunum. Benign pneumatosis. More distally, the jejunum is dilated but the wall is not thickened. There is gradual transition to normal caliber small bowel even farther distally. The appendix is normal. The colon is upper limits of normal in caliber proximally, filled with liquid contrast, no definite wall thickening. No evidence of diverticulosis or diverticulitis. Interim development of free intraperitoneal fluid, seen within the pelvis, the mesenteric root, bilateral paracolic gutters, and surrounding the liver. Previously demonstrated pancreatic edema and peripancreatic inflammatory changes are somewhat less striking than evident previously. There is normal enhancement of the pancreas. Normal caliber pancreatic duct. The gallbladder is filled with dense contents, probably excreted contrast The liver demonstrates diffuse and patchy hypoattenuation, consistent with fatty change. The spleen, adrenals, kidneys are unremarkable. No retroperitoneal or mesenteric mass or adenopathy. The prostate is enlarged. The bladder is unremarkable. No pelvic mass or adenopathy. Incompletely descended left testicle is noted. The bones are unremarkable. The included lung bases demonstrate atelectatic changes. 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 Presence of periportal and retroperitoneal collaterals suggests that this may be an acute on chronic process Severe wall edema of the proximal jejunum. Distal jejunal and ileal dilatation without wall thickening. Findings most likely represent enteritis secondary bowel ischemia secondary to the above Interim development of free intraperitoneal fluid, likely secondary to the above Pancreatitis changes are somewhat less striking than evident on the prior exam. No evidence of pancreatic necrosis Fatty liver Prostatomegaly Pulmonary critical dependent atelectatic changes Gómez Lyon May 19, 2019 10:49
--- NOTE | 2019-05-19 11:00 | NUR ---
NURSE NOTES: Pt was administered Dilaudid 2mg IVP per PRN order for severe abdominal pain 10/10 scale. Pt currently reports pain relief at 0/10 and would like to sleep. Family stepped out to the waiting room. VS remain stable.
--- NOTE | 2019-05-19 13:39 | NUR ---
RD ASSESSMENT & RECOMMENDATIONS SEE CARE ACTIVITY FOR COMPLETE ASSESSMENT DAILY ESTIMATED NEEDS: Needs based on Pancreatitis/ 77kg 25-30 kcals/kg 1342-3688 total kcals 1-1.5 g protein/kg 77-115 g total protein 25-30 mL/kg 1819-7362 total fluid mLs NUTRITION DIAGNOSIS: Altered GI function R/T acute pancreatitis as evidenced by pt c/o N/V, bloody diarrhea, abdominal pain, NPO at this time. CURRENT DIET:NPO PO DIET RECOMMENDATIONS: Initiate diet per MD -> LOW FAT, LOW NA ADDITIONAL RECOMMENDATIONS: * Standing wt as able for accurate CBW * Monitor NPO status, ability for oral diet * Monitor BGs closely, need for carb controlled diet * Monitor lytes, replete as needed (low phos)
--- NOTE | 2019-05-19 13:41 | NUR ---
CASE MANAGEMENT:CALL TO [facility] [place] MAD [place] [facility] [place] [facility] AT [phone] PATIENT INFORMATION LEFT FOR TRANSFER REQUEST AWAITING CALL BACK AT THIS TIME WILL FOLLOW UP
--- NOTE | 2019-05-19 13:50 | NUR ---
CASE MANAGEMENT:REVIEW SI;ACUTE MESENTERIC ISCHEMIA. MESENTERIC VEIN THROMBOSIS. ANDRE. 98.4 128 22 99/52 94% ON 2L NC WBC 31.2 BUN 23 CR 1.6 CA 8 ALB 2.2 PHOS 2.2 IS;IV ZOFRAN Q6HRS PRN IV MORPHINE Q3HRS PRN IV DILAUDID Q3HRS PRN LACTATED RINGERS @ 200ML/HR IV HEPARIN PER PROTOCOL IV PROTONIX Q12 HRS IV MEROPENEM Q8 HRS ICU STATUS PLAN OF CARE; IVF HEPARIN GTT BROAD SPECTRUM ATB
--- NOTE | 2019-05-19 14:15 | NUR ---
NURSE NOTES: Pt was administered Dilaudid 2mg IVP per PRN order for severe abdominal pain at 1336 and now reports pain-relief at 0/10 scale. VS remain stable. manager functional is at bedside speaking with pt and family and updating them regarding the status of pt being transferred out of [facility]; currently still waiting for a bed.
--- NOTE | 2019-05-19 15:30 | NUR ---
NURSE NOTES: Timed PTT was redrawn at 1500 and per protocol, pharmacist recommendation, Heparin drip is to be maintained at 17units/kg/hour and redo timed PTT at 0400 tomorrow AM.
--- NOTE | 2019-05-19 16:00 | NUR ---
NURSE NOTES: Pt had BM x1, liquid/maroon with small clots. Pt was cleaned, and assisted back to bed. VS remain stable.
--- NOTE | 2019-05-19 16:05 | NUR ---
CASE MANAGEMENT:[facility] [place] FOLLOW UP CALL RECEIVED FROM IVIS AT [facility] TO REQUEST CLINICALS FOR REVIEW CURRENT AVAILABLE CLINICALS FAXED TO [phone] [facility] CONTACT IVIS [phone] - DIRECT ICU CHARGE NURSE LUIS ALBERTO MEDINA AND FAMILY AWARE
--- NOTE | 2019-05-19 16:19 | NUR ---
*-* INSURANCE *-* ALL AVAILABLE CLINICALS HAVE BEEN FAXED TO: RADHA CORONEL REF#[id number] NO [facility]#[phone] FAX#[phone] REVIEWS/CLINICALS
--- NOTE | 2019-05-19 17:20 | Infectious Diseases Prog Note ---
Assessment/Plan Assessment/Plan Full consult dictated: A) 1) possible pancreatitis, portal/SMV/splenic vein thrombosis 2) leukocytosis, fevers, ? sepsis 3) pmh noted 4) allergies P) 1) meropenem 2) supportive care 3) check cultures 4) monitor labs 5) continue treatment per primary and consultants Subjective Constitutional: Denies: fever HEENT: Denies: congestion Respiratory: Denies: shortness of breath Cardiovascular: Denies: chest pain Gastrointestinal/Abdominal: Reports: other - some abdominal pain; Denies: nausea, vomiting, diarrhea Allergies: Coded Allergies: No Known Allergies (Unverified , 05/16/19) Objective Vital Signs Last 24 Hour Vital Signs Date Time Temp Pulse Resp B/P (MAP) Pulse Ox O2 Delivery O2 Flow Rate FiO2 05/19/19 16:00 112 13 160/86 (110) 98 05/19/19 16:00 109 05/19/19 15:00 112 12 129/88 (102) 95 05/19/19 14:06 98.4 05/19/19 14:00 114 20 123/90 (101) 94 05/19/19 13:00 116 22 123/90 (101) 97 05/19/19 12:00 124 19 99/65 (76) 96 05/19/19 12:00 131 05/19/19 11:00 125 12 116/88 (97) 95 05/19/19 10:00 122 18 112/79 (90) 97 05/19/19 09:00 122 17 138/94 (109) 97 05/19/19 09:00 Nasal Cannula 2.0 05/19/19 08:00 98.8 128 15 128/85 (99) 94 05/19/19 08:00 133 05/19/19 08:00 96 Nasal Cannula 2.0 28 05/19/19 07:00 128 14 121/66 (84) 97 05/19/19 06:00 128 20 133/93 (106) 98 05/19/19 05:00 127 19 116/94 (101) 97 05/19/19 04:00 123 05/19/19 04:00 98.4 124 15 99/52 (68) 96 05/19/19 03:00 127 14 111/92 (98) 96 05/19/19 02:00 129 23 121/82 (95) 97 05/19/19 01:00 135 22 112/91 (98) 94 05/19/19 00:00 99.6 125 20 110/85 (93) 97 05/19/19 00:00 123 05/18/19 23:00 127 17 105/75 (85) 97 05/18/19 22:00 138 20 116/83 (94) 97 05/18/19 21:00 Nasal Cannula 2.0 05/18/19 21:00 133 21 109/83 (92) 97 05/18/19 20:00 98.9 138 21 112/84 (93) 97 05/18/19 20:00 138 05/18/19 19:00 138 19 112/93 (99) 97 05/18/19 18:00 146 26 133/85 (101) 97 Height (Feet): 5 Height (Inches): 7.00 Weight (Pounds): 77 General Appearance: no acute distress HEENT: normocephalic, atraumatic, anicteric, mucous membranes moist Respiratory/Chest: lungs clear, normal breath sounds, no respiratory distress Cardiovascular: normal rate, regular rhythm Abdomen: normal bowel sounds, soft, non tender, non distended Laboratory Tests Test 05/18/19 17:30 05/18/19 20:10 05/18/19 21:30 05/19/19 00:30 White Blood Count 30.2 K/UL (4.8-10.8) *H Red Blood Count 5.45 M/UL (4.70-6.10) Hemoglobin 17.0 G/DL (14.2-18.0) Hematocrit 49.7 % (42.0-52.0) Mean Corpuscular Volume 91 FL (80-99) Mean Corpuscular Hemoglobin 31.2 PG (27.0-31.0) H Mean Corpuscular Hemoglobin Concent 34.3 G/DL (32.0-36.0) Red Cell Distribution Width 11.7 % (11.6-14.8) Platelet Count 155 K/UL (150-450) Mean Platelet Volume 7.3 FL (6.5-10.1) Neutrophils (%) (Auto) % (45.0-75.0) Lymphocytes (%) (Auto) % (20.0-45.0) Monocytes (%) (Auto) % (1.0-10.0) Eosinophils (%) (Auto) % (0.0-3.0) Basophils (%) (Auto) % (0.0-2.0) Differential Total Cells Counted 100 Neutrophils % (Manual) 93 % (45-75) H Lymphocytes % (Manual) 1 % (20-45) L Monocytes % (Manual) 4 % (1-10) Eosinophils % (Manual) 0 % (0-3) Basophils % (Manual) 0 % (0-2) Band Neutrophils 2 % (0-8) Platelet Estimate Adequate Platelet Morphology Normal Red Blood Cell Morphology Normal Activated Partial Thromboplast Time 111 SEC (23-33) H 72 SEC (23-33) H Sodium Level 143 MMOL/L (136-145) Potassium Level 4.8 MMOL/L (3.5-5.1) Chloride Level 108 MMOL/L (98-107) H Carbon Dioxide Level 24 MMOL/L (21-32) Anion Gap 11 mmol/L (5-15) Blood Urea Nitrogen 17 mg/dL (7-18) Creatinine 1.5 MG/DL (0.55-1.30) H Estimat Glomerular Filtration Rate 49.0 mL/min (>60) Glucose Level 185 MG/DL (74-106) H Lactic Acid Level 3.90 mmol/L (0.4-2.0) H 3.70 mmol/L (0.66-2.22) H Calcium Level 7.8 MG/DL (8.5-10.1) L Total Bilirubin 1.0 MG/DL (0.2-1.0) Aspartate Amino Transf (AST/SGOT) 19 U/L (15-37) Alanine Aminotransferase (ALT/SGPT) 21 U/L (12-78) Alkaline Phosphatase 67 U/L (46-116) Total Protein 6.2 G/DL (6.4-8.2) L Albumin 2.2 G/DL (3.4-5.0) L Globulin 4.0 g/dL Albumin/Globulin Ratio 0.6 (1.0-2.7) L Prostate Specific Antigen 1.84 ng/mL (0.13-4.0) Urine Color Yellow Urine Appearance Clear Urine pH 5 (4.5-8.0) Urine Specific [place] 1.015 (1.005-1.035) Urine Protein 2+ (NEGATIVE) H Urine Glucose (UA) Negative (NEGATIVE) Urine Ketones 3+ (NEGATIVE) H Urine Blood 2+ (NEGATIVE) H Urine Nitrite Negative (NEGATIVE) Urine Bilirubin Negative (NEGATIVE) Urine Urobilinogen 1 MG/DL (0.0-1.0) H Urine Leukocyte Esterase 1+ (NEGATIVE) H Urine RBC 0-2 /HPF (0 - 0) H Urine WBC 0-2 /HPF (0 - 0) Urine Squamous Epithelial Cells None /LPF (NONE/OCC) Urine Bacteria Few /HPF (NONE) Stool Occult Blood Positive (NEGATIVE) Test 05/19/19 06:40 05/19/19 14:55 White Blood Count 31.2 K/UL (4.8-10.8) *H Red Blood Count 5.05 M/UL (4.70-6.10) Hemoglobin 15.6 G/DL (14.2-18.0) Hematocrit 47.1 % (42.0-52.0) Mean Corpuscular Volume 93 FL (80-99) Mean Corpuscular Hemoglobin 30.9 PG (27.0-31.0) Mean Corpuscular Hemoglobin Concent 33.2 G/DL (32.0-36.0) Red Cell Distribution Width 13.4 % (11.6-14.8) Platelet Count 156 K/UL (150-450) Mean Platelet Volume 6.0 FL (6.5-10.1) L Neutrophils (%) (Auto) % (45.0-75.0) Lymphocytes (%) (Auto) % (20.0-45.0) Monocytes (%) (Auto) % (1.0-10.0) Eosinophils (%) (Auto) % (0.0-3.0) Basophils (%) (Auto) % (0.0-2.0) Differential Total Cells Counted 100 Neutrophils % (Manual) 79 % (45-75) H Lymphocytes % (Manual) 6 % (20-45) L Monocytes % (Manual) 13 % (1-10) H Eosinophils % (Manual) 0 % (0-3) Basophils % (Manual) 0 % (0-2) Band Neutrophils 2 % (0-8) Platelet Estimate Adequate Platelet Morphology Normal Red Blood Cell Morphology Normal Prothrombin Time 12.6 SEC (9.30-11.50) H Prothromb Time International Ratio 1.2 (0.9-1.1) H Activated Partial Thromboplast Time 57 SEC (23-33) H 87 SEC (23-33) H Lupus Anticoagulant Pending Lupus Anticoagulant PTT Baseline Pending Lupus Anticoag DRVVT Screen Ratio Pending DRVVT Confirmation Interpretation Pending Hexagonal Phase Comment Pending Protein C Activity Pending Protein S Antigen Pending Free Protein S Pending Anti-Thrombin III Activity Pending Prothrombin Gene Mutation Pending Prothrombin Gene Shared Component Pending Sodium Level 144 MMOL/L (136-145) Potassium Level 4.7 MMOL/L (3.5-5.1) Chloride Level 106 MMOL/L (98-107) Carbon Dioxide Level 28 MMOL/L (21-32) Anion Gap 10 mmol/L (5-15) Blood Urea Nitrogen 23 mg/dL (7-18) H Creatinine 1.6 MG/DL (0.55-1.30) H Estimat Glomerular Filtration Rate 45.4 mL/min (>60) Glucose Level 135 MG/DL (74-106) H Lactic Acid Level 3.10 mmol/L (0.4-2.0) H Calcium Level 8.0 MG/DL (8.5-10.1) L Phosphorus Level 2.2 MG/DL (2.5-4.9) L Magnesium Level 2.1 MG/DL (1.8-2.4) Total Bilirubin 0.8 MG/DL (0.2-1.0) Aspartate Amino Transf (AST/SGOT) 29 U/L (15-37) Alanine Aminotransferase (ALT/SGPT) 25 U/L (12-78) Alkaline Phosphatase 70 U/L (46-116) Total Protein 6.2 G/DL (6.4-8.2) L Albumin 2.2 G/DL (3.4-5.0) L Globulin 4.0 g/dL Albumin/Globulin Ratio 0.6 (1.0-2.7) L Carcinoembryonic Antigen Pending CA 19-9 Antigen Pending Homocystine Pending Current Medications Medications (Trade) Dose Ordered Sig/Tonie Route PRN Reason Start Time Stop Time Status Last Admin Dose Admin Acetaminophen (Tylenol) 650 mg Q4H PRN ORAL fever 05/18/19 11:49 06/17/19 11:48 Dextrose (Dextrose 50%) 25 ml Q30M PRN IV Hypoglycemia 05/18/19 11:45 06/15/19 20:14 Dextrose (Dextrose 50%) 50 ml Q30M PRN IV Hypoglycemia 05/18/19 11:45 06/15/19 20:14 Diphenhydramine HCl (Benadryl) 25 mg Q6H PRN ORAL Itching/Pruritis 05/18/19 11:49 06/17/19 11:48 Heparin Sodium/ Dextrose 500 ml @ 26.218 mls/ hr ADJUST PER PROTOCOL IV 05/19/19 08:00 06/17/19 18:39 05/19/19 08:58 Hydromorphone HCl (Dilaudid) 1 mg Q3H PRN IVP For Pain 4-6 05/18/19 11:44 05/25/19 11:43 Hydromorphone HCl (Dilaudid) 2 mg Q3H PRN IVP Severe Pain (Pain Scale 7-10) 05/18/19 11:44 05/25/19 11:43 05/19/19 13:36 Lactated Ringer's 1,000 ml @ 200 mls/hr Q5H IV 05/18/19 11:48 06/17/19 11:47 05/19/19 10:23 Meropenem 1 gm/ Sodium Chloride 100 ml @ 200 mls/hr Q8HR IVPB 05/18/19 15:00 05/23/19 14:59 05/19/19 13:37 Morphine Sulfate (Morphine Sulfate) 1 mg Q3H PRN IVP pain 1-3 05/18/19 11:49 05/25/19 11:48 Ondansetron HCl (Zofran) 4 mg Q6H PRN IVP Nausea & Vomiting 05/18/19 11:49 06/17/19 11:48 05/19/19 09:01 Pantoprazole (Protonix) 40 mg EVERY 12 HOURS IVP 05/18/19 21:00 06/17/19 20:59 05/19/19 09:01 Keith Hines MD May 19, 2019 17:20
--- NOTE | 2019-05-19 17:29 | NUR ---
CASE MANAGEMENT:[facility] FOLLOW UP CALL FOLLOW UP CALL TO [facility] TRANSFER C[facility] CURRENT CLINICALS REQUESTED CURRENT CLINICALS FAXED TO [phone] FOR FURTHER REVIEW WILL FOLLOW UP
--- NOTE | 2019-05-19 17:32 | NUR ---
NURSE NOTES: Pt was administered Dilaudid 2mg and Zofran 4mg IVPs per PRN order for severe abdominal pain and nausea/vomiting. VS remain stable. Pt is slightly tachycardic. Family is at bedside. Heparin drip is maintained at 17units/kg/hour per last PTT/protocol and pharmacist verification/dosage.
--- NOTE | 2019-05-19 18:53 | NUR ---
NURSE NOTES: Pt is asleep with stable VS. Family is at bedside.
--- NOTE | 2019-05-19 19:30 | NUR ---
NURSE NOTES: Received report from LUIS ALBERTO Casey. Pt is resting on the bed and awake, alert and oriented. Family stays at bedside. On O2 2L via nasal cannula and SaO2 98% noted. On tele monitor ST with HR: 105's. No fever. Iv site intact and no sign of infiltration noted and on Heparin drip at 17units/kg/hour and no sign of active bleeding at this time. On running lactated ringer's is also infusing at 200ml/hour. Keep NPO, allowed ice chips. Abdomen is distended, soft, tender to touch with hyperactive bowel sounds. No open wound noted. Denied pain at this time. Placed fall precaution. Awaiting room for [facility]. Will continue to care plan.
--- NOTE | 2019-05-19 19:34 | NUR ---
HAND-OFF: Report given to Manan SAHU. Endorsed plan of care.
--- NOTE | 2019-05-19 19:45 | Consultation ---
DATE OF CONSULTATION: 05/19/2019 INFECTIOUS DISEASE CONSULTATION CONSULTING PHYSICIAN: Keith Hines M.D. ATTENDING PHYSICIAN: Daniel Genao M.D. REFERRING PHYSICIAN: Amor Hopper M.D. REASON FOR CONSULTATION: Possible sepsis, history of possible pancreatitis, fevers, and leukocytosis. CHIEF COMPLAINT: The patient's chief complaint coming into the hospital is pancreatitis. HISTORY OF PRESENT ILLNESS: This is a 54-year-old male, who presents to [facility]. The patient came in with what looks like abdominal discomfort and pain. The patient had a CT scan of the abdomen and pelvis, which showed the following initially. Initially, it had findings compatible with uncomplicated acute pancreatitis. There was unusual intermediate attenuation in the portal splenic and superior mesenteric vein. 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 Findings could represent enteritis and bowel ischemia and intraperitoneal fluid and pancreatitis changes are less striking. No evidence of pancreatic necrosis. The patient was noted to have a white count of 30.2 and Infectious Disease consultation is requested. I saw the patient yesterday and placed the patient on meropenem empirically 1 gram intravenous every 8 hours. The patient today's white count is 31.2. Chest x-ray was negative for pneumonia. UA only had 0 to 2 white cells. Blood cultures are pending. The patient will be continued on meropenem for now. Case discussed with Dr. Hopper. Today, the patient feels somewhat better. However, white count is worsened. MAR was noted. Orders were noted. Notes and records were reviewed. Case was discussed with RN and Dr. Hopper. Also, the case was discussed with the patient's family. REVIEW OF SYSTEMS: Main issue coming in was abdominal discomfort and pain. Currently, he is tachycardic and had a fever earlier in the admission of 100.0 and today of 99.6. However, no other significant fever spikes.HEAD AND NECK: No head pain or neck pain. CARDIAC: No chest pain. GASTROINTESTINAL: He has abdominal discomfort and pain. GENITOURINARY: He has no Warren. No dysuria or frequency. PULMONARY: No congestion or shortness of breath. SKIN: No rash. EXTREMITIES: No pain. NEUROLOGIC: No seizures. PAST MEDICAL HISTORY: The past medical history of the patient is negative. He has no history of diabetes, hypertension, or cancer. PAST SURGICAL HISTORY: He has history of right shoulder repair. MEDICATIONS: Upon reviewing the MAR, he is on the following medications. He is on meropenem 1 gram intravenous every 8 hours. He is on acetaminophen p.r.n. He is on pantoprazole and intravenous heparin. Per protocol, he is on acetaminophen p.r.n., morphine, Zofran, lactated Ringer's, and hydromorphone. Outside medications were noted and reconciliated. ALLERGIES: He has no known drug allergies. No antibiotic allergies. SOCIAL HISTORY: Negative for smoking, alcohol, or drug abuse. FAMILY HISTORY: Positive for pancreatic cancer. PHYSICAL EXAMINATION: VITAL SIGNS: Currently, temperature 98.4, pulse rate 112, respiratory rate 13, blood pressure 160/86, saturating 90 percent, and T-max 100 and 99.6 orally today. GENERAL: Alert, responsive, and oriented x3. Weak. HEAD AND NECK: Oral exam, no thrush. Eye exam, no icterus. Normocephalic. Neck is supple. HEART: Regular. No gallop or murmur. Tachycardic. ABDOMEN: Soft. Somewhat distended. Positive bowel sounds. Some discomfort, but no rebound. LUNGS: Clear bilaterally. No rhonchi or rales. SKIN: No rash. MUSCULOSKELETAL: No effusion or septic arthritis. EXTREMITIES: Lower extremity exam, without cellulitis. PERIPHERAL VASCULAR: No gangrene. : No Warren. LINE SITES: Without phlebitis. NEUROLOGIC: Intact. Alert and oriented x3. Nonfocal. LABORATORY AND DIAGNOSTIC DATA: Laboratory data is as follows. UA had 0 to 2 white cells. Creatinine 1.6. Lactic acid 3.1. Lactic acid yesterday was 5.1, today is 3.1. White count 31.2 and hemoglobin 15.6. Blood cultures are pending. Lipase is 81. IMAGING STUDIES: Initial CT scan of the abdomen and pelvis was concerning for pancreatitis. There was uncomplicated acute pancreatitis. 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 ASSESSMENT AND PLAN: 1. The patient has possible sepsis, fevers, and leukocytosis. 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 The patient has possible pancreatitis. At this time, we will continue meropenem for polymicrobial empiric coverage and broad-spectrum antibiotic coverage for possible sepsis. Continue meropenem for possible sepsis, leukocytosis, fevers, and possible pancreatitis. Check cultures and laboratories. Chest x-ray is negative. Continue supportive care. Of note, the patient does not have necrotizing pancreatitis, it looks at this time. Continue meropenem for sepsis pending final workup. 2. Acute kidney injury with elevated creatinine. 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 4. The patient may need high level of care. I believe they are planning to do that. 5. Abdominal pain. 6. Hematology workup for thrombosis. 7. Continue supportive intensive care unit care. 8. Past medical history is otherwise negative. 9. Allergies are negative. 10. Social history is negative. 11. Family history is positive for pancreatic cancer. 12. MAR is noted. 13. Case was discussed with RN. 14. Continue treatment per primary consultants. 15. Orders were noted and entered. Keith Hines M.D. DR: WAN JOB#: [id number] CC:
--- NOTE | 2019-05-19 20:30 | NUR ---
NURSE NOTES: Get call from [facility] transfer center and talk to with Chula who is transfer staff ([phone]) and she said not available room today and awaiting for transfer.
[2019-05-19] MEDS: HYDROmorphone 1mg/ml Carpuject IVP PRN (21:34)
--- NOTE | 2019-05-19 22:00 | NUR ---
NURSE NOTES: Pt is resting on the bed and awake and alert. Family stays at bedside. No sign of acute distress noted. On running with heparin drip as ordered. Placed fall precaution. Will continue to monitor any change of condition.
[2019-05-20] VITALS (24 sets, daily range): BP systolic 109–170; BP diastolic 53–103
--- NOTE | 2019-05-20 | NUR ---
NURSE NOTES: Pt is resting on the bed and awake and alert. Family stays at bedside. On Heparin drip 17u/kg/hr. IV site intact and no sign of infiltration noted. Noted small amount bloody soft BM. MD aware. Cleaned Pt and applied lotion and cream and changed gown. Placed fall precaution. No fever noted. Will continue to monitor any change of condition.
--- NOTE | 2019-05-20 02:00 | NUR ---
NURSE NOTES: Pt is sleeping on the bed and no sign of acute cardio/respiratory distress noted. Placed fall precaution. Will continue to care plan.
[2019-05-20] MEDS: Heparin 25,000u/D5W 500ml 500 ML IV SCH ×3 (02:21→22:56)
--- NOTE | 2019-05-20 04:00 | NUR ---
NURSE NOTES: Morning care was done. Cleaned pt and applied lotion and cream. On heparin drip at 17U/kg/hr. Iv site intact and no sign of infiltration noted. Still c/o nausea sense and vomited small amount greenish color gastric juice. AM lab was done. Will continue to monitor any change of condition.
[2019-05-20] MEDS: LR 1000ml 1,000 ML IV SCH ×4 (05:04→22:50)
[2019-05-20 05:38] LABS: HEMOGLOBIN 12.1 G/DL (14.2-18.0); MEAN CORPUSCULAR VOLUME 93 FL (80-99); PLATELET COUNT 164 K/UL (150-450); RED BLOOD COUNT 3.87 M/UL (4.70-6.10); RED CELL DISTRIBUTION WIDTH 13.5 % (11.6-14.8)
[2019-05-20 05:47] LABS: WHITE BLOOD COUNT 23.7 K/UL (4.8-10.8)
[2019-05-20] MEDS ORDERED: Heparin 25,000u/D5W 500ml 500 ML IV SCH ×3 (06:00→06:15)
--- NOTE | 2019-05-20 06:00 | NUR ---
NURSE NOTES: Noted PTT result with 63. Informed Pharmacist Lala and will increase to dose to 19U/kg/hr. Will continue to monitor change of condition.
[2019-05-20 06:15] LABS: ALANINE AMINOTRANSFERASE 25 U/L (12-78); ALBUMIN 2.3 G/DL (3.4-5.0); ALBUMIN/GLOBULIN RATIO 0.5 (1.0-2.7); ALKALINE PHOSPHATASE 78 U/L (46-116); AMYLASE 16 U/L (25-115); ANION GAP 4 mmol/L (5-15); ASPARTATE AMINO TRANSFERASE 35 U/L (15-37); BLOOD UREA NITROGEN 19 mg/dL (7-18); CARBON DIOXIDE 35 MMOL/L (21-32); CHLORIDE 107 MMOL/L (98-107); CREATININE 1.1 MG/DL (0.55-1.30); POTASSIUM 3.8 MMOL/L (3.5-5.1); SODIUM 146 MMOL/L (136-145)
[2019-05-20] MEDS ORDERED: Heparin 5000 units/ml inj IV SCH (06:15)
--- NOTE | 2019-05-20 07:37 | NUR ---
HAND-OFF: Report given to LUIS ALBERTO Dawn. Pt is resting on the bed and no sign of acute distress noted.
--- NOTE | 2019-05-20 07:38 | NUR ---
NURSE NOTES: Received patient from LUIS ALBERTO Hinkle. Patient drowsy and oriented to name, place, time, and purpose. Patient sitting up in bed at this time. Patient showing no sign of acute distress. patient complaining of nausea at this time. Will administer anti-nausea medication as ordered. patient has right hand and right forearm 22 gauge peripheral IVs. The hand IV is running heparin drip at 19 units/kg/hr at this time and lactated ringers at 200mL/hr running on right forearm. Next PTT due at 1215. Will follow up. Patient denies pain in either IV site. Patient has order to transfer to [facility] for procedure. Will follow up with case technician. Will continue to monitor. Patient repositions on his own and uses urinal and ambulates to the restroom.
--- NOTE | 2019-05-20 09:30 | NUR ---
NURSE NOTES: Received call from LUIS ALBERTO Rodriguez from [facility] transfer center at 0915 regarding ordered transfer. Jennifer reported that they have been unable to contact the referring physician at this hospital. Reported that I would follow up and contact the primary physician to call about the transfer. Left message for Dr Don at 0920 regarding the need for a referring physician to call the transfer center at [facility]. Received call back at 09 from the doctor reporting that he would call the transfer center when he rounds on the patient. Left message for LUIS ALBERTO Rodriguez in [facility] transfer center reporting that Dr Don will call them once he has rounded on the patient. Will continue to follow up.
[2019-05-20] MEDS: Pantoprazole Inj IVP SCH ×2 (09:43→20:57)
--- NOTE | 2019-05-20 10:13 | Diagnostic Imaging Report ---
EXAM: XR Abdomen, 2 Views CLINICAL HISTORY: F/U TECHNIQUE: Frontal view of the abdomen/pelvis with upright view of the abdomen. COMPARISON: Abdominal x-rays dated 05/18/19 FINDINGS: Intraperitoneal space: No free air. Gastrointestinal tract: Nonobstructive, nonspecific bowel gas pattern. No evidence of pneumatosis intestinalis. Organs: Renal shadows are obscured by overlying bowel gas. No evidence of organomegaly. No suspicious calcifications in the abdomen or pelvis. Bones/joints: Unremarkable. IMPRESSION: Unremarkable abdominal x-rays.
--- NOTE | 2019-05-20 10:23 | General Progress Note ---
Assessment/Plan Problem List: (1) Abdominal pain ICD Codes: R10.9 - Unspecified abdominal pain SNOMED: 86051163 Qualifiers: Qualified Codes: R10.84 - Generalized abdominal pain (2) Acute pancreatitis ICD Codes: K85.90 - Acute pancreatitis without necrosis or infection, unspecified SNOMED: 656584986 Qualifiers: Qualified Codes: K85.90 - Acute pancreatitis without necrosis or infection, unspecified (3) Elevated bilirubin ICD Codes: R17 - Unspecified jaundice SNOMED: 01607250 Status: progressing Assessment/Plan: IVF NPO CT reviewed on heparin drip still has rectal bleed vascular surg and hematology in put appreciated decrease IVF to 100 cc repeat labs picc line placement possible TPN on Wednesday colonoscopy on Wednesday if cont to bleed pending transfer to [facility] will fu Subjective ROS Limited/Unobtainable: Yes Allergies: Coded Allergies: No Known Allergies (Unverified , 05/16/19) Objective Last 24 Hour Vital Signs Date Time Temp Pulse Resp B/P (MAP) Pulse Ox O2 Delivery O2 Flow Rate FiO2 05/20/19 08:00 99.0 128 24 162/103 (122) 98 05/20/19 07:00 91 13 147/81 (103) 98 05/20/19 06:00 99 15 150/78 (102) 97 05/20/19 05:00 125 19 124/86 (99) 96 05/20/19 04:00 97 05/20/19 04:00 98.8 96 17 146/95 (112) 98 05/20/19 04:00 Nasal Cannula 2.0 05/20/19 03:00 103 28 109/53 (71) 96 05/20/19 02:00 95 12 141/88 (105) 96 05/20/19 01:00 104 10 115/79 (91) 95 05/20/19 00:00 99.0 104 17 138/89 (105) 96 05/20/19 00:00 125 05/20/19 00:00 Nasal Cannula 2.0 05/19/19 23:00 102 14 141/73 (95) 96 05/19/19 22:00 124 21 132/95 (107) 96 05/19/19 21:00 105 20 125/101 (109) 98 05/19/19 20:12 96 Nasal Cannula 2.0 28 05/19/19 20:00 106 05/19/19 20:00 98.9 105 12 132/86 (101) 97 05/19/19 20:00 Nasal Cannula 2.0 05/19/19 19:00 105 12 131/88 (102) 96 05/19/19 18:00 114 8 133/90 (104) 95 05/19/19 17:53 98.4 05/19/19 17:00 121 16 135/97 (110) 96 05/19/19 16:00 99.0 112 13 160/86 (110) 98 05/19/19 16:00 109 05/19/19 15:00 112 12 129/88 (102) 95 05/19/19 14:00 114 20 123/90 (101) 94 05/19/19 13:00 116 22 123/90 (101) 97 05/19/19 12:00 98.2 124 19 99/65 (76) 96 05/19/19 12:00 131 05/19/19 11:00 125 12 116/88 (97) 95 Intake and Output 05/19/19 05/20/19 19:00 07:00 Intake Total 2389.538 ml 2602.980 ml Output Total 400 ml Balance 2389.538 ml 2202.980 ml Intake IV Total 2389.538 ml 2602.980 ml Output Urine Total 400 ml # Voids 2 # Bowel Movements 3 Laboratory Tests 05/19/19 14:55: Activated Partial Thromboplast Time 87H 05/20/19 04:20: Activated Partial Thromboplast Time 63H, White Blood Count 23.7*H, Red Blood Count 3.87L, Hemoglobin 12.1L, Hematocrit 36.0L, Mean Corpuscular Volume 93, Mean Corpuscular Hemoglobin 31.4H, Mean Corpuscular Hemoglobin Concent 33.8, Red Cell Distribution Width 13.5, Platelet Count 164, Mean Platelet Volume 5.2L , Neutrophils (%) (Auto) , Lymphocytes (%) (Auto) , Monocytes (%) (Auto) , Eosinophils (%) (Auto) , Basophils (%) (Auto) , Differential Total Cells Counted 100, Neutrophils % (Manual) 88H, Lymphocytes % (Manual) 6L, Monocytes % (Manual) 6, Eosinophils % (Manual) 0, Basophils % (Manual) 0, Band Neutrophils 0 , Platelet Estimate Adequate, Platelet Morphology Normal, Erythrocyte Sedimentation Rate 24H, Prothrombin Time 10.9, Prothromb Time International Ratio 1.0, Sodium Level 146H, Potassium Level 3.8, Chloride Level 107, Carbon Dioxide Level 35H, Anion Gap 4L, Blood Urea Nitrogen 19H, Creatinine 1.1, Estimat Glomerular Filtration Rate > 60, Glucose Level 128H, Lactic Acid Level 2.40H, Calcium Level 8.0L, Total Bilirubin 1.0, Aspartate Amino Transf (AST/SGOT ) 35, Alanine Aminotransferase (ALT/SGPT) 25, Alkaline Phosphatase 78, C- Reactive Protein, Quantitative 38.2H, Total Protein 6.5, Albumin 2.3L, Globulin 4.2, Albumin/Globulin Ratio 0.5L, Amylase Level 16L, Lipase 61L 05/20/19 09:25: Lactic Acid Level [Pending] Height (Feet): 5 Height (Inches): 7.00 Weight (Pounds): 178 General Appearance: alert EENT: normal ENT inspection Neck: supple Cardiovascular: bradycardia Respiratory/Chest: decreased breath sounds Abdomen: soft, hypoactive bowel sounds, tender Extremities: non-tender Christopher Gonzalez MD May 20, 2019 10:23
[2019-05-20] MEDS ORDERED: Lidocaine 1% Plain 30 ml INJ PRN (10:30)
[2019-05-20] MEDS ORDERED: Heparin1,000 units/500ml Premix(Conc:2 units/ml) IV PRN (10:30)
--- NOTE | 2019-05-20 10:39 | NUR ---
NURSE NOTES: Dr Gonzalez rounded on the patient. Received order for additional anti-nausea medication Reglan 10mg IVP Q6HR PRN. Received verbal order for PICC line placement and change of IV fluid to LR at 100mL/hr continuous IV. Orders read back, verified, and placed at this time. Received report that patient may require a GI scope on Wednesday.
--- NOTE | 2019-05-20 10:45 | NUR ---
NURSE NOTES: Lactic acid result from 0930 this morning below 2. Repeat lactic acid lab canceled per protocol.
--- NOTE | 2019-05-20 12:00 | NUR ---
NURSE NOTES: Patient resting in bed with pain level reported to be 6/10 at this time. Will follow up with pain medication per order. Patient remains oriented to name, place, time, and purpose. Patient still complaining of nausea. Will continue to administer Zofran and Reglan as ordered. Right hand and right forearm 22 gauge peripheral IV remain patent. Heparin drip running at 19 units/kg/hr at this time and lactated ringers at 100mL/hr running on right forearm. Next PTT due at 1215. Corporate Claims Examiner drawing lab at this time. No call back received from [facility] transfer center. Will follow up. Will continue to monitor.
--- NOTE | 2019-05-20 13:00 | NUR ---
NURSE NOTES: PTT lab value higher than therapeutic range. Heparin held for 30 minutes and will be restarted at a lower rate per pharmacy protocol. Will continue to monitor and follow up. Next PTT to be drawn at 1930. Will place order at this time.
--- NOTE | 2019-05-20 14:30 | NUR ---
NURSE NOTES: Report received from Mike Dawn RN. Pt is sleeping in bed. Two family members are at bedside. Alert and oriented x4. No signs of pain or discomfort. On N/C 2L. O2 sat 96-98%. No respiratory distress noted. Sinus rhythm on ekg monitor tech. Urinal at bedside. IV to right FA G22 and right hand 22G patent and asymptomatic. Heparin drip is running at 16 units/kg/hr. Bed in lowest position. Side rails up x2. Call light within reach. Will continue to monitor.
--- NOTE | 2019-05-20 16:00 | NUR ---
NURSE NOTES: Patient sleeping at this time. Will continue to monitor. Patient remains oriented to name, place, time, and purpose. Patient still complaining of nausea. Will continue to administer Zofran and Reglan as ordered. Right hand and right forearm 22 gauge peripheral IV remain patent. Heparin drip running at 16 units/kg/hr at this time and lactated ringers at 100mL/hr running on right forearm. Next PTT due at 1930. No call back received from transfer center at [facility]. Will follow up. Will continue to monitor.
--- NOTE | 2019-05-20 16:17 | General Progress Note ---
Assessment/Plan Status: progressing Assessment/Plan: This is a 54-year-old male who presented with severe abdominal pain and diarrhea first stating 8 days prior to presentation to the ED. He denies heavy alcohol use however admits that he was drinking more than usual during the holiday season. 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 His LFTs only remarkable for an elevated bilirubin of 1.8 with normal transaminases.His amylase and lipase are within normal limits, and lactic acid 1.7. His initial CT abdomen pelvis w contrast demonstrated acute uncomplicated pancreatitis and questionable SMV, portal and splenic vein thrombosis vs. flow artifact. abdominal US showed fatty liver and no gallstones or cbd dilatation. Initially admitted for acute pancreatitis. However later developed fever 100, bloody diarrhea, increased lactic acidosis to 3.8, leukocytosis 11-->22. repeat CT abdomen pelvis w contrast showed portal , splenic, and superior mesenteric vein thrombosis. Severe wall edema of the proximal jejunum. Distal jejunal and ileal dilatation without wall thickening. He was transferred to the ICU, started on heparin drip, broad spectrum antibiotics, IV fluids, IV PPI. He is hemodynamically stable. 1. 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 Acute pancreatitis. Possibly alcohol induced vs secondary to above. 3. ANDRE 4. Leukocytosis 11->30K, CXR negative 5. Fatty infiltration of the liver 6. Elevated bilirubin 1.8 7. Previous exposure to hepatitis B 8. History of testosterone injection 9. Thrombocytopenia- resolved Plan: Keep in ICU Continue on heparin drip, ptt goal 60-90 continue IVF fluids continue IV PPI BID NPO Broad spectrum antibiotics with meropenem per ID recs, blood cultures Vascular surgery, general surgery, GI, ID and hematology oncology follow up. Hypercoagulable work up per hematology/oncology: protein c/s, antithrombin iii, prothrombin gene mutation, lupus anticoag, consider Jak2 as outpatient requires anticoagulation x 3-6 months minimum stop steroid injections Awaiting transfer to [facility], spoke with transfer center x 2 today. Elevated T bili normal direct bili unlikely obstructive in nature, likely related to pancreatitis/ smv/portal thrombosis or fatty liver Trend renal function, avoid nephrotoxic medications. If worse, renal consult GI and DVT prophylaxis: Heparin drip, IV PPI I spent 75 minutes on this patient's case, and 40 mins was dedicated to critical care Critical Care Services performed include: Telemetry Review Hemodynamic measurement interpretation Laboratory data review and interpretation Radiology image review and interpretation Discussion of patient's care with ICU team, ICU Nursing staff and/or consulting services Subjective Date patient seen: May 20, 2019 Time patient seen: 11:44 ROS Limited/Unobtainable: No Constitutional: Denies: chills, fever HEENT: Denies: eye pain Cardiovascular: Denies: chest pain Respiratory: Denies: cough Gastrointestinal/Abdominal: Reports: abdomen distended, abdominal pain Neurologic/Psychiatric: Denies: anxiety Endocrine: Denies: excessive sweating Allergies: Coded Allergies: No Known Allergies (Unverified , 05/16/19) Subjective Follow up for portal, splenic, and superior mesenteric vein thrombosis, small bowel ischemia. Mild intermittent hematochezia reported, last BM at 0000 today. Otherwise tolerating heparin drip. Spoke with [facility] transfer center x 2 today, awaiting call from accepting MD to give sign out. Spoke with PCP, Dr. Underwood. Spoke with family at bedside x 2. Objective Last 24 Hour Vital Signs Date Time Temp Pulse Resp B/P (MAP) Pulse Ox O2 Delivery O2 Flow Rate FiO2 05/20/19 13:00 95 18 156/87 (110) 98 05/20/19 12:00 98.9 93 12 142/85 (104) 98 05/20/19 12:00 Nasal Cannula 2.0 05/20/19 11:00 96 15 153/100 (117) 96 05/20/19 10:00 96 18 149/95 (113) 97 05/20/19 09:00 95 11 142/82 (102) 97 05/20/19 08:00 90 05/20/19 08:00 99.0 128 24 162/103 (122) 98 05/20/19 08:00 Nasal Cannula 2.0 05/20/19 07:00 91 13 147/81 (103) 98 05/20/19 06:00 99 15 150/78 (102) 97 05/20/19 05:00 125 19 124/86 (99) 96 05/20/19 04:00 97 05/20/19 04:00 98.8 96 17 146/95 (112) 98 05/20/19 04:00 Nasal Cannula 2.0 05/20/19 03:00 103 28 109/53 (71) 96 05/20/19 02:00 95 12 141/88 (105) 96 05/20/19 01:00 104 10 115/79 (91) 95 05/20/19 00:00 99.0 104 17 138/89 (105) 96 05/20/19 00:00 125 05/20/19 00:00 Nasal Cannula 2.0 05/19/19 23:00 102 14 141/73 (95) 96 05/19/19 22:00 124 21 132/95 (107) 96 05/19/19 21:00 105 20 125/101 (109) 98 05/19/19 20:12 96 Nasal Cannula 2.0 28 05/19/19 20:00 106 05/19/19 20:00 98.9 105 12 132/86 (101) 97 05/19/19 20:00 Nasal Cannula 2.0 05/19/19 19:00 105 12 131/88 (102) 96 05/19/19 18:00 114 8 133/90 (104) 95 05/19/19 17:53 98.4 05/19/19 17:00 121 16 135/97 (110) 96 Intake and Output 05/19/19 05/20/19 19:00 07:00 Intake Total 2389.538 ml 2602.980 ml Output Total 400 ml Balance 2389.538 ml 2202.980 ml Intake IV Total 2389.538 ml 2602.980 ml Output Urine Total 400 ml # Voids 2 # Bowel Movements 3 Laboratory Tests 05/20/19 04:20: White Blood Count 23.7*H, Red Blood Count 3.87L, Hemoglobin 12.1L, Hematocrit 36.0L, Mean Corpuscular Volume 93, Mean Corpuscular Hemoglobin 31.4H, Mean Corpuscular Hemoglobin Concent 33.8, Red Cell Distribution Width 13.5, Platelet Count 164, Mean Platelet Volume 5.2L, Neutrophils (%) (Auto) , Lymphocytes (%) ( Auto) , Monocytes (%) (Auto) , Eosinophils (%) (Auto) , Basophils (%) (Auto) , Differential Total Cells Counted 100, Neutrophils % (Manual) 88H, Lymphocytes % (Manual) 6L, Monocytes % (Manual) 6, Eosinophils % (Manual) 0, Basophils % ( Manual) 0, Band Neutrophils 0, Platelet Estimate Adequate, Platelet Morphology Normal, Erythrocyte Sedimentation Rate 24H, Prothrombin Time 10.9, Prothromb Time International Ratio 1.0, Activated Partial Thromboplast Time 63H, Sodium Level 146H, Potassium Level 3.8, Chloride Level 107, Carbon Dioxide Level 35H, Anion Gap 4L, Blood Urea Nitrogen 19H, Creatinine 1.1, Estimat Glomerular Filtration Rate > 60, Glucose Level 128H, Lactic Acid Level 2.40H, Calcium Level 8.0L, Total Bilirubin 1.0, Aspartate Amino Transf (AST/SGOT) 35, Alanine Aminotransferase (ALT/SGPT) 25, Alkaline Phosphatase 78, C-Reactive Protein, Quantitative 38.2H, Total Protein 6.5, Albumin 2.3L, Globulin 4.2, Albumin/ Globulin Ratio 0.5L, Amylase Level 16L, Lipase 61L 05/20/19 09:25: Lactic Acid Level 1.60 05/20/19 12:10: Activated Partial Thromboplast Time 117H Height (Feet): 5 Height (Inches): 7.00 Weight (Pounds): 178 General Appearance: no apparent distress, alert Neck: normal alignment, supple Cardiovascular: normal rate, regular rhythm Respiratory/Chest: lungs clear, normal breath sounds Abdomen: soft, no mass, distended, other - Mild diffuse tenderness Extremities: normal range of motion, non-tender Deandre Castellanos MD May 20, 2019 16:17
[2019-05-20] MEDS ORDERED: NS 275ml ONE ×2 (16:37→16:38)
[2019-05-20] MEDS ORDERED: Tubing IV Secondary IV ONE (16:38)
[2019-05-20] MEDS: Metoclopramide 10mg/2ml Inj IVP PRN (17:17)
--- NOTE | 2019-05-20 17:21 | NUR ---
NURSE NOTES: PRN IV Dilaudid 2mg and Reglan given for abdominal pain and vomiting. Will continue to monitor.
--- NOTE | 2019-05-20 18:40 | NUR ---
HAND-OFF: Report given to Nereyda Mckeon RN.
--- NOTE | 2019-05-20 19:30 | NUR ---
HAND-OFF: Report given to LUIS ALBERTO Marcano. Patient bed in low position and call light in reach at this time. Patient sister at the bedside. [facility] called to receive information for patient regarding transfer. Information given. No subsequent call received from either [facility] or [facility] transfer center. Endorsed to follow up.
--- NOTE | 2019-05-20 19:31 | NUR ---
Received patient from LUIS ALBERTO Dawn. Pt is janine4, vss, with no acute distress. Pt is in bed with family t bedside. Patient on nurse monitoring and IV therapy with right forearm and hand 22g. Pt is 2L NC, NPO, pt uses urinal, and is resting well at this time. Lactated Ringers running at 100mL/hr due to passable fluid retention. Bed st its lowest position, call light in reach and x2 bed rails are up.
[2019-05-20] MEDS: Dyna-Hex 2% Top Sol 2oz TOPIC SCH (19:59)
--- NOTE | 2019-05-20 20:20 | NUR ---
NURSE NOTES: Dr. Lyon At bedside with family. PICC scheduled for Wednesday.
--- NOTE | 2019-05-20 20:47 | Surgery Progress Note ---
Surgery Progress Note Subjective Symptoms: improved, voiding well, pain decreased Objective Last 24 Hour Vital Signs Date Time Temp Pulse Resp B/P (MAP) Pulse Ox O2 Delivery O2 Flow Rate FiO2 05/20/19 20:00 98.1 94 14 162/88 (112) 97 05/20/19 20:00 111 05/20/19 20:00 Nasal Cannula 2.0 05/20/19 19:00 95 11 155/92 (113) 98 05/20/19 18:00 97 12 158/86 (110) 98 05/20/19 17:00 119 20 170/100 (123) 98 05/20/19 16:00 Nasal Cannula 2.0 05/20/19 16:00 98.8 97 16 159/95 (116) 97 05/20/19 15:32 106 05/20/19 15:00 93 12 161/100 (120) 97 05/20/19 14:30 Nasal Cannula 2.0 05/20/19 14:00 91 15 159/95 (116) 98 05/20/19 13:00 95 18 156/87 (110) 98 05/20/19 12:00 98.9 93 12 142/85 (104) 98 05/20/19 12:00 Nasal Cannula 2.0 05/20/19 11:00 96 15 153/100 (117) 96 05/20/19 10:00 96 18 149/95 (113) 97 05/20/19 09:00 95 11 142/82 (102) 97 05/20/19 08:00 90 05/20/19 08:00 99.0 128 24 162/103 (122) 98 05/20/19 08:00 Nasal Cannula 2.0 05/20/19 07:00 91 13 147/81 (103) 98 05/20/19 06:00 99 15 150/78 (102) 97 05/20/19 05:00 125 19 124/86 (99) 96 05/20/19 04:00 97 05/20/19 04:00 98.8 96 17 146/95 (112) 98 05/20/19 04:00 Nasal Cannula 2.0 05/20/19 03:00 103 28 109/53 (71) 96 05/20/19 02:00 95 12 141/88 (105) 96 05/20/19 01:00 104 10 115/79 (91) 95 05/20/19 00:00 99.0 104 17 138/89 (105) 96 05/20/19 00:00 125 05/20/19 00:00 Nasal Cannula 2.0 05/19/19 23:00 102 14 141/73 (95) 96 05/19/19 22:00 124 21 132/95 (107) 96 05/19/19 21:00 105 20 125/101 (109) 98 I&O Intake and Output 05/19/19 05/20/19 19:00 07:00 Intake Total 2389.538 ml 2602.980 ml Output Total 400 ml Balance 2389.538 ml 2202.980 ml Intake IV Total 2389.538 ml 2602.980 ml Output Urine Total 400 ml # Voids 2 # Bowel Movements 3 Cardiovascular: RSR Respiratory: clear Abdomen: soft, distended, tenderness - improved , decreased bowel sounds Extremities: no edema, no tenderness, no cyanosis Laboratory Tests Test 05/20/19 04:20 05/20/19 09:25 05/20/19 12:10 05/20/19 19:45 White Blood Count 23.7 K/UL (4.8-10.8) *H Red Blood Count 3.87 M/UL (4.70-6.10) L Hemoglobin 12.1 G/DL (14.2-18.0) L Hematocrit 36.0 % (42.0-52.0) L Mean Corpuscular Volume 93 FL (80-99) Mean Corpuscular Hemoglobin 31.4 PG (27.0-31.0) H Mean Corpuscular Hemoglobin Concent 33.8 G/DL (32.0-36.0) Red Cell Distribution Width 13.5 % (11.6-14.8) Platelet Count 164 K/UL (150-450) Mean Platelet Volume 5.2 FL (6.5-10.1) L Neutrophils (%) (Auto) % (45.0-75.0) Lymphocytes (%) (Auto) % (20.0-45.0) Monocytes (%) (Auto) % (1.0-10.0) Eosinophils (%) (Auto) % (0.0-3.0) Basophils (%) (Auto) % (0.0-2.0) Differential Total Cells Counted 100 Neutrophils % (Manual) 88 % (45-75) H Lymphocytes % (Manual) 6 % (20-45) L Monocytes % (Manual) 6 % (1-10) Eosinophils % (Manual) 0 % (0-3) Basophils % (Manual) 0 % (0-2) Band Neutrophils 0 % (0-8) Platelet Estimate Adequate Platelet Morphology Normal Erythrocyte Sedimentation Rate 24 MM/HR (0-20) H Prothrombin Time 10.9 SEC (9.30-11.50) Prothromb Time International Ratio 1.0 (0.9-1.1) Activated Partial Thromboplast Time 63 SEC (23-33) H 117 SEC (23-33) H Pending Sodium Level 146 MMOL/L (136-145) H Potassium Level 3.8 MMOL/L (3.5-5.1) Chloride Level 107 MMOL/L (98-107) Carbon Dioxide Level 35 MMOL/L (21-32) H Anion Gap 4 mmol/L (5-15) L Blood Urea Nitrogen 19 mg/dL (7-18) H Creatinine 1.1 MG/DL (0.55-1.30) Estimat Glomerular Filtration Rate > 60 mL/min (>60) Glucose Level 128 MG/DL (74-106) H Lactic Acid Level 2.40 mmol/L (0.4-2.0) H 1.60 mmol/L (0.66-2.22) Calcium Level 8.0 MG/DL (8.5-10.1) L Total Bilirubin 1.0 MG/DL (0.2-1.0) Aspartate Amino Transf (AST/SGOT) 35 U/L (15-37) Alanine Aminotransferase (ALT/SGPT) 25 U/L (12-78) Alkaline Phosphatase 78 U/L (46-116) C-Reactive Protein, Quantitative 38.2 mg/dL (0.00-0.90) H Total Protein 6.5 G/DL (6.4-8.2) Albumin 2.3 G/DL (3.4-5.0) L Globulin 4.2 g/dL Albumin/Globulin Ratio 0.5 (1.0-2.7) L Amylase Level 16 U/L (25-115) L Lipase 61 U/L (73-393) L Plan Problems: (1) Elevated bilirubin Assessment & Plan: Elevated T bili normal direct bili unlikely obstructive in nature No bleeding -initially but now noted to have bleeding last night and a stool. Likely etiology Pending hepatitis panel -reviewed prior from outpatient setting discussed with PCP and primary Trend labs (2) Abdominal pain Assessment & Plan: Generalized abdominal pain 10 out of 10 Clinically mildly distended nontender may be some discomfort on palpation Afebrile hemodynamic stable CT scan reviewed as below No acute surgical intervention indicated N.p.o. IV fluids IV antibiotics Trend labs Acute deterioration last night. 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 Arteries not obstructed with good inflow. Bowel edema noted distended tender bloody bowel movements Continue heparin drip Will follow with serial abdominal exams Discussed with PCP family patient and medical teams improved today on heparin gtt discussed case with family, patient, pcp, medical team leukocytosis trending down lactic acidosis resolved overall improved today getting better slowly seems to have turned the corner out of bed and ambulate We will follow with recommendations Thank you for let me participate in patient's care (3) Acute pancreatitis Assessment & Plan: There is infiltration of the peripancreatic fat and slight indistinctness of the pancreatic margins, particularly in the region of the head and uncinate process. No discrete fluid collections are demonstrated. The pancreas enhances normally. Intrahepatic portal vein radicals and the hepatic veins enhance normally. However, the main portal vein, splenic vein, superior mesenteric vein demonstrate low-attenuation than would be expected with normal enhancement, although a higher in attenuation than would be expected if thrombosed. Also, collateral veins are seen surrounding the main portal vein suggestive of cavernous transformation The liver demonstrates diffuse mild hypoattenuation, consistent with fatty change. No focal abnormalities. The gallbladder is unremarkable. The spleen, adrenals, kidneys are unremarkable. No pelvic mass or adenopathy. The prostate is enlarged. The GI tract is well opacified. The distal esophagus, stomach, duodenum are unremarkable. There is no evidence of diverticulosis or diverticulitis. The appendix is normal. No small bowel distention or small bowel wall thickening. No free or loculated intraperitoneal gas or fluid. The included lung bases are clear. The bones are unremarkable except for degenerative changes of the lumbosacral junction.. Impression: Findings compatible with uncomplicated acute pancreatitis Unusual intermediate attenuation of the portal splenic veins and superior mesenteric vein. Attenuation is lower than expected normal enhancement but somewhat higher than would be expected in thrombosis. Possibly representing flow artifact, although the presence of periportal collaterals does suggest thrombosis. Recommend duplex sonography to confirm Again demonstrated is low attenuation of the main portal vein, the splenic vein, and the superior mesenteric vein, more striking currently than previously , with a fairly definite filling defect in the main superior mesenteric vein. Numerous venous collaterals are seen in the retroperitoneum as well as evidence of cavernous periportal collaterals . The celiac axis, superior mesenteric artery, and inferior mesenteric artery are all patent. There is interim development of severe wall edema involving the proximal jejunum. Benign pneumatosis. More distally, the jejunum is dilated but the wall is not thickened. There is gradual transition to normal caliber small bowel even farther distally. The appendix is normal. The colon is upper limits of normal in caliber proximally, filled with liquid contrast, no definite wall thickening. No evidence of diverticulosis or diverticulitis. Interim development of free intraperitoneal fluid, seen within the pelvis, the mesenteric root, bilateral paracolic gutters, and surrounding the liver. Previously demonstrated pancreatic edema and peripancreatic inflammatory changes are somewhat less striking than evident previously. There is normal enhancement of the pancreas. Normal caliber pancreatic duct. The gallbladder is filled with dense contents, probably excreted contrast The liver demonstrates diffuse and patchy hypoattenuation, consistent with fatty change. The spleen, adrenals, kidneys are unremarkable. No retroperitoneal or mesenteric mass or adenopathy. The prostate is enlarged. The bladder is unremarkable. No pelvic mass or adenopathy. Incompletely descended left testicle is noted. The bones are unremarkable. The included lung bases demonstrate atelectatic changes. 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 Presence of periportal and retroperitoneal collaterals suggests that this may be an acute on chronic process Severe wall edema of the proximal jejunum. Distal jejunal and ileal dilatation without wall thickening. Findings most likely represent enteritis secondary bowel ischemia secondary to the above Interim development of free intraperitoneal fluid, likely secondary to the above Pancreatitis changes are somewhat less striking than evident on the prior exam. No evidence of pancreatic necrosis Fatty liver Prostatomegaly Pulmonary critical dependent atelectatic changes Gómez Lyon May 20, 2019 20:47
[2019-05-20] MEDS: HYDROmorphone 1mg/ml Carpuject IVP PRN (20:58)
--- NOTE | 2019-05-20 23:18 | NUR ---
NURSE NOTES: Pt had one small BM. Dark red, tar like, and thick liquid. Pt used bedside commode.
[2019-05-21] VITALS (25 sets, daily range): BP systolic 137–190; BP diastolic 81–110
[2019-05-21] MEDS: Metoclopramide 10mg/2ml Inj IVP PRN ×2 (00:08→06:13)
--- NOTE | 2019-05-21 01:35 | NUR ---
NURSE NOTES: Patient c/o urine retention. Bladder scanner results are 0mL in bladder.
--- NOTE | 2019-05-21 04:34 | NUR ---
NURSE NOTES: Patient sleeping with family at bedside.
[2019-05-21 06:07] LABS: HEMATOCRIT 33.1 % (42.0-52.0); HEMOGLOBIN 11.2 G/DL (14.2-18.0); MEAN CORPUSCULAR VOLUME 93 FL (80-99); PLATELET COUNT 151 K/UL (150-450); RED BLOOD COUNT 3.55 M/UL (4.70-6.10); RED CELL DISTRIBUTION WIDTH 13.5 % (11.6-14.8); WHITE BLOOD COUNT 21.4 K/UL (4.8-10.8)
--- NOTE | 2019-05-21 06:28 | NUR ---
NURSE NOTES: Chelsea called to report PTT of 76. No change on the Heparin drip. Chelsea requested next PTT to be drawn 05/22/19 at 0400. Charge nurse notified.
[2019-05-21 06:30] LABS: ALANINE AMINOTRANSFERASE 23 U/L (12-78); ALBUMIN 2.1 G/DL (3.4-5.0); ALBUMIN/GLOBULIN RATIO 0.5 (1.0-2.7); ALKALINE PHOSPHATASE 71 U/L (46-116); AMYLASE 22 U/L (25-115); ANION GAP 3 mmol/L (5-15); ASPARTATE AMINO TRANSFERASE 31 U/L (15-37); BLOOD UREA NITROGEN 14 mg/dL (7-18); CALCIUM 7.8 MG/DL (8.5-10.1); CARBON DIOXIDE 35 MMOL/L (21-32); CHLORIDE 107 MMOL/L (98-107); POTASSIUM 3.9 MMOL/L (3.5-5.1); SODIUM 145 MMOL/L (136-145)
--- NOTE | 2019-05-21 07:15 | NUR ---
HAND-OFF: Report given to LUIS ALBERTO Dawn.
--- NOTE | 2019-05-21 07:27 | NUR ---
NURSE NOTES: Called LUIS ALBERTO Rodriguez at [facility] transfer center at 0715. Received report that Dr Don did call and speak with the transfer center regarding this patient yesterday, and they are currently waiting for the vascular surgeon to accept the patient. Jennifer reported that she would page the vascular surgeon and follow up this morning. Awaiting call back at this time. Called to follow up with [facility] transfer center at 0724. Received report that there is still currently no bed available.
--- NOTE | 2019-05-21 07:28 | NUR ---
NURSE NOTES: Received patient from LUIS ALBERTO Marcano. Patient sleeping at this time with no sign of acute distress. Patient blood pressure elevated at 151/94 at this time. Patient showing sinus rhythm on the desk monitor at this time. Patient on 2L NC with SpO2 98% at this time. Patient remains NPO except meds and ice chips. Patient continues to have black tarry/bloody stool and nausea/vomiting. Will notify Dr Gonzalez when he rounds on the patient. Patient reported to have stool x1 overnight. Patient voids using urinal. urinal at the bedside. urine dark jessa in color. Patient skin intact at this time. Patient has right forearm 20 gauge peripheral IV and right forearm 22 gauge peripheral IV. Right Hand IV running heparin drip at 16units/kg/hr and right forearm IV running lactated ringers at 100mL/hr at this time. Both IV patent, asymptomatic, and dressing intact at this time. Patient bed in low position with call light in reach. Family at the bedside. Will follow up and administer pain medication and anti-nausea medication as ordered as needed. patient has transfer order for [facility] or [facility] for higher level of care. Will follow up with transfer center for both hospitals this morning.
--- NOTE | 2019-05-21 07:54 | General Progress Note ---
Assessment/Plan Problem List: (1) Abdominal pain ICD Codes: R10.9 - Unspecified abdominal pain SNOMED: 97108397 Qualifiers: Qualified Codes: R10.84 - Generalized abdominal pain (2) Acute pancreatitis ICD Codes: K85.90 - Acute pancreatitis without necrosis or infection, unspecified SNOMED: 366023598 Qualifiers: Qualified Codes: K85.90 - Acute pancreatitis without necrosis or infection, unspecified (3) Elevated bilirubin ICD Codes: R17 - Unspecified jaundice SNOMED: 88243591 Status: progressing Assessment/Plan: IVF NPO CT reviewed on heparin drip still has rectal bleed vascular surg and hematology in put appreciated IVF 100 cc repeat labs picc line placement pending possible TPN on Wednesday add colace and miralax pending transfer to [facility] will fu Subjective ROS Limited/Unobtainable: Yes Allergies: Coded Allergies: No Known Allergies (Unverified , 05/16/19) Objective Last 24 Hour Vital Signs Date Time Temp Pulse Resp B/P (MAP) Pulse Ox O2 Delivery O2 Flow Rate FiO2 05/21/19 07:00 92 11 151/94 (113) 97 05/21/19 06:44 98.4 05/21/19 06:00 98.4 109 19 165/110 (128) 99 05/21/19 05:00 83 10 151/96 (114) 99 05/21/19 04:00 89 05/21/19 04:00 Nasal Cannula 2.0 05/21/19 04:00 90 11 137/81 (99) 98 05/21/19 04:00 90 11 98 05/21/19 03:00 98.2 91 15 167/85 (112) 96 05/21/19 02:00 92 13 158/92 (114) 99 05/21/19 01:00 95 12 148/87 (107) 98 05/21/19 00:00 84 17 168/92 (117) 98 05/21/19 00:00 Nasal Cannula 2.0 05/20/19 23:00 98.6 88 16 148/92 (110) 98 05/20/19 22:00 91 14 150/91 (110) 97 05/20/19 21:28 98.1 05/20/19 21:00 117 18 161/95 (117) 96 05/20/19 20:50 95 Nasal Cannula 2.0 28 05/20/19 20:00 98.1 94 14 162/88 (112) 97 05/20/19 20:00 111 05/20/19 20:00 Nasal Cannula 2.0 05/20/19 19:00 95 11 155/92 (113) 98 05/20/19 18:00 97 12 158/86 (110) 98 05/20/19 17:00 119 20 170/100 (123) 98 05/20/19 16:00 Nasal Cannula 2.0 05/20/19 16:00 98.8 97 16 159/95 (116) 97 05/20/19 15:32 106 05/20/19 15:00 93 12 161/100 (120) 97 05/20/19 14:30 Nasal Cannula 2.0 05/20/19 14:00 91 15 159/95 (116) 98 05/20/19 13:00 95 18 156/87 (110) 98 05/20/19 12:00 98.9 93 12 142/85 (104) 98 05/20/19 12:00 Nasal Cannula 2.0 05/20/19 11:00 96 15 153/100 (117) 96 05/20/19 10:00 96 18 149/95 (113) 97 05/20/19 09:00 95 11 142/82 (102) 97 05/20/19 08:00 90 05/20/19 08:00 99.0 128 24 162/103 (122) 98 05/20/19 08:00 Nasal Cannula 2.0 Intake and Output 05/20/19 05/21/19 19:00 07:00 Intake Total 2145.503 ml 1300.9131 ml Output Total 485 ml 570 ml Balance 1660.503 ml 730.9131 ml Intake IV Total 2145.503 ml 1300.9131 ml Output Urine Total 450 ml 535 ml Stool Total 5 ml Emesis 35 ml 30 ml # Voids 1 3 # Bowel Movements 3 2 Laboratory Tests 05/20/19 09:25: Lactic Acid Level 1.60 05/20/19 12:10: Activated Partial Thromboplast Time 117H 05/20/19 19:45: Activated Partial Thromboplast Time 72H 05/21/19 05:40: Activated Partial Thromboplast Time 76H, White Blood Count 21.4H, Red Blood Count 3.55L, Hemoglobin 11.2L, Hematocrit 33.1L, Mean Corpuscular Volume 93, Mean Corpuscular Hemoglobin 31.4H, Mean Corpuscular Hemoglobin Concent 33.7, Red Cell Distribution Width 13.5, Platelet Count 151, Mean Platelet Volume 6.1L , Neutrophils (%) (Auto) , Lymphocytes (%) (Auto) , Monocytes (%) (Auto) , Eosinophils (%) (Auto) , Basophils (%) (Auto) , Neutrophils % (Manual) [Pending] , Lymphocytes % (Manual) [Pending], Platelet Estimate [Pending], Platelet Morphology [Pending], Sodium Level 145, Potassium Level 3.9, Chloride Level 107 , Carbon Dioxide Level 35H, Anion Gap 3L, Blood Urea Nitrogen 14, Creatinine 1.0 , Estimat Glomerular Filtration Rate > 60, Glucose Level 124H, Calcium Level 7.8L, Total Bilirubin 1.0, Aspartate Amino Transf (AST/SGOT) 31, Alanine Aminotransferase (ALT/SGPT) 23, Alkaline Phosphatase 71, Total Protein 6.0L, Albumin 2.1L, Globulin 3.9, Albumin/Globulin Ratio 0.5L, Amylase Level 22L, Lipase 121 Height (Feet): 5 Height (Inches): 7.00 Weight (Pounds): 178 General Appearance: alert EENT: normal ENT inspection Neck: supple Cardiovascular: normal rate Respiratory/Chest: lungs clear Abdomen: hypoactive bowel sounds, tender Extremities: non-tender Christopher Gonzalez MD May 21, 2019 07:54
[2019-05-21] MEDS ORDERED: Hydrocortisone 25mg supp RECTAL SCH (09:00)
[2019-05-21] MEDS: Docusate 100mg cap ORAL SCH ×2 (09:00→18:09)
[2019-05-21] MEDS: LR 1000ml 1,000 ML IV SCH ×2 (09:14→18:09)
[2019-05-21] MEDS: Pantoprazole Inj IVP SCH ×2 (09:15→21:05)
--- NOTE | 2019-05-21 10:20 | NUR ---
NURSE NOTES: Spoke with Dr Lyon in person. He reported that he would speak with [facility] transfer center regarding patient's transfer to higher level of care at the request of charge nurse Jennifer [place]. Transfer center RN, Jennifer, given Dr Lyon's phone number.
--- NOTE | 2019-05-21 10:57 | Surgery Progress Note ---
Surgery Progress Note Subjective Symptoms: improved, voiding well, passing flatus, BM, pain decreased Additional Comments bm loose with dark color/blood h/h trending labs improving no n/v/f/c ambulatory Objective Last 24 Hour Vital Signs Date Time Temp Pulse Resp B/P (MAP) Pulse Ox O2 Delivery O2 Flow Rate FiO2 05/21/19 07:50 96 Nasal Cannula 2.0 28 05/21/19 07:00 92 11 151/94 (113) 97 05/21/19 06:44 98.4 05/21/19 06:00 98.4 109 19 165/110 (128) 99 05/21/19 05:00 83 10 151/96 (114) 99 05/21/19 04:00 89 05/21/19 04:00 Nasal Cannula 2.0 05/21/19 04:00 90 11 137/81 (99) 98 05/21/19 04:00 90 11 98 05/21/19 03:00 98.2 91 15 167/85 (112) 96 05/21/19 02:00 92 13 158/92 (114) 99 05/21/19 01:00 95 12 148/87 (107) 98 05/21/19 00:00 84 17 168/92 (117) 98 05/21/19 00:00 Nasal Cannula 2.0 05/20/19 23:00 98.6 88 16 148/92 (110) 98 05/20/19 22:00 91 14 150/91 (110) 97 05/20/19 21:28 98.1 05/20/19 21:00 117 18 161/95 (117) 96 05/20/19 20:50 95 Nasal Cannula 2.0 28 05/20/19 20:00 98.1 94 14 162/88 (112) 97 05/20/19 20:00 111 05/20/19 20:00 Nasal Cannula 2.0 05/20/19 19:00 95 11 155/92 (113) 98 05/20/19 18:00 97 12 158/86 (110) 98 05/20/19 17:00 119 20 170/100 (123) 98 05/20/19 16:00 Nasal Cannula 2.0 05/20/19 16:00 98.8 97 16 159/95 (116) 97 05/20/19 15:32 106 05/20/19 15:00 93 12 161/100 (120) 97 05/20/19 14:30 Nasal Cannula 2.0 05/20/19 14:00 91 15 159/95 (116) 98 05/20/19 13:00 95 18 156/87 (110) 98 05/20/19 12:00 98.9 93 12 142/85 (104) 98 05/20/19 12:00 Nasal Cannula 2.0 05/20/19 11:00 96 15 153/100 (117) 96 I&O Intake and Output 05/20/19 05/21/19 19:00 07:00 Intake Total 2145.503 ml 1300.9131 ml Output Total 485 ml 570 ml Balance 1660.503 ml 730.9131 ml Intake IV Total 2145.503 ml 1300.9131 ml Output Urine Total 450 ml 535 ml Stool Total 5 ml Emesis 35 ml 30 ml # Voids 1 3 # Bowel Movements 3 2 Cardiovascular: RSR Respiratory: clear Abdomen: soft, distended, non-tender, present bowel sounds Extremities: no edema, no tenderness, no cyanosis Laboratory Tests Test 05/20/19 12:10 05/20/19 19:45 05/21/19 05:40 Activated Partial Thromboplast Time 117 SEC (23-33) H 72 SEC (23-33) H 76 SEC (23-33) H White Blood Count 21.4 K/UL (4.8-10.8) H Red Blood Count 3.55 M/UL (4.70-6.10) L Hemoglobin 11.2 G/DL (14.2-18.0) L Hematocrit 33.1 % (42.0-52.0) L Mean Corpuscular Volume 93 FL (80-99) Mean Corpuscular Hemoglobin 31.4 PG (27.0-31.0) H Mean Corpuscular Hemoglobin Concent 33.7 G/DL (32.0-36.0) Red Cell Distribution Width 13.5 % (11.6-14.8) Platelet Count 151 K/UL (150-450) Mean Platelet Volume 6.1 FL (6.5-10.1) L Neutrophils (%) (Auto) % (45.0-75.0) Lymphocytes (%) (Auto) % (20.0-45.0) Monocytes (%) (Auto) % (1.0-10.0) Eosinophils (%) (Auto) % (0.0-3.0) Basophils (%) (Auto) % (0.0-2.0) Differential Total Cells Counted 100 Neutrophils % (Manual) 86 % (45-75) H Lymphocytes % (Manual) 6 % (20-45) L Monocytes % (Manual) 7 % (1-10) Eosinophils % (Manual) 1 % (0-3) Basophils % (Manual) 0 % (0-2) Band Neutrophils 0 % (0-8) Platelet Estimate Adequate Platelet Morphology Normal Polychromasia 1+ Hypochromasia 1+ Sodium Level 145 MMOL/L (136-145) Potassium Level 3.9 MMOL/L (3.5-5.1) Chloride Level 107 MMOL/L (98-107) Carbon Dioxide Level 35 MMOL/L (21-32) H Anion Gap 3 mmol/L (5-15) L Blood Urea Nitrogen 14 mg/dL (7-18) Creatinine 1.0 MG/DL (0.55-1.30) Estimat Glomerular Filtration Rate > 60 mL/min (>60) Glucose Level 124 MG/DL (74-106) H Calcium Level 7.8 MG/DL (8.5-10.1) L Total Bilirubin 1.0 MG/DL (0.2-1.0) Aspartate Amino Transf (AST/SGOT) 31 U/L (15-37) Alanine Aminotransferase (ALT/SGPT) 23 U/L (12-78) Alkaline Phosphatase 71 U/L (46-116) Total Protein 6.0 G/DL (6.4-8.2) L Albumin 2.1 G/DL (3.4-5.0) L Globulin 3.9 g/dL Albumin/Globulin Ratio 0.5 (1.0-2.7) L Amylase Level 22 U/L (25-115) L Lipase 121 U/L (73-393) Plan Problems: (1) Elevated bilirubin Assessment & Plan: Elevated T bili normal direct bili unlikely obstructive in nature No bleeding -initially but now noted to have bleeding last night and a stool. Likely etiology Pending hepatitis panel -reviewed prior from outpatient setting discussed with PCP and primary Trend labs (2) Abdominal pain Assessment & Plan: Generalized abdominal pain 10 out of 10 Clinically mildly distended nontender may be some discomfort on palpation Afebrile hemodynamic stable CT scan reviewed as below No acute surgical intervention indicated N.p.o. okay for ice chips hold on diet IV fluids IV antibiotics Trend labs Acute deterioration last night. 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 Arteries not obstructed with good inflow. Bowel edema noted distended tender bloody bowel movements Continue heparin drip Will follow with serial abdominal exams Discussed with PCP family patient and medical teams improved today on heparin gtt discussed case with family, patient, pcp, medical team leukocytosis trending down lactic acidosis resolved overall improved today getting better slowly seems to have turned the corner out of bed and ambulate We will follow with recommendations Thank you for let me participate in patient's care (3) Acute pancreatitis Assessment & Plan: There is infiltration of the peripancreatic fat and slight indistinctness of the pancreatic margins, particularly in the region of the head and uncinate process. No discrete fluid collections are demonstrated. The pancreas enhances normally. Intrahepatic portal vein radicals and the hepatic veins enhance normally. However, the main portal vein, splenic vein, superior mesenteric vein demonstrate low-attenuation than would be expected with normal enhancement, although a higher in attenuation than would be expected if thrombosed. Also, collateral veins are seen surrounding the main portal vein suggestive of cavernous transformation The liver demonstrates diffuse mild hypoattenuation, consistent with fatty change. No focal abnormalities. The gallbladder is unremarkable. The spleen, adrenals, kidneys are unremarkable. No pelvic mass or adenopathy. The prostate is enlarged. The GI tract is well opacified. The distal esophagus, stomach, duodenum are unremarkable. There is no evidence of diverticulosis or diverticulitis. The appendix is normal. No small bowel distention or small bowel wall thickening. No free or loculated intraperitoneal gas or fluid. The included lung bases are clear. The bones are unremarkable except for degenerative changes of the lumbosacral junction.. Impression: Findings compatible with uncomplicated acute pancreatitis Unusual intermediate attenuation of the portal splenic veins and superior mesenteric vein. Attenuation is lower than expected normal enhancement but somewhat higher than would be expected in thrombosis. Possibly representing flow artifact, although the presence of periportal collaterals does suggest thrombosis. Recommend duplex sonography to confirm Again demonstrated is low attenuation of the main portal vein, the splenic vein, and the superior mesenteric vein, more striking currently than previously , with a fairly definite filling defect in the main superior mesenteric vein. Numerous venous collaterals are seen in the retroperitoneum as well as evidence of cavernous periportal collaterals . The celiac axis, superior mesenteric artery, and inferior mesenteric artery are all patent. There is interim development of severe wall edema involving the proximal jejunum. Benign pneumatosis. More distally, the jejunum is dilated but the wall is not thickened. There is gradual transition to normal caliber small bowel even farther distally. The appendix is normal. The colon is upper limits of normal in caliber proximally, filled with liquid contrast, no definite wall thickening. No evidence of diverticulosis or diverticulitis. Interim development of free intraperitoneal fluid, seen within the pelvis, the mesenteric root, bilateral paracolic gutters, and surrounding the liver. Previously demonstrated pancreatic edema and peripancreatic inflammatory changes are somewhat less striking than evident previously. There is normal enhancement of the pancreas. Normal caliber pancreatic duct. The gallbladder is filled with dense contents, probably excreted contrast The liver demonstrates diffuse and patchy hypoattenuation, consistent with fatty change. The spleen, adrenals, kidneys are unremarkable. No retroperitoneal or mesenteric mass or adenopathy. The prostate is enlarged. The bladder is unremarkable. No pelvic mass or adenopathy. Incompletely descended left testicle is noted. The bones are unremarkable. The included lung bases demonstrate atelectatic changes. 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 Presence of periportal and retroperitoneal collaterals suggests that this may be an acute on chronic process Severe wall edema of the proximal jejunum. Distal jejunal and ileal dilatation without wall thickening. Findings most likely represent enteritis secondary bowel ischemia secondary to the above Interim development of free intraperitoneal fluid, likely secondary to the above Pancreatitis changes are somewhat less striking than evident on the prior exam. No evidence of pancreatic necrosis Fatty liver Prostatomegaly Pulmonary critical dependent atelectatic changes Gómez Lyon May 21, 2019 10:57
--- NOTE | 2019-05-21 11:00 | NUR ---
NURSE NOTES: Family asked for status update regarding transfer to [facility]. Notified them that the surgeon, Dr Lyon, is going to speak with the transfer center and we are awaiting news from [facility] at this time.
--- NOTE | 2019-05-21 11:39 | Hematology/Onc Progress Note ---
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, patent SMA YANNI celiac artery -- in this particular patient, given young age, likely related testosterone injection, and/or other hypercoag disorder --> have sent off hypercoag panel: protein c/s, antithrombin iii, prothrombin gene mutation, lupus anticoag, consider Jak2 as outpatient, may be a early manifestation of a MPD --> in addition, agree with vascular, surgery, requires anticoagulation x 3-6 months minimum --> stop steriod injections at this time --> okay for now to continue heparin gtt, is in the icu, transition to eliquis or xarelto --> Also consider thrombectomy as per vascular/IR --> Goals of anticoagulation therapy are for PV recanalization or prevention of thrombus occlusion, andthus preventing or delaying portal hypertension complications. --> I gave him my office address, absolutely has to f/u to review hypercoag w/u and further recs in re to any further malignancy w/u as needed # Leukocytosis wcb 11K and normal renal functions --> wbc trend 11-->>30k-->21.4 --> trend for improvement as needed --> id evaluation r/o infection # Elevated bilirubin --> Elevated T bili normal direct bili unlikely obstructive in nature --> likely related to pancreatitis v smv/portal thrombosis # Abdominal pain Generalized abdominal pain 10 out of 10 --> afebrile, scan reviewed, no acute surgical intervention indicated --> reviewed by Camron # Dehydration --> continue on ivf # hx of alcohol use and hormone testosterone injections --> discontinue both # Dvt ppx heparin gtt Appreciate consultation and nay Rn Subjective Allergies: Coded Allergies: No Known Allergies (Unverified , 05/16/19) Subjective 05/21: icu, on heparin drip, elevated bp, pending transfer [facility] Objective Objective Current Medications Medications (Trade) Dose Ordered Sig/Tonie Route PRN Reason Start Time Stop Time Status Last Admin Dose Admin Acetaminophen (Tylenol) 650 mg Q4H PRN ORAL fever 05/18/19 11:49 06/17/19 11:48 Chlorhexidine Gluconate (Cee-Hex 2%) 1 applic DAILY@1999 TOPIC 05/20/19 20:00 06/19/19 19:59 Dextrose (Dextrose 50%) 25 ml Q30M PRN IV Hypoglycemia 05/18/19 11:45 06/15/19 20:14 Dextrose (Dextrose 50%) 50 ml Q30M PRN IV Hypoglycemia 05/18/19 11:45 06/15/19 20:14 Diphenhydramine HCl (Benadryl) 25 mg Q6H PRN ORAL Itching/Pruritis 05/18/19 11:49 06/17/19 11:48 Docusate Sodium (Colace) 100 mg TWICE A DAY ORAL 05/21/19 09:00 06/20/19 08:59 Heparin Sodium/ Dextrose 500 ml @ 25.836 mls/ hr ADJUST PER PROTOCOL IV 05/20/19 13:30 06/17/19 18:39 05/20/19 22:56 Heparin Sodium/ Sodium Chloride (Heparin 1000 units/500ml Premix) 1,000 unit ONCE PRN IV PICC LINE 05/20/19 10:30 05/22/19 10:29 Hydromorphone HCl (Dilaudid) 1 mg Q3H PRN IVP For Pain 4-6 05/18/19 11:44 05/25/19 11:43 05/20/19 20:58 Hydromorphone HCl (Dilaudid) 2 mg Q3H PRN IVP Severe Pain (Pain Scale 7-10) 05/18/19 11:44 05/25/19 11:43 05/21/19 09:15 Lactated Ringer's 1,000 ml @ 100 mls/hr Q10H IV 05/20/19 12:30 06/17/19 12:29 05/21/19 09:14 Lidocaine HCl (Xylocaine 1% 30ml) 30 ml ONCE PRN INJ PICC line 05/20/19 10:30 05/22/19 10:29 Meropenem 1 gm/ Sodium Chloride 100 ml @ 200 mls/hr Q8HR IVPB 05/18/19 15:00 05/23/19 14:59 05/21/19 06:13 Metoclopramide HCl (Reglan) 10 mg Q6H PRN IVP Nausea & Vomiting 05/20/19 10:45 06/19/19 10:44 05/21/19 06:13 Morphine Sulfate (Morphine Sulfate) 1 mg Q3H PRN IVP pain -3 05/18/19 11:49 05/25/19 11:48 Ondansetron HCl (Zofran) 4 mg Q6H PRN IVP Nausea & Vomiting 05/18/19 11:49 06/17/19 11:48 05/21/19 03:10 Pantoprazole (Protonix) 40 mg EVERY 12 HOURS IVP 05/18/19 21:00 06/17/19 20:59 05/21/19 09:15 Polyethylene Glycol (Miralax) 17 gm BEDTIME ORAL 05/21/19 21:00 06/20/19 20:59 Last 24 Hour Vital Signs Date Time Temp Pulse Resp B/P (MAP) Pulse Ox O2 Delivery O2 Flow Rate FiO2 05/21/19 11:00 87 11 183/98 (126) 97 05/21/19 10:00 88 14 185/82 (116) 97 05/21/19 09:00 93 10 171/86 (114) 97 05/21/19 08:00 99.3 85 10 171/93 (119) 98 05/21/19 08:00 Nasal Cannula 2.0 05/21/19 07:50 96 Nasal Cannula 2.0 28 05/21/19 07:00 92 11 151/94 (113) 97 05/21/19 06:44 98.4 05/21/19 06:00 98.4 109 19 165/110 (128) 99 05/21/19 05:00 83 10 151/96 (114) 99 05/21/19 04:00 89 05/21/19 04:00 Nasal Cannula 2.0 05/21/19 04:00 90 11 137/81 (99) 98 05/21/19 04:00 90 11 98 05/21/19 03:00 98.2 91 15 167/85 (112) 96 05/21/19 02:00 92 13 158/92 (114) 99 05/21/19 01:00 95 12 148/87 (107) 98 05/21/19 00:00 84 17 168/92 (117) 98 05/21/19 00:00 Nasal Cannula 2.0 05/20/19 23:00 98.6 88 16 148/92 (110) 98 05/20/19 22:00 91 14 150/91 (110) 97 05/20/19 21:28 98.1 05/20/19 21:00 117 18 161/95 (117) 96 05/20/19 20:50 95 Nasal Cannula 2.0 28 05/20/19 20:00 98.1 94 14 162/88 (112) 97 05/20/19 20:00 111 05/20/19 20:00 Nasal Cannula 2.0 05/20/19 19:00 95 11 155/92 (113) 98 05/20/19 18:00 97 12 158/86 (110) 98 05/20/19 17:00 119 20 170/100 (123) 98 05/20/19 16:00 Nasal Cannula 2.0 05/20/19 16:00 98.8 97 16 159/95 (116) 97 05/20/19 15:32 106 05/20/19 15:00 93 12 161/100 (120) 97 05/20/19 14:30 Nasal Cannula 2.0 05/20/19 14:00 91 15 159/95 (116) 98 05/20/19 13:00 95 18 156/87 (110) 98 05/20/19 12:00 98.9 93 12 142/85 (104) 98 05/20/19 12:00 Nasal Cannula 2.0 05/20/19 11:00 96 15 153/100 (117) 96 05/20/19 10:00 96 18 149/95 (113) 97 05/20/19 09:00 95 11 142/82 (102) 97 05/20/19 08:00 90 05/20/19 08:00 99.0 128 24 162/103 (122) 98 05/20/19 08:00 Nasal Cannula 2.0 05/20/19 07:00 91 13 147/81 (103) 98 05/20/19 06:00 99 15 150/78 (102) 97 05/20/19 05:00 125 19 124/86 (99) 96 05/20/19 04:00 97 05/20/19 04:00 98.8 96 17 146/95 (112) 98 05/20/19 04:00 Nasal Cannula 2.0 05/20/19 03:00 103 28 109/53 (71) 96 05/20/19 02:00 95 12 141/88 (105) 96 05/20/19 01:00 104 10 115/79 (91) 95 05/20/19 00:00 99.0 104 17 138/89 (105) 96 05/20/19 00:00 125 05/20/19 00:00 Nasal Cannula 2.0 05/19/19 23:00 102 14 141/73 (95) 96 05/19/19 22:00 124 21 132/95 (107) 96 05/19/19 21:00 105 20 125/101 (109) 98 05/19/19 20:12 96 Nasal Cannula 2.0 28 05/19/19 20:00 106 05/19/19 20:00 98.9 105 12 132/86 (101) 97 05/19/19 20:00 Nasal Cannula 2.0 05/19/19 19:00 105 12 131/88 (102) 96 05/19/19 18:00 114 8 133/90 (104) 95 05/19/19 17:00 121 16 135/97 (110) 96 05/19/19 16:00 99.0 112 13 160/86 (110) 98 05/19/19 16:00 109 05/19/19 15:00 112 12 129/88 (102) 95 05/19/19 14:00 114 20 123/90 (101) 94 05/19/19 13:00 116 22 123/90 (101) 97 05/19/19 12:00 98.2 124 19 99/65 (76) 96 05/19/19 12:00 131 Intake and Output 05/20/19 05/21/19 18:59 06:59 Intake Total 2243.167 ml 1426.7491 ml Output Total 465 ml 465 ml Balance 1778.167 ml 961.7491 ml Intake IV Total 2243.167 ml 1426.7491 ml Output Urine Total 450 ml 410 ml Stool Total 5 ml Emesis 15 ml 50 ml # Voids 1 3 # Bowel Movements 3 2 Labs Test 05/18/19 17:30 05/18/19 20:10 05/18/19 21:30 05/19/19 00:30 White Blood Count 30.2 K/UL (4.8-10.8) Red Blood Count 5.45 M/UL (4.70-6.10) Hemoglobin 17.0 G/DL (14.2-18.0) Hematocrit 49.7 % (42.0-52.0) Mean Corpuscular Volume 91 FL (80-99) Mean Corpuscular Hemoglobin 31.2 PG (27.0-31.0) Mean Corpuscular Hemoglobin Concent 34.3 G/DL (32.0-36.0) Red Cell Distribution Width 11.7 % (11.6-14.8) Platelet Count 155 K/UL (150-450) Mean Platelet Volume 7.3 FL (6.5-10.1) Neutrophils (%) (Auto) % (45.0-75.0) Lymphocytes (%) (Auto) % (20.0-45.0) Monocytes (%) (Auto) % (1.0-10.0) Eosinophils (%) (Auto) % (0.0-3.0) Basophils (%) (Auto) % (0.0-2.0) Differential Total Cells Counted 100 Neutrophils % (Manual) 93 % (45-75) Lymphocytes % (Manual) 1 % (20-45) Monocytes % (Manual) 4 % (1-10) Eosinophils % (Manual) 0 % (0-3) Basophils % (Manual) 0 % (0-2) Band Neutrophils 2 % (0-8) Platelet Estimate Adequate Platelet Morphology Normal Red Blood Cell Morphology Normal Activated Partial Thromboplast Time 111 SEC (23-33) 72 SEC (23-33) Sodium Level 143 MMOL/L (136-145) Potassium Level 4.8 MMOL/L (3.5-5.1) Chloride Level 108 MMOL/L (98-107) Carbon Dioxide Level 24 MMOL/L (21-32) Anion Gap 11 mmol/L (5-15) Blood Urea Nitrogen 17 mg/dL (7-18) Creatinine 1.5 MG/DL (0.55-1.30) Estimat Glomerular Filtration Rate 49.0 mL/min (>60) Glucose Level 185 MG/DL (74-106) Lactic Acid Level 3.90 mmol/L (0.4-2.0) 3.70 mmol/L (0.66-2.22) Calcium Level 7.8 MG/DL (8.5-10.1) Total Bilirubin 1.0 MG/DL (0.2-1.0) Aspartate Amino Transf (AST/SGOT) 19 U/L (15-37) Alanine Aminotransferase (ALT/SGPT) 21 U/L (12-78) Alkaline Phosphatase 67 U/L (46-116) Total Protein 6.2 G/DL (6.4-8.2) Albumin 2.2 G/DL (3.4-5.0) Globulin 4.0 g/dL Albumin/Globulin Ratio 0.6 (1.0-2.7) Prostate Specific Antigen 1.84 ng/mL (0.13-4.0) Urine Color Yellow Urine Appearance Clear Urine pH 5 (4.5-8.0) Urine Specific [place] 1.015 (1.005-1.035) Urine Protein 2+ (NEGATIVE) Urine Glucose (UA) Negative (NEGATIVE) Urine Ketones 3+ (NEGATIVE) Urine Blood 2+ (NEGATIVE) Urine Nitrite Negative (NEGATIVE) Urine Bilirubin Negative (NEGATIVE) Urine Urobilinogen 1 MG/DL (0.0-1.0) Urine Leukocyte Esterase 1+ (NEGATIVE) Urine RBC 0-2 /HPF (0 - 0) Urine WBC 0-2 /HPF (0 - 0) Urine Squamous Epithelial Cells None /LPF (NONE/OCC) Urine Bacteria Few /HPF (NONE) Stool Occult Blood Positive (NEGATIVE) Test 05/19/19 06:40 05/19/19 14:55 05/20/19 04:20 05/20/19 09:25 White Blood Count 31.2 K/UL (4.8-10.8) 23.7 K/UL (4.8-10.8) Red Blood Count 5.05 M/UL (4.70-6.10) 3.87 M/UL (4.70-6.10) Hemoglobin 15.6 G/DL (14.2-18.0) 12.1 G/DL (14.2-18.0) Hematocrit 47.1 % (42.0-52.0) 36.0 % (42.0-52.0) Mean Corpuscular Volume 93 FL (80-99) 93 FL (80-99) Mean Corpuscular Hemoglobin 30.9 PG (27.0-31.0) 31.4 PG (27.0-31.0) Mean Corpuscular Hemoglobin Concent 33.2 G/DL (32.0-36.0) 33.8 G/DL (32.0-36.0) Red Cell Distribution Width 13.4 % (11.6-14.8) 13.5 % (11.6-14.8) Platelet Count 156 K/UL (150-450) 164 K/UL (150-450) Mean Platelet Volume 6.0 FL (6.5-10.1) 5.2 FL (6.5-10.1) Neutrophils (%) (Auto) % (45.0-75.0) % (45.0-75.0) Lymphocytes (%) (Auto) % (20.0-45.0) % (20.0-45.0) Monocytes (%) (Auto) % (1.0-10.0) % (1.0-10.0) Eosinophils (%) (Auto) % (0.0-3.0) % (0.0-3.0) Basophils (%) (Auto) % (0.0-2.0) % (0.0-2.0) Differential Total Cells Counted 100 100 Neutrophils % (Manual) 79 % (45-75) 88 % (45-75) Lymphocytes % (Manual) 6 % (20-45) 6 % (20-45) Monocytes % (Manual) 13 % (1-10) 6 % (1-10) Eosinophils % (Manual) 0 % (0-3) 0 % (0-3) Basophils % (Manual) 0 % (0-2) 0 % (0-2) Band Neutrophils 2 % (0-8) 0 % (0-8) Platelet Estimate Adequate Adequate Platelet Morphology Normal Normal Red Blood Cell Morphology Normal Prothrombin Time 12.6 SEC (9.30-11.50) 10.9 SEC (9.30-11.50) Prothromb Time International Ratio 1.2 (0.9-1.1) 1.0 (0.9-1.1) Activated Partial Thromboplast Time 57 SEC (23-33) 87 SEC (23-33) 63 SEC (23-33) Sodium Level 144 MMOL/L (136-145) 146 MMOL/L (136-145) Potassium Level 4.7 MMOL/L (3.5-5.1) 3.8 MMOL/L (3.5-5.1) Chloride Level 106 MMOL/L (98-107) 107 MMOL/L (98-107) Carbon Dioxide Level 28 MMOL/L (21-32) 35 MMOL/L (21-32) Anion Gap 10 mmol/L (5-15) 4 mmol/L (5-15) Blood Urea Nitrogen 23 mg/dL (7-18) 19 mg/dL (7-18) Creatinine 1.6 MG/DL (0.55-1.30) 1.1 MG/DL (0.55-1.30) Estimat Glomerular Filtration Rate 45.4 mL/min (>60) > 60 mL/min (>60) Glucose Level 135 MG/DL (74-106) 128 MG/DL (74-106) Lactic Acid Level 3.10 mmol/L (0.4-2.0) 2.40 mmol/L (0.4-2.0) 1.60 mmol/L (0.66-2.22) Calcium Level 8.0 MG/DL (8.5-10.1) 8.0 MG/DL (8.5-10.1) Phosphorus Level 2.2 MG/DL (2.5-4.9) Magnesium Level 2.1 MG/DL (1.8-2.4) Total Bilirubin 0.8 MG/DL (0.2-1.0) 1.0 MG/DL (0.2-1.0) Aspartate Amino Transf (AST/SGOT) 29 U/L (15-37) 35 U/L (15-37) Alanine Aminotransferase (ALT/SGPT) 25 U/L (12-78) 25 U/L (12-78) Alkaline Phosphatase 70 U/L (46-116) 78 U/L (46-116) Total Protein 6.2 G/DL (6.4-8.2) 6.5 G/DL (6.4-8.2) Albumin 2.2 G/DL (3.4-5.0) 2.3 G/DL (3.4-5.0) Globulin 4.0 g/dL 4.2 g/dL Albumin/Globulin Ratio 0.6 (1.0-2.7) 0.5 (1.0-2.7) Carcinoembryonic Antigen 2.2 ng/mL (0.0-4.7) CA 19-9 Antigen 5 U/mL (0-35) Homocystine 6.4 umol/L (0.0-15.0) Erythrocyte Sedimentation Rate 24 MM/HR (0-20) C-Reactive Protein, Quantitative 38.2 mg/dL (0.00-0.90) Amylase Level 16 U/L (25-115) Lipase 61 U/L (73-393) Test 05/20/19 12:10 05/20/19 19:45 05/21/19 05:40 Activated Partial Thromboplast Time 117 SEC (23-33) 72 SEC (23-33) 76 SEC (23-33) White Blood Count 21.4 K/UL (4.8-10.8) Red Blood Count 3.55 M/UL (4.70-6.10) Hemoglobin 11.2 G/DL (14.2-18.0) Hematocrit 33.1 % (42.0-52.0) Mean Corpuscular Volume 93 FL (80-99) Mean Corpuscular Hemoglobin 31.4 PG (27.0-31.0) Mean Corpuscular Hemoglobin Concent 33.7 G/DL (32.0-36.0) Red Cell Distribution Width 13.5 % (11.6-14.8) Platelet Count 151 K/UL (150-450) Mean Platelet Volume 6.1 FL (6.5-10.1) Neutrophils (%) (Auto) % (45.0-75.0) Lymphocytes (%) (Auto) % (20.0-45.0) Monocytes (%) (Auto) % (1.0-10.0) Eosinophils (%) (Auto) % (0.0-3.0) Basophils (%) (Auto) % (0.0-2.0) Differential Total Cells Counted 100 Neutrophils % (Manual) 86 % (45-75) Lymphocytes % (Manual) 6 % (20-45) Monocytes % (Manual) 7 % (1-10) Eosinophils % (Manual) 1 % (0-3) Basophils % (Manual) 0 % (0-2) Band Neutrophils 0 % (0-8) Platelet Estimate Adequate Platelet Morphology Normal Polychromasia 1+ Hypochromasia 1+ Sodium Level 145 MMOL/L (136-145) Potassium Level 3.9 MMOL/L (3.5-5.1) Chloride Level 107 MMOL/L (98-107) Carbon Dioxide Level 35 MMOL/L (21-32) Anion Gap 3 mmol/L (5-15) Blood Urea Nitrogen 14 mg/dL (7-18) Creatinine 1.0 MG/DL (0.55-1.30) Estimat Glomerular Filtration Rate > 60 mL/min (>60) Glucose Level 124 MG/DL (74-106) Calcium Level 7.8 MG/DL (8.5-10.1) Total Bilirubin 1.0 MG/DL (0.2-1.0) Aspartate Amino Transf (AST/SGOT) 31 U/L (15-37) Alanine Aminotransferase (ALT/SGPT) 23 U/L (12-78) Alkaline Phosphatase 71 U/L (46-116) Total Protein 6.0 G/DL (6.4-8.2) Albumin 2.1 G/DL (3.4-5.0) Globulin 3.9 g/dL Albumin/Globulin Ratio 0.5 (1.0-2.7) Amylase Level 22 U/L (25-115) Lipase 121 U/L (73-393) Height (Feet): 5 Height (Inches): 7.00 Weight (Pounds): 187 Objective Physical Exam General appearance: alert, cooperative, no distress Head: Normocephalic, without obvious abnormality, atraumatic Eyes: conjunctivae/corneas clear. PERRL Throat: Lips, mucosa, and tongue normal. Neck: supple, symmetrical, trachea midline, no adenopathy, thyroid: not enlarged, symmetric Lungs: clear to auscultation bilaterally. NC++ Heart: regular rate and rhythm, S1, S2 normal, no murmur Abdomen: soft, mild discomfort/tender. Bowel sounds normal Extremities: extremities normal, atraumatic Pulses: 2+ and symmetric Wayne Smith MD May 21, 2019 11:39
--- NOTE | 2019-05-21 12:00 | NUR ---
NURSE NOTES: Patient awake and oriented. Patient complaining of pain in his abdomen at this time. Patient blood pressure elevated at 166/98 at this time. Patient showing sinus rhythm on the quality assurance monitor chassis at this time. Patient remains on 2L NC with SpO2 98% at this time. Patient remains NPO except meds and ice chips. Dr Gonzalez and Dr Lyon aware of black/tarry stool. Patient had another BM this morning. Patient denies nausea at this time. urine output remains dark jessa in color. Patient skin intact at this time. right forearm 22 gauge peripheral IV and right hand 22 gauge peripheral IV both remain patent and asymptomatic. Right Hand IV running heparin drip at 16units/kg/hr and right forearm IV running lactated ringers at 100mL/hr at this time. Patient bed in low position with call light in reach. Family at the bedside. Will follow up and continue to administer pain medication as ordered.
[2019-05-21] MEDS ORDERED: HydrALAZINE 25mg tab ORAL PRN (12:45)
--- NOTE | 2019-05-21 14:00 | NUR ---
NURSE NOTES: Patient sleeping at this time with no sign of acute distress. Patient vital signs stable at this time. Will continue to monitor.
--- NOTE | 2019-05-21 14:04 | General Progress Note ---
Assessment/Plan Status: progressing Assessment/Plan: This is a 54-year-old male who presented with severe abdominal pain and diarrhea first stating 8 days prior to presentation to the ED. He denies heavy alcohol use however admits that he was drinking more than usual during the holiday season. He also later admits to rn long term care 3-4 years of testosterone injection use. His LFTs only remarkable for an elevated bilirubin of 1.8 with normal transaminases.His amylase and lipase are within normal limits, and lactic acid 1.7. His initial CT abdomen pelvis w contrast demonstrated acute uncomplicated pancreatitis and questionable SMV, portal and splenic vein thrombosis vs. flow artifact. abdominal US showed fatty liver and no gallstones or cbd dilatation. Initially admitted for acute pancreatitis. However later developed fever 100, bloody diarrhea, increased lactic acidosis to 3.8, leukocytosis 11-->22. repeat CT abdomen pelvis w contrast showed portal , splenic, and superior mesenteric vein thrombosis. Severe wall edema of the proximal jejunum. Distal jejunal and ileal dilatation without wall thickening. He was transferred to the ICU, started on heparin drip, broad spectrum antibiotics, IV fluids, IV PPI. He is hemodynamically stable. 1. 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 Acute pancreatitis. Possibly alcohol induced vs secondary to above. 3. ANDRE 4. Leukocytosis 11->30K, CXR negative 5. Fatty infiltration of the liver 6. Elevated bilirubin 1.8 7. Previous exposure to hepatitis B 8. History of testosterone injection 9. Thrombocytopenia- resolved Plan: Spoke with [facility] transfer center, patient does not requir ICU level of care at accepting facility, clinically appropriate for PCU or any other monitored bed. Continue on heparin drip continue IVF fluids continue IV PPI BID NPO Broad spectrum antibiotics with meropenem per ID recs, blood cultures Vascular surgery, general surgery, GI, ID and hematology oncology follow up. Hypercoagulable work up per hematology/oncology: protein c/s, antithrombin iii, prothrombin gene mutation, lupus anticoag, consider Jak2 as outpatient requires anticoagulation x 3-6 months minimum stop steroid injections Elevated T bili normal direct bili unlikely obstructive in nature, likely related to pancreatitis/ smv/portal thrombosis or fatty liver Trend renal function, avoid nephrotoxic medications. If worse, renal consult GI and DVT prophylaxis: Heparin drip, IV PPI I spent 75 minutes on this patient's case, and 40 mins was dedicated to critical care Critical Care Services performed include: Telemetry Review Hemodynamic measurement interpretation Laboratory data review and interpretation Radiology image review and interpretation Discussion of patient's care with ICU team, ICU Nursing staff and/or consulting services Subjective Date patient seen: May 21, 2019 Time patient seen: 12:12 ROS Limited/Unobtainable: No Constitutional: Denies: chills, fever Cardiovascular: Denies: chest pain Respiratory: Denies: cough Gastrointestinal/Abdominal: Reports: black stools; Denies: abdominal pain Genitourinary: Denies: burning Neurologic/Psychiatric: Denies: anxiety, depressed Endocrine: Denies: excessive sweating Allergies: Coded Allergies: No Known Allergies (Unverified , 05/16/19) Subjective Follow up for portal, splenic, and superior mesenteric vein thrombosis, small bowel ischemia. Mild intermittent hematochezia reported, last BM at 0000 today. Otherwise tolerating heparin drip. Spoke with [facility] transfer center x 2 today, awaiting call from accepting MD to give sign out. Spoke with PCP, Dr. Underwood. Spoke with family at bedside x 2. Objective Last 24 Hour Vital Signs Date Time Temp Pulse Resp B/P (MAP) Pulse Ox O2 Delivery O2 Flow Rate FiO2 05/21/19 12:00 99.6 100 13 166/98 (120) 97 05/21/19 12:00 Nasal Cannula 2.0 05/21/19 11:00 87 11 183/98 (126) 97 05/21/19 10:00 88 14 185/82 (116) 97 05/21/19 09:00 93 10 171/86 (114) 97 05/21/19 08:00 99.3 85 10 171/93 (119) 98 05/21/19 08:00 Nasal Cannula 2.0 05/21/19 07:50 96 Nasal Cannula 2.0 28 05/21/19 07:00 92 11 151/94 (113) 97 05/21/19 06:44 98.4 05/21/19 06:00 98.4 109 19 165/110 (128) 99 05/21/19 05:00 83 10 151/96 (114) 99 05/21/19 04:00 89 05/21/19 04:00 Nasal Cannula 2.0 05/21/19 04:00 90 11 137/81 (99) 98 05/21/19 04:00 90 11 98 1/12/20 03:00 98.2 91 15 167/85 (112) 96 05/21/19 02:00 92 13 158/92 (114) 99 05/21/19 01:00 95 12 148/87 (107) 98 05/21/19 00:00 84 17 168/92 (117) 98 05/21/19 00:00 Nasal Cannula 2.0 05/20/19 23:00 98.6 88 16 148/92 (110) 98 05/20/19 22:00 91 14 150/91 (110) 97 05/20/19 21:28 98.1 05/20/19 21:00 117 18 161/95 (117) 96 05/20/19 20:50 95 Nasal Cannula 2.0 28 05/20/19 20:00 98.1 94 14 162/88 (112) 97 05/20/19 20:00 111 05/20/19 20:00 Nasal Cannula 2.0 05/20/19 19:00 95 11 155/92 (113) 98 05/20/19 18:00 97 12 158/86 (110) 98 05/20/19 17:00 119 20 170/100 (123) 98 05/20/19 16:00 Nasal Cannula 2.0 05/20/19 16:00 98.8 97 16 159/95 (116) 97 05/20/19 15:32 106 05/20/19 15:00 93 12 161/100 (120) 97 05/20/19 14:30 Nasal Cannula 2.0 Intake and Output 05/20/19 05/21/19 19:00 07:00 Intake Total 2145.503 ml 1300.9131 ml Output Total 485 ml 570 ml Balance 1660.503 ml 730.9131 ml Intake IV Total 2145.503 ml 1300.9131 ml Output Urine Total 450 ml 535 ml Stool Total 5 ml Emesis 35 ml 30 ml # Voids 1 3 # Bowel Movements 3 2 Laboratory Tests 05/20/19 19:45: Activated Partial Thromboplast Time 72H 05/21/19 05:40: Activated Partial Thromboplast Time 76H, White Blood Count 21.4H, Red Blood Count 3.55L, Hemoglobin 11.2L, Hematocrit 33.1L, Mean Corpuscular Volume 93, Mean Corpuscular Hemoglobin 31.4H, Mean Corpuscular Hemoglobin Concent 33.7, Red Cell Distribution Width 13.5, Platelet Count 151, Mean Platelet Volume 6.1L , Neutrophils (%) (Auto) , Lymphocytes (%) (Auto) , Monocytes (%) (Auto) , Eosinophils (%) (Auto) , Basophils (%) (Auto) , Differential Total Cells Counted 100, Neutrophils % (Manual) 86H, Lymphocytes % (Manual) 6L, Monocytes % (Manual) 7, Eosinophils % (Manual) 1, Basophils % (Manual) 0, Band Neutrophils 0 , Platelet Estimate Adequate, Platelet Morphology Normal, Polychromasia 1+, Hypochromasia 1+, Sodium Level 145, Potassium Level 3.9, Chloride Level 107, Carbon Dioxide Level 35H, Anion Gap 3L, Blood Urea Nitrogen 14, Creatinine 1.0, Estimat Glomerular Filtration Rate > 60, Glucose Level 124H, Calcium Level 7.8L , Total Bilirubin 1.0, Aspartate Amino Transf (AST/SGOT) 31, Alanine Aminotransferase (ALT/SGPT) 23, Alkaline Phosphatase 71, Total Protein 6.0L, Albumin 2.1L, Globulin 3.9, Albumin/Globulin Ratio 0.5L, Amylase Level 22L, Lipase 121 Height (Feet): 5 Height (Inches): 7.00 Weight (Pounds): 187 General Appearance: no apparent distress, alert Neck: normal alignment, supple Cardiovascular: normal rate, regular rhythm Respiratory/Chest: lungs clear, normal breath sounds Abdomen: non tender, distended Extremities: normal range of motion, non-tender Deandre Castellanos MD May 21, 2019 14:04
--- NOTE | 2019-05-21 16:00 | NUR ---
NURSE NOTES: Patient awake and oriented. Patient continues to complain of pressure and pain in his abdomen. Patient blood pressure elevated at 160/84 at this time. Patient showing sinus rhythm on the monitoring coordinator at this time. Patient remains on 2L NC with SpO2 98% at this time. Patient remains NPO except meds and ice chips. Patient continue to have black/bloody stool. Patient denies nausea at this time. Urine output remains dark jessa in color. Patient skin intact at this time. right forearm 22 gauge peripheral IV and right hand 22 gauge peripheral IV both remain patent and asymptomatic. Right Hand IV running heparin drip at 16units/kg/hr and right forearm IV running lactated ringers at 100mL/hr at this time. Patient bed in low position with call light in reach. Family at the bedside. Will follow up and continue to administer pain medication as ordered.
--- NOTE | 2019-05-21 16:19 | Infectious Diseases Prog Note ---
Assessment/Plan Assessment/Plan ASSESSMENT AND PLAN: 1. possible sepsis, leukocytosis, fevers, SMV/portal/splenic vein thrombosis, abdominal pain, dark stool, ? 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 4. The patient may need high level of care. I believe they are planning to do that. 5. Abdominal pain. 6. Hematology workup for thrombosis. 7. Continue supportive intensive care unit care. 8. Past medical history is otherwise negative. 9. Allergies are negative. 10. Social history is negative. 11. Family history is positive for pancreatic cancer. 12. MAR is noted. 13. Case was discussed with RN. 14. Continue treatment per primary consultants. 15. Orders were noted and entered. Subjective Constitutional: Reports: fever - lgt, fatigue HEENT: Denies: congestion Respiratory: Denies: shortness of breath Cardiovascular: Denies: chest pain Gastrointestinal/Abdominal: Reports: other - dark stool, + abdominal pain ; Denies: nausea, vomiting, diarrhea Genitourinary: Reports: other - no pardo ; Denies: dysuria, hematuria, frequency Neurologic: Denies: headache Psychiatric: Denies: depression Skin: Denies: rash Hematologic: Reports: bleeding - dark stool Musculoskeletal: Denies: pain Allergies: Coded Allergies: No Known Allergies (Unverified , 05/16/19) Objective Vital Signs Last 24 Hour Vital Signs Date Time Temp Pulse Resp B/P (MAP) Pulse Ox O2 Delivery O2 Flow Rate FiO2 05/21/19 15:00 108 21 160/87 (111) 98 05/21/19 14:00 87 14 151/93 (112) 96 05/21/19 13:00 91 14 175/101 (125) 97 05/21/19 12:00 99.6 100 13 166/98 (120) 97 05/21/19 12:00 Nasal Cannula 2.0 05/21/19 12:00 95 05/21/19 11:00 87 11 183/98 (126) 97 05/21/19 10:00 88 14 185/82 (116) 97 05/21/19 09:00 93 10 171/86 (114) 97 05/21/19 08:00 99.3 85 10 171/93 (119) 98 05/21/19 08:00 86 05/21/19 08:00 Nasal Cannula 2.0 05/21/19 07:50 96 Nasal Cannula 2.0 28 05/21/19 07:00 92 11 151/94 (113) 97 05/21/19 06:44 98.4 05/21/19 06:00 98.4 109 19 165/110 (128) 99 05/21/19 05:00 83 10 151/96 (114) 99 05/21/19 04:00 89 05/21/19 04:00 Nasal Cannula 2.0 05/21/19 04:00 90 11 137/81 (99) 98 05/21/19 04:00 90 11 98 05/21/19 03:00 98.2 91 15 167/85 (112) 96 05/21/19 02:00 92 13 158/92 (114) 99 05/21/19 01:00 95 12 148/87 (107) 98 05/21/19 00:00 84 17 168/92 (117) 98 05/21/19 00:00 Nasal Cannula 2.0 05/20/19 23:00 98.6 88 16 148/92 (110) 98 05/20/19 22:00 91 14 150/91 (110) 97 05/20/19 21:28 98.1 05/20/19 21:00 117 18 161/95 (117) 96 05/20/19 20:50 95 Nasal Cannula 2.0 28 05/20/19 20:00 98.1 94 14 162/88 (112) 97 05/20/19 20:00 111 05/20/19 20:00 Nasal Cannula 2.0 05/20/19 19:00 95 11 155/92 (113) 98 05/20/19 18:00 97 12 158/86 (110) 98 05/20/19 17:00 119 20 170/100 (123) 98 Height (Feet): 5 Height (Inches): 7.00 Weight (Pounds): 187 General Appearance: no acute distress HEENT: normocephalic, atraumatic, anicteric, mucous membranes moist Respiratory/Chest: lungs clear, normal breath sounds, no respiratory distress, no accessory muscle use Cardiovascular: normal rate, regular rhythm, no gallop/murmur, no JVD Abdomen: distended, other - bowel sounds decreased, firm, pain Genitourinary: other - no pardo Extremities: no cyanosis Skin: no rash 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 Presence of periportal and retroperitoneal collaterals suggests that this may be an acute on chronic process Severe wall edema of the proximal jejunum. Distal jejunal and ileal dilatation without wall thickening. Findings most likely represent enteritis secondary bowel ischemia secondary to the above Interim development of free intraperitoneal fluid, likely secondary to the above Pancreatitis changes are somewhat less striking than evident on the prior exam. No evidence of pancreatic necrosis Fatty liver Prostatomegaly Pulmonary critical dependent atelectatic changes Procedure: XRAY Chest 1v Indication: Shortness of breath Technique: One view of the chest Comparison: none Findings: Inspiration is suboptimal. Lungs and pleural spaces are clear. The heart size is normal Impression: No acute process Microbiology Date/Time Source Procedure Growth Status 05/18/19 17:20 Blood Blood Culture - Preliminary NO GROWTH AFTER 48 HOURS Resulted 05/18/19 21:30 Urine,Clean Catch Urine Culture - Final NO GROWTH AFTER 48 HOURS Complete Microbiology Date/Time Source Procedure Growth Status 05/18/19 17:20 Blood Blood Culture - Preliminary NO GROWTH AFTER 48 HOURS Resulted 05/18/19 17:15 Blood Blood Culture - Preliminary NO GROWTH AFTER 48 HOURS Resulted 05/18/19 21:30 Urine,Clean Catch Urine Culture - Final NO GROWTH AFTER 48 HOURS Complete Laboratory Tests Test 05/20/19 19:45 05/21/19 05:40 Activated Partial Thromboplast Time 72 SEC (23-33) H 76 SEC (23-33) H White Blood Count 21.4 K/UL (4.8-10.8) H Red Blood Count 3.55 M/UL (4.70-6.10) L Hemoglobin 11.2 G/DL (14.2-18.0) L Hematocrit 33.1 % (42.0-52.0) L Mean Corpuscular Volume 93 FL (80-99) Mean Corpuscular Hemoglobin 31.4 PG (27.0-31.0) H Mean Corpuscular Hemoglobin Concent 33.7 G/DL (32.0-36.0) Red Cell Distribution Width 13.5 % (11.6-14.8) Platelet Count 151 K/UL (150-450) Mean Platelet Volume 6.1 FL (6.5-10.1) L Neutrophils (%) (Auto) % (45.0-75.0) Lymphocytes (%) (Auto) % (20.0-45.0) Monocytes (%) (Auto) % (1.0-10.0) Eosinophils (%) (Auto) % (0.0-3.0) Basophils (%) (Auto) % (0.0-2.0) Differential Total Cells Counted 100 Neutrophils % (Manual) 86 % (45-75) H Lymphocytes % (Manual) 6 % (20-45) L Monocytes % (Manual) 7 % (1-10) Eosinophils % (Manual) 1 % (0-3) Basophils % (Manual) 0 % (0-2) Band Neutrophils 0 % (0-8) Platelet Estimate Adequate Platelet Morphology Normal Polychromasia 1+ Hypochromasia 1+ Sodium Level 145 MMOL/L (136-145) Potassium Level 3.9 MMOL/L (3.5-5.1) Chloride Level 107 MMOL/L (98-107) Carbon Dioxide Level 35 MMOL/L (21-32) H Anion Gap 3 mmol/L (5-15) L Blood Urea Nitrogen 14 mg/dL (7-18) Creatinine 1.0 MG/DL (0.55-1.30) Estimat Glomerular Filtration Rate > 60 mL/min (>60) Glucose Level 124 MG/DL (74-106) H Calcium Level 7.8 MG/DL (8.5-10.1) L Total Bilirubin 1.0 MG/DL (0.2-1.0) Aspartate Amino Transf (AST/SGOT) 31 U/L (15-37) Alanine Aminotransferase (ALT/SGPT) 23 U/L (12-78) Alkaline Phosphatase 71 U/L (46-116) Total Protein 6.0 G/DL (6.4-8.2) L Albumin 2.1 G/DL (3.4-5.0) L Globulin 3.9 g/dL Albumin/Globulin Ratio 0.5 (1.0-2.7) L Amylase Level 22 U/L (25-115) L Lipase 121 U/L (73-393) Current Medications Medications (Trade) Dose Ordered Sig/Tonie Route PRN Reason Start Time Stop Time Status Last Admin Dose Admin Acetaminophen (Tylenol) 650 mg Q4H PRN ORAL fever 05/18/19 11:49 06/17/19 11:48 Chlorhexidine Gluconate (Cee-Hex 2%) 1 applic DAILY@2000 TOPIC 05/20/19 20:00 06/19/19 19:59 Dextrose (Dextrose 50%) 25 ml Q30M PRN IV Hypoglycemia 05/18/19 11:45 06/15/19 20:14 Dextrose (Dextrose 50%) 50 ml Q30M PRN IV Hypoglycemia 05/18/19 11:45 06/15/19 20:14 Diphenhydramine HCl (Benadryl) 25 mg Q6H PRN ORAL Itching/Pruritis 05/18/19 11:49 06/17/19 11:48 Docusate Sodium (Colace) 100 mg TWICE A DAY ORAL 05/21/19 09:00 06/20/19 08:59 Heparin Sodium/ Dextrose 500 ml @ 25.836 mls/ hr ADJUST PER PROTOCOL IV 05/20/19 13:30 06/17/19 18:39 05/20/19 22:56 Heparin Sodium/ Sodium Chloride (Heparin 1000 units/500ml Premix) 1,000 unit ONCE PRN IV PICC LINE 05/20/19 10:30 05/22/19 10:29 Hydralazine HCl (Apresoline) 25 mg Q6H PRN ORAL For High Blood Pressure 05/21/19 12:45 06/20/19 12:44 Hydromorphone HCl (Dilaudid) 1 mg Q3H PRN IVP For Pain 4-6 05/18/19 11:44 05/25/19 11:43 05/20/19 20:58 Hydromorphone HCl (Dilaudid) 2 mg Q3H PRN IVP Severe Pain (Pain Scale 7-10) 05/18/19 11:44 05/25/19 11:43 05/21/19 15:44 Lactated Ringer's 1,000 ml @ 100 mls/hr Q10H IV 05/20/19 12:30 06/17/19 12:29 05/21/19 09:14 Lidocaine HCl (Xylocaine 1% 30ml) 30 ml ONCE PRN INJ PICC line 05/20/19 10:30 05/22/19 10:29 Meropenem 1 gm/ Sodium Chloride 100 ml @ 200 mls/hr Q8HR IVPB 05/18/19 15:00 05/23/19 14:59 05/21/19 14:28 Metoclopramide HCl (Reglan) 10 mg Q6H PRN IVP Nausea & Vomiting 05/20/19 10:45 06/19/19 10:44 05/21/19 06:13 Morphine Sulfate (Morphine Sulfate) 1 mg Q3H PRN IVP pain 1-3 05/18/19 11:49 05/25/19 11:48 Ondansetron HCl (Zofran) 4 mg Q6H PRN IVP Nausea & Vomiting 05/18/19 11:49 06/17/19 11:48 05/21/19 03:10 Pantoprazole (Protonix) 40 mg EVERY 12 HOURS IVP 05/18/19 21:00 06/17/19 20:59 05/21/19 09:15 Polyethylene Glycol (Miralax) 17 gm BEDTIME ORAL 05/21/19 21:00 06/20/19 20:59 Keith Hines MD May 21, 2019 16:19
[2019-05-21] MEDS: Heparin 25,000u/D5W 500ml 500 ML IV SCH (17:21)
[2019-05-21] MEDS ORDERED: LR 1000ml ONE (17:38)
--- NOTE | 2019-05-21 18:30 | NUR ---
NURSE NOTES: Patient blood pressure elevated at this time. Patient given hydralazine PRN medication. Will continue to monitor. Patient complaining of pain 8/10 at this time. Will administer pain medication when due.
--- NOTE | 2019-05-21 19:29 | NUR ---
HAND-OFF: Report given to LUIS ALBERTO Marcano. Patient to be transferred to [facility]. awaiting bed. Endorsed to follow up.
--- NOTE | 2019-05-21 19:30 | NUR ---
NURSE NOTES: Received patient from LUIS ALBERTO Dawn. Patient is aaox4, vss, with no acute distress. Pt states pain is 4/10, but manageable. Patient is on 2L NC, NPO, with ice chips and medications PO approved per MD order. Patient is steady gait and uses bedside commode. Patient IV right hand 22g running Heparin and forearm 22g running LR at 100mL/hr. Patient denies n/v, on layout mechanic, and family members at bedside. Bed at its lowest position, call light in reach and x2 bed rails are up. Will continue to monitor.
[2019-05-21] MEDS: Dyna-Hex 2% Top Sol 2oz TOPIC SCH (20:00)
[2019-05-21] MEDS ORDERED: Miralax 17gm pkt ORAL SCH (21:00)
--- NOTE | 2019-05-21 22:10 | NUR ---
NURSE NOTES: Patient is resting well after pain medications given. Mother and nephew at bedside.
[2019-05-22] VITALS (17 sets, daily range): BP systolic 138–178; BP diastolic 82–103
--- NOTE | 2019-05-22 00:19 | NUR ---
NURSE NOTES: Patient is resting with family at bedside. Patient requested his sisters can only stay for one shift. Patient understands only two people at a time in the room. Patient is cooperative with the rule, but family members need educational reenforcement of this rule.
--- NOTE | 2019-05-22 02:35 | NUR ---
NURSE NOTES: Patient resting with family at bedside.
[2019-05-22 04:12] LABS: HEMOGLOBIN 10.4 G/DL (14.2-18.0); MEAN CORPUSCULAR VOLUME 92 FL (80-99); PLATELET COUNT 157 K/UL (150-450); RED BLOOD COUNT 3.36 M/UL (4.70-6.10); RED CELL DISTRIBUTION WIDTH 13.5 % (11.6-14.8); WHITE BLOOD COUNT 20.9 K/UL (4.8-10.8)
[2019-05-22] MEDS: LR 1000ml 1,000 ML IV SCH ×2 (04:25→14:42)
[2019-05-22 04:45] LABS: ALANINE AMINOTRANSFERASE 26 U/L (12-78); ALBUMIN 2.1 G/DL (3.4-5.0); ALBUMIN/GLOBULIN RATIO 0.5 (1.0-2.7); ALKALINE PHOSPHATASE 84 U/L (46-116); ANION GAP 5 mmol/L (5-15); ASPARTATE AMINO TRANSFERASE 34 U/L (15-37); BILIRUBIN,TOTAL 1.3 MG/DL (0.2-1.0); BLOOD UREA NITROGEN 10 mg/dL (7-18); CARBON DIOXIDE 33 MMOL/L (21-32); CHLORIDE 107 MMOL/L (98-107); CREATININE 0.8 MG/DL (0.55-1.30); POTASSIUM 3.6 MMOL/L (3.5-5.1); SODIUM 145 MMOL/L (136-145)
[2019-05-22 04:52] LABS: BILIRUBIN,DIRECT 0.3 MG/DL (0.0-0.3)
[2019-05-22] MEDS ORDERED: Heparin 5000 units/ml inj IV SCH (05:15)
[2019-05-22] MEDS ORDERED: Heparin 25,000u/D5W 500ml 500 ML IV SCH (05:15)
--- NOTE | 2019-05-22 06:41 | NUR ---
NURSE NOTES: Patient sleeping with family at bedside.
--- NOTE | 2019-05-22 07:08 | NUR ---
NURSE NOTES: Called [facility] transfer center to inquire about transfer. Spoke with Esvin. Received report that there is no bed available at this time.
--- NOTE | 2019-05-22 07:29 | NUR ---
HAND-OFF: Report given to LUIS ALBERTO Dawn.
--- NOTE | 2019-05-22 07:30 | NUR ---
NURSE NOTES: Received patient from LUIS ALBERTO Marcano. Patient sitting at the bedside at this time. Patient complaining of pain at this time. Patient assisted back to bed. Dilaudid 2mg IVP given at this time. Patient blood pressure elevated at this time at 150/93. HR is 110. Patient on 2L NC at this time with SpO2 of 97% and no sign of respiratory distress. Will continue to monitor. Patient skin intact. Ecchymosis noted on right upper arm. Will monitor for any more sign of ecchymosis as patient is on heparin drip. Patient has right hand 22 gauge peripheral IV and right forearm 22 gauge peripheral IV. Both patent, asymptomatic, and functional. Right hand PIV running heparin drip at 18units/kg/hr at this time. Right forearm PIV running lactated ringers at 100mL/hr at this time. Patient has slight swelling of the left hand. No swelling visually noted but patient states that there is a slight tight/swollen feeling noted. Patient bed in low position and call light in reach at this time. Sister at the bedside.
--- NOTE | 2019-05-22 07:49 | NUR ---
NURSE NOTES: Called transfer center at [facility] to inquire about status of transfer. Received report that patient has been removed from the transfer list.
--- NOTE | 2019-05-22 07:52 | NUR ---
NURSE NOTES: Spoke with Dr Smith when he rounded on the patient. Updated him regarding patient condition over night. Received order for 2D echocardiogram. Order read back, verified, and placed.
--- NOTE | 2019-05-22 08:55 | Hematology/Onc Progress Note ---
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, patent SMA YANNI celiac artery -- in this particular patient, given young age, likely related testosterone injection, and/or other hypercoag disorder --> have sent off hypercoag panel: protein c/s, antithrombin iii, prothrombin gene mutation, lupus anticoag, consider Jak2 as outpatient, may be a early manifestation of a MPD --> in addition, agree with vascular, surgery, requires anticoagulation x 3-6 months minimum --> stop steriod injections at this time --> heparin gtt-->05/22 to lovenox sq --> Also consider thrombectomy as per vascular/IR --> Goals of anticoagulation therapy are for PV recanalization or prevention of thrombus occlusion, andthus preventing or delaying portal hypertension complications. --> I gave him my office address, absolutely has to f/u to review hypercoag w/u and further recs in re to any further malignancy w/u as needed # Leukocytosis wcb 11K and normal renal functions --> wbc trend 11-->>30k-->21.4-->21 --> trend for improvement as needed --> id evaluation r/o infection # Anemia of chronic disease --> trend as needed 10 # Elevated bilirubin --> Elevated T bili normal direct bili unlikely obstructive in nature --> likely related to pancreatitis v smv/portal thrombosis # Abdominal pain Generalized abdominal pain 10 out of 10 --> afebrile, scan reviewed, no acute surgical intervention indicated --> reviewed by Camron # Dehydration --> continue on ivf # hx of alcohol use and hormone testosterone injections --> discontinue both # Dvt ppx heparin gtt--> 1.13 lovenox sq Appreciate consultation and nay Rn Subjective Constitutional: Denies: no symptoms, chills, fever, malaise, weakness, other HEENT: Denies: no symptoms, eye pain, blurred vision, tearing, double vision, ear pain, ear discharge, nose pain, nose congestion, throat pain, throat swelling, mouth pain, mouth swelling, other Cardiovascular: Denies: no symptoms, chest pain, edema, irregular heart rate, lightheadedness, palpitations, syncope, other Respiratory: Denies: no symptoms, cough, shortness of breath, SOB with excertion, SOB at rest, sputum, wheezing, other Gastrointestinal/Abdominal: Denies: no symptoms, abdomen distended, abdominal pain, black stools, tarry stools, blood in stool, constipated, diarrhea, difficulty swallowing, nausea, poor appetite, poor fluid intake, rectal bleeding , vomiting, other Genitourinary: Denies: no symptoms, burning, discharge, frequency, flank pain, hematuria, incontinence, pain, urgency, other Neurologic/Psychiatric: Denies: no symptoms, anxiety, depressed, emotional problems, headache, numbness, paresthesia, pre-existing deficit, seizure, tingling, tremors, weakness, other Allergies: Coded Allergies: No Known Allergies (Unverified , 05/16/19) Subjective 05/21: icu, on heparin drip, elevated bp, pending transfer to [facility] 05/22: have changed heparin gtt to lovenox, ordered 2d echo, potential csmc trans per rn, and clinic charge nurse Objective Objective Current Medications Medications (Trade) Dose Ordered Sig/Tonie Route PRN Reason Start Time Stop Time Status Last Admin Dose Admin Acetaminophen (Tylenol) 650 mg Q4H PRN ORAL fever 05/18/19 11:49 06/17/19 11:48 Chlorhexidine Gluconate (Cee-Hex 2%) 1 applic DAILY@1999 TOPIC 05/20/19 20:00 06/19/19 19:59 Dextrose (Dextrose 50%) 25 ml Q30M PRN IV Hypoglycemia 05/18/19 11:45 06/15/19 20:14 Dextrose (Dextrose 50%) 50 ml Q30M PRN IV Hypoglycemia 05/18/19 11:45 06/15/19 20:14 Diphenhydramine HCl (Benadryl) 25 mg Q6H PRN ORAL Itching/Pruritis 05/18/19 11:49 06/17/19 11:48 Docusate Sodium (Colace) 100 mg TWICE A DAY ORAL 05/21/19 09:00 06/20/19 08:59 05/21/19 18:09 Enoxaparin Sodium (Lovenox) 80 mg BID SUBQ 05/22/19 09:00 06/21/19 08:59 UNV Heparin Sodium/ Sodium Chloride (Heparin 1000 units/500ml Premix) 1,000 unit ONCE PRN IV PICC LINE 05/20/19 10:30 05/22/19 10:29 Hydralazine HCl (Apresoline) 25 mg Q6H PRN ORAL For High Blood Pressure 05/21/19 12:45 06/20/19 12:44 05/21/19 18:19 Hydromorphone HCl (Dilaudid) 1 mg Q3H PRN IVP For Pain 4-6 05/18/19 11:44 05/25/19 11:43 05/20/19 20:58 Hydromorphone HCl (Dilaudid) 2 mg Q3H PRN IVP Severe Pain (Pain Scale 7-10) 05/18/19 11:44 05/25/19 11:43 05/22/19 07:37 Lactated Ringer's 1,000 ml @ 100 mls/hr Q10H IV 05/20/19 12:30 06/17/19 12:29 05/22/19 04:25 Lidocaine HCl (Xylocaine 1% 30ml) 30 ml ONCE PRN INJ PICC line 05/20/19 10:30 05/22/19 10:29 Meropenem 1 gm/ Sodium Chloride 100 ml @ 200 mls/hr Q8HR IVPB 05/21/19 22:00 05/26/19 21:59 05/22/19 05:27 Metoclopramide HCl (Reglan) 10 mg Q6H PRN IVP Nausea & Vomiting 05/20/19 10:45 06/19/19 10:44 05/21/19 06:13 Morphine Sulfate (Morphine Sulfate) 1 mg Q3H PRN IVP pain 1-3 05/18/19 11:49 05/25/19 11:48 Ondansetron HCl (Zofran) 4 mg Q6H PRN IVP Nausea & Vomiting 05/18/19 11:49 06/17/19 11:48 05/21/19 03:10 Pantoprazole (Protonix) 40 mg EVERY 12 HOURS IVP 05/18/19 21:00 06/17/19 20:59 05/21/19 21:05 Polyethylene Glycol (Miralax) 17 gm BEDTIME ORAL 05/21/19 21:00 06/20/19 20:59 05/21/19 21:05 Last 24 Hour Vital Signs Date Time Temp Pulse Resp B/P (MAP) Pulse Ox O2 Delivery O2 Flow Rate FiO2 05/22/19 08:00 Nasal Cannula 2.0 05/22/19 07:00 109 16 150/93 (112) 99 05/22/19 06:00 93 13 167/89 (115) 98 05/22/19 05:00 98.4 99 11 138/82 (100) 97 05/22/19 04:56 98.6 05/22/19 04:00 Nasal Cannula 2.0 05/22/19 04:00 99 16 178/86 (116) 100 05/22/19 04:00 102 05/22/19 03:00 103 15 144/91 (108) 97 05/22/19 02:00 106 15 158/99 (118) 98 05/22/19 01:27 103 14 168/97 (120) 97 05/22/19 01:00 98.6 91 15 162/102 (122) 99 05/22/19 00:00 97 05/22/19 00:00 95 15 157/96 (116) 98 05/22/19 00:00 Nasal Cannula 2.0 05/21/19 23:00 103 13 147/99 (115) 97 05/21/19 22:00 112 19 169/94 (119) 98 05/21/19 21:00 97 16 158/94 (115) 96 05/21/19 20:00 98.6 123 18 140/83 (102) 97 05/21/19 20:00 Nasal Cannula 2.0 05/21/19 20:00 100 05/21/19 20:00 98 Nasal Cannula 2.0 28 05/21/19 19:00 103 12 157/86 (109) 95 05/21/19 18:19 190/83 05/21/19 18:14 113 18 190/98 (128) 98 05/21/19 18:00 95 17 174/90 (118) 99 05/21/19 17:00 91 11 160/96 (117) 96 05/21/19 16:00 100 05/21/19 16:00 98.9 99 12 162/87 (112) 96 05/21/19 16:00 Nasal Cannula 2.0 05/21/19 15:00 108 21 160/87 (111) 98 05/21/19 14:00 87 14 151/93 (112) 96 05/21/19 13:00 91 14 175/101 (125) 97 05/21/19 12:00 99.6 100 13 166/98 (120) 97 05/21/19 12:00 Nasal Cannula 2.0 05/21/19 12:00 95 05/21/19 11:00 87 11 183/98 (126) 97 05/21/19 10:00 88 14 185/82 (116) 97 05/21/19 09:00 93 10 171/86 (114) 97 05/21/19 08:00 99.3 85 10 171/93 (119) 98 05/21/19 08:00 86 05/21/19 08:00 Nasal Cannula 2.0 05/21/19 07:50 96 Nasal Cannula 2.0 28 05/21/19 07:00 92 11 151/94 (113) 97 05/21/19 06:00 98.4 109 19 165/110 (128) 99 05/21/19 05:00 83 10 151/96 (114) 99 05/21/19 04:00 89 05/21/19 04:00 Nasal Cannula 2.0 05/21/19 04:00 90 11 137/81 (99) 98 05/21/19 04:00 90 11 98 05/21/19 03:00 98.2 91 15 167/85 (112) 96 05/21/19 02:00 92 13 158/92 (114) 99 05/21/19 01:00 95 12 148/87 (107) 98 05/21/19 00:00 84 17 168/92 (117) 98 05/21/19 00:00 Nasal Cannula 2.0 05/20/19 23:00 98.6 88 16 148/92 (110) 98 05/20/19 22:00 91 14 150/91 (110) 97 05/20/19 21:28 98.1 05/20/19 21:00 117 18 161/95 (117) 96 05/20/19 20:50 95 Nasal Cannula 2.0 28 05/20/19 20:00 98.1 94 14 162/88 (112) 97 05/20/19 20:00 111 05/20/19 20:00 Nasal Cannula 2.0 05/20/19 19:00 95 11 155/92 (113) 98 05/20/19 18:00 97 12 158/86 (110) 98 05/20/19 17:00 119 20 170/100 (123) 98 05/20/19 16:00 Nasal Cannula 2.0 05/20/19 16:00 98.8 97 16 159/95 (116) 97 05/20/19 15:32 106 05/20/19 15:00 93 12 161/100 (120) 97 05/20/19 14:30 Nasal Cannula 2.0 05/20/19 14:00 91 15 159/95 (116) 98 05/20/19 13:00 95 18 156/87 (110) 98 05/20/19 12:00 98.9 93 12 142/85 (104) 98 05/20/19 12:00 Nasal Cannula 2.0 05/20/19 11:00 96 15 153/100 (117) 96 05/20/19 10:00 96 18 149/95 (113) 97 05/20/19 09:00 95 11 142/82 (102) 97 Intake and Output 05/21/19 05/22/19 18:59 06:59 Intake Total 1610.032 ml 1893.24020 ml Output Total 635 ml 850 ml Balance 975.032 ml 1043.20609 ml Intake Oral 236 ml IV Total 1610.032 ml 1657.69310 ml Output Urine Total 635 ml 650 ml Stool Total 200 ml Emesis 0 ml 0 ml # Voids 3 4 # Bowel Movements 3 4 Labs Test 05/19/19 14:55 05/20/19 04:20 05/20/19 09:25 05/20/19 12:10 Activated Partial Thromboplast Time 87 SEC (23-33) 63 SEC (23-33) 117 SEC (23-33) White Blood Count 23.7 K/UL (4.8-10.8) Red Blood Count 3.87 M/UL (4.70-6.10) Hemoglobin 12.1 G/DL (14.2-18.0) Hematocrit 36.0 % (42.0-52.0) Mean Corpuscular Volume 93 FL (80-99) Mean Corpuscular Hemoglobin 31.4 PG (27.0-31.0) Mean Corpuscular Hemoglobin Concent 33.8 G/DL (32.0-36.0) Red Cell Distribution Width 13.5 % (11.6-14.8) Platelet Count 164 K/UL (150-450) Mean Platelet Volume 5.2 FL (6.5-10.1) Neutrophils (%) (Auto) % (45.0-75.0) Lymphocytes (%) (Auto) % (20.0-45.0) Monocytes (%) (Auto) % (1.0-10.0) Eosinophils (%) (Auto) % (0.0-3.0) Basophils (%) (Auto) % (0.0-2.0) Differential Total Cells Counted 100 Neutrophils % (Manual) 88 % (45-75) Lymphocytes % (Manual) 6 % (20-45) Monocytes % (Manual) 6 % (1-10) Eosinophils % (Manual) 0 % (0-3) Basophils % (Manual) 0 % (0-2) Band Neutrophils 0 % (0-8) Platelet Estimate Adequate Platelet Morphology Normal Erythrocyte Sedimentation Rate 24 MM/HR (0-20) Prothrombin Time 10.9 SEC (9.30-11.50) Prothromb Time International Ratio 1.0 (0.9-1.1) Sodium Level 146 MMOL/L (136-145) Potassium Level 3.8 MMOL/L (3.5-5.1) Chloride Level 107 MMOL/L (98-107) Carbon Dioxide Level 35 MMOL/L (21-32) Anion Gap 4 mmol/L (5-15) Blood Urea Nitrogen 19 mg/dL (7-18) Creatinine 1.1 MG/DL (0.55-1.30) Estimat Glomerular Filtration Rate > 60 mL/min (>60) Glucose Level 128 MG/DL (74-106) Lactic Acid Level 2.40 mmol/L (0.4-2.0) 1.60 mmol/L (0.66-2.22) Calcium Level 8.0 MG/DL (8.5-10.1) Total Bilirubin 1.0 MG/DL (0.2-1.0) Aspartate Amino Transf (AST/SGOT) 35 U/L (15-37) Alanine Aminotransferase (ALT/SGPT) 25 U/L (12-78) Alkaline Phosphatase 78 U/L (46-116) C-Reactive Protein, Quantitative 38.2 mg/dL (0.00-0.90) Total Protein 6.5 G/DL (6.4-8.2) Albumin 2.3 G/DL (3.4-5.0) Globulin 4.2 g/dL Albumin/Globulin Ratio 0.5 (1.0-2.7) Amylase Level 16 U/L (25-115) Lipase 61 U/L (73-393) Test 05/20/19 19:45 05/21/19 05:40 05/22/19 04:01 Activated Partial Thromboplast Time 72 SEC (23-33) 76 SEC (23-33) 60 SEC (23-33) White Blood Count 21.4 K/UL (4.8-10.8) 20.9 K/UL (4.8-10.8) Red Blood Count 3.55 M/UL (4.70-6.10) 3.36 M/UL (4.70-6.10) Hemoglobin 11.2 G/DL (14.2-18.0) 10.4 G/DL (14.2-18.0) Hematocrit 33.1 % (42.0-52.0) 31.0 % (42.0-52.0) Mean Corpuscular Volume 93 FL (80-99) 92 FL (80-99) Mean Corpuscular Hemoglobin 31.4 PG (27.0-31.0) 31.0 PG (27.0-31.0) Mean Corpuscular Hemoglobin Concent 33.7 G/DL (32.0-36.0) 33.6 G/DL (32.0-36.0) Red Cell Distribution Width 13.5 % (11.6-14.8) 13.5 % (11.6-14.8) Platelet Count 151 K/UL (150-450) 157 K/UL (150-450) Mean Platelet Volume 6.1 FL (6.5-10.1) 5.7 FL (6.5-10.1) Neutrophils (%) (Auto) % (45.0-75.0) % (45.0-75.0) Lymphocytes (%) (Auto) % (20.0-45.0) % (20.0-45.0) Monocytes (%) (Auto) % (1.0-10.0) % (1.0-10.0) Eosinophils (%) (Auto) % (0.0-3.0) % (0.0-3.0) Basophils (%) (Auto) % (0.0-2.0) % (0.0-2.0) Differential Total Cells Counted 100 Neutrophils % (Manual) 86 % (45-75) Lymphocytes % (Manual) 6 % (20-45) Monocytes % (Manual) 7 % (1-10) Eosinophils % (Manual) 1 % (0-3) Basophils % (Manual) 0 % (0-2) Band Neutrophils 0 % (0-8) Platelet Estimate Adequate Platelet Morphology Normal Polychromasia 1+ Hypochromasia 1+ Sodium Level 145 MMOL/L (136-145) 145 MMOL/L (136-145) Potassium Level 3.9 MMOL/L (3.5-5.1) 3.6 MMOL/L (3.5-5.1) Chloride Level 107 MMOL/L (98-107) 107 MMOL/L (98-107) Carbon Dioxide Level 35 MMOL/L (21-32) 33 MMOL/L (21-32) Anion Gap 3 mmol/L (5-15) 5 mmol/L (5-15) Blood Urea Nitrogen 14 mg/dL (7-18) 10 mg/dL (7-18) Creatinine 1.0 MG/DL (0.55-1.30) 0.8 MG/DL (0.55-1.30) Estimat Glomerular Filtration Rate > 60 mL/min (>60) > 60 mL/min (>60) Glucose Level 124 MG/DL (74-106) 120 MG/DL (74-106) Calcium Level 7.8 MG/DL (8.5-10.1) 8.0 MG/DL (8.5-10.1) Total Bilirubin 1.0 MG/DL (0.2-1.0) 1.3 MG/DL (0.2-1.0) Aspartate Amino Transf (AST/SGOT) 31 U/L (15-37) 34 U/L (15-37) Alanine Aminotransferase (ALT/SGPT) 23 U/L (12-78) 26 U/L (12-78) Alkaline Phosphatase 71 U/L (46-116) 84 U/L (46-116) Total Protein 6.0 G/DL (6.4-8.2) 6.0 G/DL (6.4-8.2) Albumin 2.1 G/DL (3.4-5.0) 2.1 G/DL (3.4-5.0) Globulin 3.9 g/dL 3.9 g/dL Albumin/Globulin Ratio 0.5 (1.0-2.7) 0.5 (1.0-2.7) Amylase Level 22 U/L (25-115) Lipase 121 U/L (73-393) Direct Bilirubin 0.3 MG/DL (0.0-0.3) Height (Feet): 5 Height (Inches): 7.00 Weight (Pounds): 187 Objective Physical Exam General appearance: alert, cooperative, no distress Head: Normocephalic, without obvious abnormality, atraumatic Eyes: conjunctivae/corneas clear. PERRL Throat: Lips, mucosa, and tongue normal. Neck: supple, symmetrical, trachea midline, no adenopathy, thyroid: not enlarged, symmetric Lungs: clear to auscultation bilaterally. NC++ Heart: regular rate and rhythm, S1, S2 normal, no murmur Abdomen: soft, mild discomfort/tender. Bowel sounds normal Extremities: extremities normal, atraumatic Pulses: 2+ and symmetric Wayne Smith MD May 22, 2019 08:55
--- NOTE | 2019-05-22 08:55 | General Progress Note ---
Assessment/Plan Problem List: (1) Acute mesenteric ischemia ICD Codes: K55.059 - Acute (reversible) ischemia of intestine, part and extent unspecified SNOMED: 56852075 (2) Mesenteric vein thrombosis ICD Codes: K55.069 - Acute infarction of intestine, part and extent unspecified SNOMED: 49582607 (3) Acute pancreatitis ICD Codes: K85.90 - Acute pancreatitis without necrosis or infection, unspecified SNOMED: 840850075 Qualifiers: Qualified Codes: K85.90 - Acute pancreatitis without necrosis or infection, unspecified (4) ANDRE (acute kidney injury) ICD Codes: N17.9 - Acute kidney failure, unspecified SNOMED: 6269266, 93176255 (5) Fatty liver ICD Codes: K76.0 - Fatty (change of) liver, not elsewhere classified SNOMED: 151793313 (6) Elevated bilirubin ICD Codes: R17 - Unspecified jaundice SNOMED: 91470442 (7) Thrombocytopenia ICD Codes: D69.6 - Thrombocytopenia, unspecified SNOMED: 240942311 (8) Anemia due to blood loss, acute ICD Codes: D62 - Acute posthemorrhagic anemia SNOMED: 424924067 (9) Small bowel ischemia ICD Codes: K55.9 - Vascular disorder of intestine, unspecified SNOMED: 64222154 Status: progressing Assessment/Plan: This is a 54-year-old male who presented with severe abdominal pain and diarrhea first stating 8 days prior to presentation to the ED. He denies heavy alcohol use however admits that he was drinking more than usual during the holiday season. 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 His LFTs only remarkable for an elevated bilirubin of 1.8 with normal transaminases.His amylase and lipase are within normal limits, and lactic acid 1.7. His initial CT abdomen pelvis w contrast demonstrated acute uncomplicated pancreatitis and questionable SMV, portal and splenic vein thrombosis vs. flow artifact. abdominal US showed fatty liver and no gallstones or cbd dilatation. Initially admitted for acute pancreatitis. However later developed fever 100, bloody diarrhea, increased lactic acidosis to 3.8, leukocytosis 11-->22. repeat CT abdomen pelvis w contrast showed portal , splenic, and superior mesenteric vein thrombosis. Severe wall edema of the proximal jejunum. Distal jejunal and ileal dilatation without wall thickening. He was transferred to the ICU, started on heparin drip, broad spectrum antibiotics, IV fluids, IV PPI. He is hemodynamically stable. He is on the list at [facility] and waiting for transfer. 1. 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 SMV portal vein clots with intact arterial flow, patent SMA YANNI celiac artery. Acute small bowel ischemia. Hypercoagulable vs. infectious 2. Acute pancreatitis. Possibly alcohol induced vs secondary to above. 3. ANDRE-resolved 4.Leukocytosis 11->30K->20K, CXR negative, UA negative 5. Fatty infiltration of the liver 6. Elevated bilirubin 1.8->1.3 7.Previous exposure to hepatitis B 8. History of testosterone injection 9. Thrombocytopenia- resolved 10. Anemia, due to blood loss. acute Plan: ICU-->SDU Continue on heparin drip, ptt goal 60-90 continue IVF fluids continue IV PPI BID, GI follow up regarding NPO Broad spectrum antibiotics with meropenem per ID recs, blood cultures Vascular surgery, general surgery, GI, ID and hematology oncology follow up. Hypercoagulable work up per hematology/oncology: protein c/s, antithrombin iii, prothrombin gene mutation, lupus anticoag, consider Jak2 as outpatient requires anticoagulation x 3-6 months minimum stop steroid injections On transfer list at [facility] for possible thrombectomy as per IR/vascular Elevated T bili normal direct bili unlikely obstructive in nature, likely related to pancreatitis/ smv/portal thrombosis or fatty liver Trend renal function, avoid nephrotoxic medications. If worse, renal consult GI and DVT prophylaxis: Heparin drip, IV PPI I spent 75 minutes on this patient's case, and 40 mins was dedicated to critical care Critical Care Services performed include: Telemetry Review Hemodynamic measurement interpretation Laboratory data review and interpretation Radiology image review and interpretation Interpretation of ABG's Discussion of patient's care with ICU team, ICU Nursing staff and/or consulting services Subjective Date patient seen: May 22, 2019 ROS Limited/Unobtainable: No Constitutional: Reports: other - lower extremity swelling HEENT: Denies: no symptoms, eye pain, blurred vision, tearing, double vision, ear pain, ear discharge, nose pain, nose congestion, throat pain, throat swelling, mouth pain, mouth swelling, other Cardiovascular: Denies: no symptoms, chest pain, edema, irregular heart rate, lightheadedness, palpitations, syncope, other Respiratory: Denies: no symptoms, cough, orthopnea, shortness of breath, SOB with excertion, SOB at rest, sputum, stridor, wheezing, other Gastrointestinal/Abdominal: Reports: abdomen distended, black stools, rectal bleeding Genitourinary: Denies: no symptoms, burning, discharge, frequency, flank pain, hematuria, incontinence, pain, urgency, other Neurologic/Psychiatric: Denies: no symptoms, anxiety, depressed, emotional problems, headache, numbness, paresthesia, pre-existing deficit, seizure, tingling, tremors, weakness, other Endocrine: Denies: no symptoms, excessive sweating, flushing, intolerance to cold, intolerance to heat, increased hunger, increased thirst, increased urine, unexplained weight gain, unexplained weight loss, other Hematologic/Lymphatic: Denies: no symptoms, anemia, easy bleeding, easy bruising, other Allergies: Coded Allergies: No Known Allergies (Unverified , 05/16/19) Subjective following up in icu for acute on chronic mesenteric thrombosis and small bowel ischemia. Remained in ICU on heparin drip. intermittent rectal bleeding now more so dark stools. n/v has ceased. feels abdomen distended and lower extremities getting more swollen, He wants to walk. hemodynamically stable. Objective Last 24 Hour Vital Signs Date Time Temp Pulse Resp B/P (MAP) Pulse Ox O2 Delivery O2 Flow Rate FiO2 05/22/19 08:00 Nasal Cannula 2.0 05/22/19 07:00 109 16 150/93 (112) 99 05/22/19 06:00 93 13 167/89 (115) 98 05/22/19 05:00 98.4 99 11 138/82 (100) 97 05/22/19 04:56 98.6 05/22/19 04:00 Nasal Cannula 2.0 05/22/19 04:00 99 16 178/86 (116) 100 05/22/19 04:00 102 05/22/19 03:00 103 15 144/91 (108) 97 05/22/19 02:00 106 15 158/99 (118) 98 05/22/19 01:27 103 14 168/97 (120) 97 05/22/19 01:00 98.6 91 15 162/102 (122) 99 05/22/19 00:00 97 05/22/19 00:00 95 15 157/96 (116) 98 05/22/19 00:00 Nasal Cannula 2.0 05/21/19 23:00 103 13 147/99 (115) 97 05/21/19 22:00 112 19 169/94 (119) 98 05/21/19 21:00 97 16 158/94 (115) 96 05/21/19 20:00 98.6 123 18 140/83 (102) 97 05/21/19 20:00 Nasal Cannula 2.0 05/21/19 20:00 100 05/21/19 20:00 98 Nasal Cannula 2.0 28 05/21/19 19:00 103 12 157/86 (109) 95 05/21/19 18:19 190/83 05/21/19 18:14 113 18 190/98 (128) 98 05/21/19 18:00 95 17 174/90 (118) 99 05/21/19 17:00 91 11 160/96 (117) 96 05/21/19 16:00 100 05/21/19 16:00 98.9 99 12 162/87 (112) 96 05/21/19 16:00 Nasal Cannula 2.0 05/21/19 15:00 108 21 160/87 (111) 98 05/21/19 14:00 87 14 151/93 (112) 96 05/21/19 13:00 91 14 175/101 (125) 97 05/21/19 12:00 99.6 100 13 166/98 (120) 97 05/21/19 12:00 Nasal Cannula 2.0 05/21/19 12:00 95 05/21/19 11:00 87 11 183/98 (126) 97 05/21/19 10:00 88 14 185/82 (116) 97 05/21/19 09:00 93 10 171/86 (114) 97 Intake and Output 05/21/19 05/22/19 19:00 07:00 Intake Total 1610.032 ml 1767.29196 ml Output Total 510 ml 950 ml Balance 1100.032 ml 817.46275 ml Intake Oral 236 ml IV Total 1610.032 ml 1531.36292 ml Output Urine Total 510 ml 650 ml Stool Total 300 ml Emesis 0 ml 0 ml # Voids 3 4 # Bowel Movements 3 5 Laboratory Tests 05/22/19 04:01: White Blood Count 20.9H, Red Blood Count 3.36L, Hemoglobin 10.4L, Hematocrit 31.0L, Mean Corpuscular Volume 92, Mean Corpuscular Hemoglobin 31.0, Mean Corpuscular Hemoglobin Concent 33.6, Red Cell Distribution Width 13.5, Platelet Count 157, Mean Platelet Volume 5.7L, Neutrophils (%) (Auto) , Lymphocytes (%) ( Auto) , Monocytes (%) (Auto) , Eosinophils (%) (Auto) , Basophils (%) (Auto) , Neutrophils % (Manual) [Pending], Lymphocytes % (Manual) [Pending], Platelet Estimate [Pending], Platelet Morphology [Pending], Activated Partial Thromboplast Time 60H, Sodium Level 145, Potassium Level 3.6, Chloride Level 107 , Carbon Dioxide Level 33H, Anion Gap 5, Blood Urea Nitrogen 10, Creatinine 0.8 , Estimat Glomerular Filtration Rate > 60, Glucose Level 120H, Calcium Level 8.0L, Total Bilirubin 1.3H, Direct Bilirubin 0.3, Aspartate Amino Transf (AST/ SGOT) 34, Alanine Aminotransferase (ALT/SGPT) 26, Alkaline Phosphatase 84, Total Protein 6.0L, Albumin 2.1L, Globulin 3.9, Albumin/Globulin Ratio 0.5L Height (Feet): 5 Height (Inches): 7.00 Weight (Pounds): 187 Objective General Appearance: alert, no distress Lines, tubes and drains: peripheral HEENT: normocephalic, atraumatic, anicteric, mucous membranes moist, PERRL, EOMI Neck: non-tender, supple Respiratory/Chest: chest wall non-tender, lungs clear, normal breath sounds, no respiratory distress, no accessory muscle use Cardiovascular/Chest: normal peripheral pulses, regular rhythm, no gallop/ murmur, no JVD Abdomen: soft, non tender. distended, No guarding, no rebound Extremities: normal range of motion, 2-3+ pitting edema, no cyanosis Skin Exam: normal pigmentation, warm/dry Neurologic: no motor/sensory deficits, alert, oriented x 3, responsive Musculoskeletal: normal muscle bulk Amor Hopper M.D. May 22, 2019 08:55
[2019-05-22] MEDS: Docusate 100mg cap ORAL SCH (09:00)
[2019-05-22] MEDS ORDERED: Enoxaparin 80mg Inj SUBQ SCH (09:00)
[2019-05-22] MEDS: Pantoprazole Inj IVP SCH (09:19)
--- NOTE | 2019-05-22 09:42 | General Progress Note ---
Assessment/Plan Problem List: (1) Abdominal pain ICD Codes: R10.9 - Unspecified abdominal pain SNOMED: 90613211 Qualifiers: Qualified Codes: R10.84 - Generalized abdominal pain (2) Acute pancreatitis ICD Codes: K85.90 - Acute pancreatitis without necrosis or infection, unspecified SNOMED: 716691377 Qualifiers: Qualified Codes: K85.90 - Acute pancreatitis without necrosis or infection, unspecified (3) Elevated bilirubin ICD Codes: R17 - Unspecified jaundice SNOMED: [id number] Status: progressing Assessment/Plan: IVF NPO CT reviewed on heparin drip still has rectal bleed vascular surg and hematology in put appreciated IVF 100 cc repeat labs picc line placement pending TPN ordered consider colonoscopy on heparin drip if cont to bleed for diagnosis pending transfer to [facility] will fu Subjective ROS Limited/Unobtainable: Yes Allergies: Coded Allergies: No Known Allergies (Unverified , 05/16/19) Objective Last 24 Hour Vital Signs Date Time Temp Pulse Resp B/P (MAP) Pulse Ox O2 Delivery O2 Flow Rate FiO2 05/22/19 09:00 88 18 156/96 (116) 99 05/22/19 08:00 99.0 89 12 148/95 (112) 97 05/22/19 08:00 Nasal Cannula 2.0 05/22/19 07:00 109 16 150/93 (112) 99 05/22/19 06:00 93 13 167/89 (115) 98 05/22/19 05:00 98.4 99 11 138/82 (100) 97 05/22/19 04:56 98.6 05/22/19 04:00 Nasal Cannula 2.0 05/22/19 04:00 99 16 178/86 (116) 100 05/22/19 04:00 102 05/22/19 03:00 103 15 144/91 (108) 97 05/22/19 02:00 106 15 158/99 (118) 98 05/22/19 01:27 103 14 168/97 (120) 97 05/22/19 01:00 98.6 91 15 162/102 (122) 99 05/22/19 00:00 97 05/22/19 00:00 95 15 157/96 (116) 98 05/22/19 00:00 Nasal Cannula 2.0 05/21/19 23:00 103 13 147/99 (115) 97 05/21/19 22:00 112 19 169/94 (119) 98 05/21/19 21:00 97 16 158/94 (115) 96 05/21/19 20:00 98.6 123 18 140/83 (102) 97 05/21/19 20:00 Nasal Cannula 2.0 05/21/19 20:00 100 05/21/19 20:00 98 Nasal Cannula 2.0 28 05/21/19 19:00 103 12 157/86 (109) 95 05/21/19 18:19 190/83 05/21/19 18:14 113 18 190/98 (128) 98 05/21/19 18:00 95 17 174/90 (118) 99 05/21/19 17:00 91 11 160/96 (117) 96 05/21/19 16:00 100 05/21/19 16:00 98.9 99 12 162/87 (112) 96 05/21/19 16:00 Nasal Cannula 2.0 05/21/19 15:00 108 21 160/87 (111) 98 05/21/19 14:00 87 14 151/93 (112) 96 05/21/19 13:00 91 14 175/101 (125) 97 05/21/19 12:00 99.6 100 13 166/98 (120) 97 05/21/19 12:00 Nasal Cannula 2.0 05/21/19 12:00 95 05/21/19 11:00 87 11 183/98 (126) 97 05/21/19 10:00 88 14 185/82 (116) 97 Intake and Output 05/21/19 05/22/19 18:59 06:59 Intake Total 1610.032 ml 1893.64986 ml Output Total 635 ml 850 ml Balance 975.032 ml 1043.30555 ml Intake Oral 236 ml IV Total 1610.032 ml 1657.66812 ml Output Urine Total 635 ml 650 ml Stool Total 200 ml Emesis 0 ml 0 ml # Voids 3 4 # Bowel Movements 3 4 Laboratory Tests 05/22/19 04:01: White Blood Count 20.9H, Red Blood Count 3.36L, Hemoglobin 10.4L, Hematocrit 31.0L, Mean Corpuscular Volume 92, Mean Corpuscular Hemoglobin 31.0, Mean Corpuscular Hemoglobin Concent 33.6, Red Cell Distribution Width 13.5, Platelet Count 157, Mean Platelet Volume 5.7L, Neutrophils (%) (Auto) , Lymphocytes (%) ( Auto) , Monocytes (%) (Auto) , Eosinophils (%) (Auto) , Basophils (%) (Auto) , Neutrophils % (Manual) [Pending], Lymphocytes % (Manual) [Pending], Platelet Estimate [Pending], Platelet Morphology [Pending], Activated Partial Thromboplast Time 60H, Sodium Level 145, Potassium Level 3.6, Chloride Level 107 , Carbon Dioxide Level 33H, Anion Gap 5, Blood Urea Nitrogen 10, Creatinine 0.8 , Estimat Glomerular Filtration Rate > 60, Glucose Level 120H, Calcium Level 8.0L, Total Bilirubin 1.3H, Direct Bilirubin 0.3, Aspartate Amino Transf (AST/ SGOT) 34, Alanine Aminotransferase (ALT/SGPT) 26, Alkaline Phosphatase 84, Total Protein 6.0L, Albumin 2.1L, Globulin 3.9, Albumin/Globulin Ratio 0.5L Height (Feet): 5 Height (Inches): 7.00 Weight (Pounds): 187 General Appearance: alert EENT: normal ENT inspection Neck: supple Cardiovascular: tachycardia Respiratory/Chest: decreased breath sounds Abdomen: hypoactive bowel sounds, tender Extremities: non-tender Christopher Gonzalez MD May 22, 2019 09:41
--- NOTE | 2019-05-22 09:59 | NUR ---
CASE MANAGEMENT:[facility] CALL RECEIVED CALL RECEIVED FROM PATY AT [facility] REQUESTING UPDATE ON PATIENTS STATUS. INFO PROVIDED VERBALLY=ICU STATUS, H/H, DX STATES PT STATUS WILL BE PRESENTED TO MD FOR REVIEW AND WILL FOLLOW UP WITH CM WITH TRANSFER DECISION.
--- NOTE | 2019-05-22 10:28 | NUR ---
NURSE NOTES: PICC line inserted by Dr Callahan. Chest x-ray being taken now. Awaiting verification from radiologist.
--- NOTE | 2019-05-22 11:31 | Pre-Procedure Note/Attestation ---
Pre-Procedure Note/Attestation Complete Prior to Procedure Planned Procedure: not applicable Procedure Narrative: PICC Indications for Procedure Pre-Operative Diagnosis: IV access for TPN Attestation I attest that I discussed the nature of the procedure; its benefits; risks and complications; and alternatives (and the risks and benefits of such alternatives ), prior to the procedure, with the patient (or the patient's legal brewery representative). I attest that, if there was a reasonable possibility of needing a blood transfusion, the patient (or the patient's legal brewery representative) was given the [facility] standardized written summary, pursuant to the [place] Blood Safety Act ([place] Health and Safety Code # 1645, as amended). I attest that I re-evaluated the patient just prior to the surgery and that there has been no change in the patient's H&P, except as documented below: Praful Callahan MD May 22, 2019 11:31
--- NOTE | 2019-05-22 11:34 | Brief Operative Note ---
Immediate Post Operative Note Operative Note Pre-op Diagnosis: IV access for TPN Procedure: PICC Post-op Diagnosis: same as pre-op Surgeon: Nancy Perdomo Anesthesia: local Specimen: none Complications: none Fluids: none Implant(s) used?: No Praful Perdomo MD May 22, 2019 11:34
--- NOTE | 2019-05-22 11:37 | NUR ---
RADIOLOGY NOTE: RIGHT UPPER EXTREMITY PICC PLACED.
--- NOTE | 2019-05-22 12:00 | NUR ---
NURSE NOTES: Patient standing up and walking around the room at this time. Patient restless from being in bed so long. Patient states that pain is subdued at this time. Pain medication given at 1130. Patient blood pressure remains elevated at this time at 157/87. HR is 110 in sinus tachycardia rhythm. Patient on 2L NC at this time with SpO2 of 98% and no sign of respiratory distress. Will continue to monitor. Ecchymosis still noted on right upper arm and forearm. Right hand 22 gauge peripheral IV and right forearm 22 gauge peripheral IV both patent, asymptomatic, and functional. Right hand IV saline locked and Right forearm PIV running lactated ringers at 100mL/hr at this time. Patient now has PICC line of the right upper arm. Dressing dry and intact. Awaiting radiologist notification that PICC is okay to use. Call light in reach at this time. Sister at the bedside.
--- NOTE | 2019-05-22 12:11 | Diagnostic Imaging Report ---
Indications: Needs long-term IV access Technique: Procedure performed at bedside. Procedural timeout performed. Ultrasound confirms patent compressible right basilic vein. Total sterile technique, including sterile probe cover and sterile gel, sterile gloves, hand hygiene, hat, mask,, sterile gown, large sterile drape, and preparation with 2% chlorhexidine utilized. Local anesthesia with 1% lidocaine. Under real-time ultrasound guidance, puncture basilic vein using 21-gauge needle, passage 0.018 guidewire, exchange for 4 American peel-away sheath. 4 American dual-lumen power PICC cut to 40 cm. It was inserted through the peel-away sheath. Peel-away sheath and guidewire removed. Catheter fixed to the skin. Both catheter ports aspirated and flushed. Patient tolerated procedure well, without immediate complication. Followup chest x-ray obtained, documents catheter tip position at the cavoatrial junction Impression: Successful bedside placement of right arm PICC under sonographic guidance, as described above.
--- NOTE | 2019-05-22 12:56 | NUR ---
CASE MANAGEMENT[place] [place] [facility] CALL RECEIVED FROM PATY AT [facility] PATIENT ACCEPTED FOR TRANSFER ACCEPTING MD; DR. Ramy NEWMAN WILL FAX TRANSFER AGREEMENT TO DEPT WILL FOLLOW UP
--- NOTE | 2019-05-22 14:02 | Discharge Summary ---
Discharge Summary Hospital Course Date of Admission May 16, 2019 at 17:15 Date of Discharge 05/23/2019 Admitting Diagnosis Pancreatitis HPI Wayne Angel is a 54 year old male who was admitted on May 16, 2019 at 17:15 for Pancreatitis Consultations gen surgery, GI , vascular surgery, ID, Hematology oncology Hospital Course This is a 54-year-old male who presented with severe abdominal pain and diarrhea first stating 8 days prior to presentation to the ED. He denies heavy alcohol use however admits that he was drinking more than usual during the holiday season. He also later admits to custodial 3-4 years of testosterone injection use. His LFTs only remarkable for an elevated bilirubin of 1.8 with normal transaminases.His amylase and lipase are within normal limits, and lactic acid 1.7. His initial CT abdomen pelvis w contrast demonstrated acute uncomplicated pancreatitis and questionable SMV, portal and splenic vein thrombosis vs. flow artifact. abdominal US showed fatty liver and no gallstones or cbd dilatation. Initially admitted for acute pancreatitis. However later developed fever 100, bloody diarrhea, increased lactic acidosis to 3.8, leukocytosis 11-->22. repeat CT abdomen pelvis w contrast showed portal , splenic, and superior mesenteric vein thrombosis. Severe wall edema of the proximal jejunum. Distal jejunal and ileal dilatation without wall thickening. He was transferred to the ICU, started on heparin drip, broad spectrum antibiotics, IV fluids, IV PPI. He is hemodynamically stable. He is on the list at [facility] and waiting for transfer. 1. 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 SMV portal vein clots with intact arterial flow, patent SMA YANNI celiac artery. Acute small bowel ischemia. Hypercoagulable vs. infectious 2. Acute pancreatitis. Possibly alcohol induced vs secondary to above. 3. ANDRE-resolved 4.Leukocytosis 11->30K->20K, CXR negative, UA negative 5. Fatty infiltration of the liver 6. Elevated bilirubin 1.8->1.3 7.Previous exposure to hepatitis B 8. History of testosterone injection 9. Thrombocytopenia- resolved 10. Anemia, due to blood loss. acute Plan: ICU-->SDU Continue on heparin drip, ptt goal 60-90 continue IVF fluids continue IV PPI BID, GI follow up regarding NPO Broad spectrum antibiotics with meropenem per ID recs, blood cultures Vascular surgery, general surgery, GI, ID and hematology oncology follow up. Hypercoagulable work up per hematology/oncology: protein c/s, antithrombin iii, prothrombin gene mutation, lupus anticoag, consider Jak2 as outpatient requires anticoagulation x 3-6 months minimum stop steroid injections transfer to [facility] for possible thrombectomy as per IR/vascular Elevated T bili normal direct bili unlikely obstructive in nature, likely related to pancreatitis/ smv/portal thrombosis or fatty liver Trend renal function, avoid nephrotoxic medications. If worse, renal consult GI and DVT prophylaxis: Heparin drip, IV PPI I spent 75 minutes on this patient's case, and 40 mins was dedicated to critical care Critical Care Services performed include: Telemetry Review Hemodynamic measurement interpretation Laboratory data review and interpretation Radiology image review and interpretation Interpretation of ABG's Discussion of patient's care with ICU team, ICU Nursing staff and/or consulting services Discharge Medications New Medications: Heparin Sodium,Porcine/Ns/Pf (Heparin) 2,000 Unit/1000 Ml Iv.soln 2000 UNIT IV continous for 10 Days, #10 BAG Meropenem-0.9% Sodium Chloride (Meropenem-0.9% NaCl 1 Gram/50) 1 Gm/50 Ml Piggyback 1 GM IV Q8HR for 10 Days, #10 BAG Acetaminophen* (Acetaminophen 325MG Tablet*) 325 Mg Tablet 650 MG ORAL Q4H PRN for 20 Days, #20 TAB Hydromorphone HCl (Hydromorphone HCl) 1 Mg/1 Ml Syringe 1 MG IVP Q3H PRN for 7 Days, #20 MG Hydromorphone Hcl/Pf (Hydromorphone 2 Mg/Ml Syringe*) 2 Mg/1 Ml Disp.syrin 2 MG IVP Q3H PRN for 7 Days, #20 EA Metoclopramide Hcl (Metoclopramide Hcl*) 5 Mg/1 Ml Vial 10 MG IVP Q6H PRN for 7 Days, #7 VIAL Morphine Sulfate (Morphine Sulfate) 2 Mg/1 Ml Syringe 1 MG IVP Q3H PRN for 7 Days, #7 VIAL Ondansetron* (Zofran*) 4 Mg/2 Ml Vial 4 MG IVP Q6H PRN for 7 Days, #7 VIAL [Pantoprazole] () 40 MG VIAL 40 MG IVP EVERY 12 HOURS for 7 Days, #7 VIAL Discontinued Medications: Ciprofloxacin Hcl (Ciprofloxacin Hcl*) 750 Mg Tablet 500 MG ORAL DAILY for , #5 TAB 0 Refills Famotidine* (Pepcid 20mg tablet*) 20 Mg Tablet 20 MG ORAL TWICE A DAY for , #60 TAB 0 Refills Metronidazole* (Flagyl*) 500 Mg Tablet 500 MG ORAL THREE TIMES A DAY for , #21 TAB 0 Refills Ondansetron Odt* (Zofran Odt*) 8 Mg Tab.rapdis 4 MG ORAL Q6H PRN for Nausea & Vomiting, #30 TAB Discharge Condition Upon Discharge: stable Discharge Disposition Patient was discharged to acute care facility, [facility] Discharge Diagnoses: (1) Acute mesenteric ischemia (2) Mesenteric vein thrombosis (3) Small bowel ischemia (4) Acute pancreatitis (5) Fatty liver (6) Anemia due to blood loss, acute (7) ANDRE (acute kidney injury) (8) Thrombocytopenia Amor Hopper M.D. May 22, 2019 14:02
--- NOTE | 2019-05-22 14:07 | NUR ---
[employer] NOTES PT ACCEPTED TO [facility] ROOM [address] [place] [address].[facility] TO TRANSPORT PT WITH ACLS PROTOCOL WITH AN ETA 1500. NURSE TO CALL REPORT TO [phone] HALF AN HOUR BEFORE TRANSFER. PRIMARY MD MADE AWARE.
--- NOTE | 2019-05-22 14:22 | NUR ---
NURSE NOTES: Patient to be transferred to [facility]. Patient has a bed and accepting physician. Received notification from LUIS ALBERTO Longo. All transferring documents prepared. Spoke with Dr Hopper. She is aware of the transfer. Patient to be transferred at 1515. Will follow up and ensure patient is ready to go. Will call to give report to receiving nurse at 1430.
--- NOTE | 2019-05-22 15:00 | NUR ---
NURSE NOTES: Report given to LUIS ALBERTO Nicolas at [facility]. Patient will be transferred to room 5803.
--- NOTE | 2019-05-22 15:19 | Surgery Progress Note ---
Surgery Progress Note Subjective Symptoms: improved, voiding well, passing flatus, BM, pain decreased Objective Last 24 Hour Vital Signs Date Time Temp Pulse Resp B/P (MAP) Pulse Ox O2 Delivery O2 Flow Rate FiO2 05/22/19 15:00 98 13 145/86 (105) 98 05/22/19 14:00 97 15 157/87 (110) 99 05/22/19 13:00 112 17 161/91 (114) 99 05/22/19 12:00 91 05/22/19 12:00 99.6 126 32 138/98 (111) 94 05/22/19 12:00 Nasal Cannula 2.0 05/22/19 11:00 100 12 166/103 (124) 97 05/22/19 10:00 96 15 171/94 (119) 99 05/22/19 09:00 88 18 156/96 (116) 99 05/22/19 08:00 99.0 89 12 148/95 (112) 97 05/22/19 08:00 89 05/22/19 08:00 Nasal Cannula 2.0 05/22/19 07:00 109 16 150/93 (112) 99 05/22/19 06:00 93 13 167/89 (115) 98 05/22/19 05:00 98.4 99 11 138/82 (100) 97 05/22/19 04:56 98.6 05/22/19 04:00 Nasal Cannula 2.0 05/22/19 04:00 99 16 178/86 (116) 100 05/22/19 04:00 102 05/22/19 03:00 103 15 144/91 (108) 97 05/22/19 02:00 106 15 158/99 (118) 98 05/22/19 01:27 103 14 168/97 (120) 97 05/22/19 01:00 98.6 91 15 162/102 (122) 99 05/22/19 00:00 97 05/22/19 00:00 95 15 157/96 (116) 98 05/22/19 00:00 Nasal Cannula 2.0 05/21/19 23:00 103 13 147/99 (115) 97 05/21/19 22:00 112 19 169/94 (119) 98 05/21/19 21:00 97 16 158/94 (115) 96 1/12/20 20:00 98.6 123 18 140/83 (102) 97 05/21/19 20:00 Nasal Cannula 2.0 05/21/19 20:00 100 05/21/19 20:00 98 Nasal Cannula 2.0 28 05/21/19 19:00 103 12 157/86 (109) 95 05/21/19 18:19 190/83 05/21/19 18:14 113 18 190/98 (128) 98 05/21/19 18:00 95 17 174/90 (118) 99 05/21/19 17:00 91 11 160/96 (117) 96 05/21/19 16:00 100 05/21/19 16:00 98.9 99 12 162/87 (112) 96 05/21/19 16:00 Nasal Cannula 2.0 I&O Intake and Output 05/21/19 05/22/19 19:00 07:00 Intake Total 1610.032 ml 1896.86643 ml Output Total 510 ml 950 ml Balance 1100.032 ml 946.99278 ml Intake Oral 236 ml IV Total 1610.032 ml 1660.25715 ml Output Urine Total 510 ml 650 ml Stool Total 300 ml Emesis 0 ml 0 ml # Voids 3 4 # Bowel Movements 3 5 Cardiovascular: RSR Respiratory: clear Abdomen: soft, distended, non-tender, present bowel sounds Extremities: no edema, no tenderness, no cyanosis Laboratory Tests Test 05/22/19 04:01 White Blood Count 20.9 K/UL (4.8-10.8) H Red Blood Count 3.36 M/UL (4.70-6.10) L Hemoglobin 10.4 G/DL (14.2-18.0) L Hematocrit 31.0 % (42.0-52.0) L Mean Corpuscular Volume 92 FL (80-99) Mean Corpuscular Hemoglobin 31.0 PG (27.0-31.0) Mean Corpuscular Hemoglobin Concent 33.6 G/DL (32.0-36.0) Red Cell Distribution Width 13.5 % (11.6-14.8) Platelet Count 157 K/UL (150-450) Mean Platelet Volume 5.7 FL (6.5-10.1) L Neutrophils (%) (Auto) % (45.0-75.0) Lymphocytes (%) (Auto) % (20.0-45.0) Monocytes (%) (Auto) % (1.0-10.0) Eosinophils (%) (Auto) % (0.0-3.0) Basophils (%) (Auto) % (0.0-2.0) Differential Total Cells Counted 100 Neutrophils % (Manual) 84 % (45-75) H Lymphocytes % (Manual) 3 % (20-45) L Monocytes % (Manual) 13 % (1-10) H Eosinophils % (Manual) 0 % (0-3) Basophils % (Manual) 0 % (0-2) Band Neutrophils 0 % (0-8) Nucleated Red Blood Cells 1 /100 WBC Platelet Estimate Adequate Platelet Morphology Normal Activated Partial Thromboplast Time 60 SEC (23-33) H Sodium Level 145 MMOL/L (136-145) Potassium Level 3.6 MMOL/L (3.5-5.1) Chloride Level 107 MMOL/L (98-107) Carbon Dioxide Level 33 MMOL/L (21-32) H Anion Gap 5 mmol/L (5-15) Blood Urea Nitrogen 10 mg/dL (7-18) Creatinine 0.8 MG/DL (0.55-1.30) Estimat Glomerular Filtration Rate > 60 mL/min (>60) Glucose Level 120 MG/DL (74-106) H Calcium Level 8.0 MG/DL (8.5-10.1) L Total Bilirubin 1.3 MG/DL (0.2-1.0) H Direct Bilirubin 0.3 MG/DL (0.0-0.3) Aspartate Amino Transf (AST/SGOT) 34 U/L (15-37) Alanine Aminotransferase (ALT/SGPT) 26 U/L (12-78) Alkaline Phosphatase 84 U/L (46-116) Total Protein 6.0 G/DL (6.4-8.2) L Albumin 2.1 G/DL (3.4-5.0) L Globulin 3.9 g/dL Albumin/Globulin Ratio 0.5 (1.0-2.7) L Plan Problems: (1) Elevated bilirubin Assessment & Plan: Elevated T bili normal direct bili unlikely obstructive in nature No bleeding -initially but now noted to have bleeding last night and a stool. Likely etiology Pending hepatitis panel -reviewed prior from outpatient setting discussed with PCP and primary Trend labs (2) Abdominal pain Assessment & Plan: Generalized abdominal pain 10 out of 10 Clinically mildly distended nontender may be some discomfort on palpation Afebrile hemodynamic stable CT scan reviewed as below No acute surgical intervention indicated N.p.o. okay for ice chips hold on diet IV fluids IV antibiotics Trend labs Acute deterioration last night. 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 Arteries not obstructed with good inflow. Bowel edema noted distended tender bloody bowel movements Continue heparin drip Will follow with serial abdominal exams Discussed with PCP family patient and medical teams improved today on heparin gtt discussed case with family, patient, pcp, medical team leukocytosis trending down lactic acidosis resolved overall improved today getting better slowly seems to have turned the corner out of bed and ambulate We will follow with recommendations Thank you for let me participate in patient's care (3) Acute pancreatitis Assessment & Plan: There is infiltration of the peripancreatic fat and slight indistinctness of the pancreatic margins, particularly in the region of the head and uncinate process. No discrete fluid collections are demonstrated. The pancreas enhances normally. Intrahepatic portal vein radicals and the hepatic veins enhance normally. However, the main portal vein, splenic vein, superior mesenteric vein demonstrate low-attenuation than would be expected with normal enhancement, although a higher in attenuation than would be expected if thrombosed. Also, collateral veins are seen surrounding the main portal vein suggestive of cavernous transformation The liver demonstrates diffuse mild hypoattenuation, consistent with fatty change. No focal abnormalities. The gallbladder is unremarkable. The spleen, adrenals, kidneys are unremarkable. No pelvic mass or adenopathy. The prostate is enlarged. The GI tract is well opacified. The distal esophagus, stomach, duodenum are unremarkable. There is no evidence of diverticulosis or diverticulitis. The appendix is normal. No small bowel distention or small bowel wall thickening. No free or loculated intraperitoneal gas or fluid. The included lung bases are clear. The bones are unremarkable except for degenerative changes of the lumbosacral junction.. Impression: Findings compatible with uncomplicated acute pancreatitis Unusual intermediate attenuation of the portal splenic veins and superior mesenteric vein. Attenuation is lower than expected normal enhancement but somewhat higher than would be expected in thrombosis. Possibly representing flow artifact, although the presence of periportal collaterals does suggest thrombosis. Recommend duplex sonography to confirm Again demonstrated is low attenuation of the main portal vein, the splenic vein, and the superior mesenteric vein, more striking currently than previously , with a fairly definite filling defect in the main superior mesenteric vein. Numerous venous collaterals are seen in the retroperitoneum as well as evidence of cavernous periportal collaterals . The celiac axis, superior mesenteric artery, and inferior mesenteric artery are all patent. There is interim development of severe wall edema involving the proximal jejunum. Benign pneumatosis. More distally, the jejunum is dilated but the wall is not thickened. There is gradual transition to normal caliber small bowel even farther distally. The appendix is normal. The colon is upper limits of normal in caliber proximally, filled with liquid contrast, no definite wall thickening. No evidence of diverticulosis or diverticulitis. Interim development of free intraperitoneal fluid, seen within the pelvis, the mesenteric root, bilateral paracolic gutters, and surrounding the liver. Previously demonstrated pancreatic edema and peripancreatic inflammatory changes are somewhat less striking than evident previously. There is normal enhancement of the pancreas. Normal caliber pancreatic duct. The gallbladder is filled with dense contents, probably excreted contrast The liver demonstrates diffuse and patchy hypoattenuation, consistent with fatty change. The spleen, adrenals, kidneys are unremarkable. No retroperitoneal or mesenteric mass or adenopathy. The prostate is enlarged. The bladder is unremarkable. No pelvic mass or adenopathy. Incompletely descended left testicle is noted. The bones are unremarkable. The included lung bases demonstrate atelectatic changes. 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 Presence of periportal and retroperitoneal collaterals suggests that this may be an acute on chronic process Severe wall edema of the proximal jejunum. Distal jejunal and ileal dilatation without wall thickening. Findings most likely represent enteritis secondary bowel ischemia secondary to the above Interim development of free intraperitoneal fluid, likely secondary to the above Pancreatitis changes are somewhat less striking than evident on the prior exam. No evidence of pancreatic necrosis Fatty liver Prostatomegaly Pulmonary critical dependent atelectatic changes Additional Comments patient being transferred to [facility] today recommend to consider trial diet soon lower extremity duplex venous Gómez Lyon May 22, 2019 15:19
[2019-05-22] MEDS ORDERED: Tubing IV Secondary IV ONE (15:29)
--- NOTE | 2019-05-22 16:00 | NUR ---
NURSE NOTES: Patient left the unit at 1545. Patient showing no sign of acute distress. Patient accompanied by Ambulance personnel. Patient family notified of transfer at this time. Family walked out with patient. Belongings sent with patient.
[2019-05-22] MEDS ORDERED: FAT EMULSION 20% IV SCH ×2 (20:00)
[2019-05-22] MEDS ORDERED: Dextrose 10% 1,000 ML IV PRN (20:00)
[2019-05-22] MEDS ORDERED: TPN IV SCH ×2 (20:00)
== END 2019-05-22 15:30 | DRG 441 ==
LOC: EMR 12:46 → 4E 17:15 → EDBEDREQ 17:48 → ICU 05-18 11:34
PROC: 02HV33Z Insertion of Infusion Device into Superior Vena Cava, Percutaneous Approach (ICD-10-PCS; principal; 2019-05-22)
PROC: B548ZZA Ultrasonography of Superior Vena Cava, Guidance (ICD-10-PCS; principal; 2019-05-22)
DX: I81 Portal vein thrombosis (principal); K85.90 Acute pancreatitis without necrosis or infection, unspecified; K55.029 Acute infarction of small intestine, extent unspecified; K55.059 Acute (reversible) ischemia of intestine, part and extent unspecified; N17.9 Acute kidney failure, unspecified; D62 Acute posthemorrhagic anemia; K76.0 Fatty (change of) liver, not elsewhere classified; D72.829 Elevated white blood cell count, unspecified; E86.0 Dehydration; D69.6 Thrombocytopenia, unspecified
CPT/HCPCS: 36415; 36569; 71045; 74018; 74177; 76700; 76937; 80053; 80061; 81003; 82140; 82150; 82248; 82270; 82378; 82550; 83036; 83090; 83605; 83690; 83735; 84100; 84153; 84484; 85007; 85025; 85300; 85303; 85305; 85379; 85610; 85613; 85651; 85730; 86140; 86705; 86709; 86803; 87040; 87086; 87340; 93005; 93306; 93970; 96361; 96374; 96375; 99285; J2405; J2765; J7030